=== PATIENT | male | born 1975 | race Caucasian/White ===

== ENCOUNTER → 2020-06-10 14:25 | Outpatient (BNVA) | payer MEDICAID, SELFPAY | PROVIDERS: PCP Internal Medicine Geriatric Medicine; Visit Provider Surgery | DX: R10.31 Right lower quadrant pain (principal) | CPT/HCPCS: 99202 ==

== ENCOUNTER 2020-06-23 13:42 | Outpatient (REF) | payer MEDICAID, SELFPAY ==
--- NOTE | ~2020-06-23 | US_ITS ---
EXAMINATION: US pelvic, LIMITED/FOLLOW UP CLINICAL INFORMATION: Right lower quadrant pain COMPARISON: None TECHNIQUE: Grayscale and color imaging of the right lower quadrant/groin region using a linear transducer FINDINGS: There is a right groin hernia containing peristalsing bowel bowel. The neck of the hernia measures 1 cm. US/US pelvic limited IMPRESSION: Right groin hernia containing bowel.
== END 2020-06-23 13:43 | disposition home or self-care (01) ==
LOC: HO.US 13:42
PROVIDERS: PCP Internal Medicine Geriatric Medicine; Visit Provider Surgery
DX: R10.31 Right lower quadrant pain (principal)
CPT/HCPCS: 76857

== ENCOUNTER → 2020-06-30 13:11 | Outpatient (BNVA) | payer MEDICAID, SELFPAY | PROVIDERS: PCP Internal Medicine Geriatric Medicine; Visit Provider Surgery | DX: K40.90 Unilateral inguinal hernia, without obstruction or gangrene, not specified as recurrent (principal) | CPT/HCPCS: 99212 ==

== ENCOUNTER 2020-07-06 10:33 | Day surgery (SDC) | payer MEDICAID, SELFPAY ==
--- NOTE | 2020-07-02 13:11 | HO.ANESPROP2 ---
Documented by User: eKcia Griffith 07/02/20 13:13 HPI - Anesthesia Eval Consult details Narrative: 44yo M for Right Hernia Repair Inguinal with Mesh PMFSH Active Problems Active Problems: All Active Problems (Updated 06/30/20 @ 14:07 by Curt Ruiz MD) Right inguinal hernia (Acute) Past Medical History Medical History Asthma Depression GERD (gastroesophageal reflux disease) Surgical History Surgical History History of back surgery History of neck surgery Social History Social History Alcohol intake: never Smoking Status: Never smoker Advance Directives: No Advance Directives Information Provided: Yes Meds Allergies Allergy/AdvReac Type Severity Reaction Status Date / Time No Known Allergies Allergy Verified 07/06/20 10:50 Home Medications Medication Instructions Recorded Confirmed Last Taken Type oxycodone 1 tab PO Q12H 07/06/20 07/06/20 Unknown History Exam Exam Date and Time: July 02, 2020 1311 Assessment and Plan Assessment Anesthesia Assessment: Chart Reviewed Documented by User: Irena Bishop 07/06/20 11:16 PMFSH Past Medical History Medical History Asthma Depression GERD (gastroesophageal reflux disease) Surgical History Surgical History History of back surgery History of neck surgery Social History Social History Alcohol intake: never Smoking Status: Never smoker Advance Directives: No Advance Directives Information Provided: Yes Meds Allergies Allergy/AdvReac Type Severity Reaction Status Date / Time No Known Allergies Allergy Verified 07/06/20 10:50 Home Medications Medication Instructions Recorded Confirmed Last Taken Type oxycodone 1 tab PO Q12H 07/06/20 07/06/20 Unknown History Exam Airway Mallampati Class: II TM Dist: >3cm Loose/Missing/Broken Teeth: No Heart: RRR Lungs: CTA Assessment and Plan Assessment Anesthesia Assessment: Anesthesia Plan Discussed and Chart Reviewed Final Anesthetic Review NPO: Yes ASA Class: II Final Preanesthetic Review: No Changes in Pt Med Stat, Meds/Allgs Chart Reviewed and Consent Obtained/Reviewed Patient Risk: Low Procedure Risk: Low Anesthetic Plan Anesthetic Plan: GA Disposition: Standard PACU
[2020-07-06] VITALS (11 sets, daily range): BP systolic 120–145; BP diastolic 64–86; PULSE 64–75; RESP 16–20; TEMP 36.3–37; O2SAT 96–100; BMI 25.0
[2020-07-06] MEDS: Lactated Ringers 1,000 ML 100 ML IVCONT (11:23)
--- NOTE | 2020-07-06 12:39 | W.PM.OPN ---
Operative Note Operative Note Date of Service: 07/06/20 Narrative: Preoperative diagnosis: Right inguinal hernia Postoperative diagnosis: Same Procedure: Repair of right inguinal hernia Surgeon: Curt Ruiz MD Sequins Stringer: None Anesthesia: General LMA Indications for procedure: 44-year-old male presenting with a painful lump in the right groin which is increasing in size. On examination patient has a large right inguinal hernia which increases in size with Valsalva maneuvers. Operative findings:. Moderate-sized indirect right inguinal hernia Specimen: Hernia sac, lipoma of cord Estimated blood loss: 5 mL Complications: None Procedure details: Patient was brought to the OR and placed in a supine position. After administering general anesthesia the patient's abdomen was prepped with ChloraPrep and draped in a sterile fashion. A surgical time-out was called the consent confirmed. Patient received preoperative antibiotics and Venodyne boots were in place. Local anesthesia consisting of 0.5% Sensorcaine with epinephrine was infiltrated over the right inguinal ligament. Incision was then made in oblique fashion over the inguinal ligament. This carried out through subcutaneous tissue past Imani's fashion up to the external oblique aponeurosis. Additional local was infiltrated below the external oblique aponeurosis. This was then incised with a scalpel wide with the Metzenbaum scissors. Spermatic cord was then dissected free from the surrounding inguinal canal and retracted using a Nehemiah drain. The floor of the inguinal canal was examined and no direct hernia was identified. Fibers of the cremasteric muscle were then and an indirect sac was identified. This was dissected down to the internal ring. The sac was then opened and the contents reduced. The sac was then ligated with a 0 Polysorb suture. The sac was then divided above this. This was sent to the pathology department as a specimen. Attention was then directed to the direct space which was divided between Allis clamps. Fibers of the internal oblique and transversalis aponeurosis were divided and the preperitoneal space was opened. This was opened further with an open Ray-Pat. A medium PHS mesh was then obtained. The circular underlay was placed into the preperitoneal space and deployed. The overlay was then secured to the pubic tubercle, conjoined tendon, and shelving edge of the inguinal ligament using interrupted 0 Polysorb sutures. A slit was made in the mesh and the mesh were wrapped around the spermatic cord at the internal ring. This was then secured to the shelving edge of the inguinal ligament using the 0 Polysorb suture. This was felt to be loose enough to allow the tip of an index finger to pass. Wounds were checked for hemostasis. Wounds were irrigated with saline solution and suctioned dry. External oblique aponeurosis was then closed using a running 2 0 Polysorb suture. Imani's fascia and dermis reapproximated using interrupted 3-0 Polysorb sutures. Skin was then closed using a running subcuticular 4-0 Polysorb suture. Steri-Strips 2 x 2 gauze and Tegaderm were then applied. The patient tolerated the procedure well. Sponge, instrument, needle counts reported as correct. Patient was transferred to PACU in stable condition.
[2020-07-06] MEDS: oxyCODONE HCl Immed Release 5 MG TABLET 10 MG PO (12:55)
[2020-07-06] MEDS: Dextrose 5 % and Lactated Ring 1,000 ML 80 ML IVCONT (15:21)
[2020-07-06] MEDS: 0.9 % Sodium Chloride Flush 3 ML SYRINGE IVFLUSH (15:35)
[2020-07-06] MEDS: Magnesium Hydrox/Alum Hydrox 30 ML ORAL.SUSP PO (17:26)
[2020-07-06] MEDS: oxyCODONE HCl Immed Release 5 MG TABLET PO (19:25)
[2020-07-07] MEDS: Dextrose 5 % and Lactated Ring 1,000 ML 80 ML IVCONT (03:32)
[2020-07-07 03:36] VITALS: BP 115/65; PULSE 62; RESP 20; TEMP 36.3; O2SAT 97
[2020-07-07] MEDS: oxyCODONE HCl Immed Release 5 MG TABLET PO (06:26)
[2020-07-07 07:40] VITALS: BP 107/80; PULSE 93; RESP 18; TEMP 36.8; O2SAT 98
--- NOTE | 2020-07-07 07:47 | P.DS_ITS ---
DS: Providers Provider Date of Service: 07/07/20 Date of admission: 07/06/20 13:27 Primary care physician: Abdon Lopes MD Discharging clinician: Curt Ruiz DS: Diagnosis Discharge Diagnosis (1) H/O inguinal hernia repair: Status: Acute (2) Right inguinal hernia: Status: Acute DS: Medications Discharge Medications Home Medications: Home Medications Medication Instructions Recorded Confirmed oxycodone 1 tab PO Q12H 07/06/20 07/06/20 Previous Rx's Medication Instructions Recorded oxycodone 5 mg PO Q6H PRN 5 Days #14 tab 07/07/20 DS: Summary Hospital Course Hospital Course: [age] year old male patient presenting with complaints of a painful lump in the right groin. The lump would increase in size with lifting and straining but reduce with light pressure or while in the supine position. On physical examination the patient was found to have a right inguinal hernia noted in the standing position which increases in size with Valsalva maneuvers. The hernia is easily reducible with light pressure. Patient requested repair of this right inguinal hernia and he was subsequently taken to the operating room as a short- stay surgery on 07/07/2020. Operative findings included a moderate size indirect right inguinal hernia. This was repaired using a medium sized PHS mesh. The patient tolerated the procedure well. Because of the patient's incisional pain and lack of help at home he was kept as a observation patient overnight. He tolerated the observation well but does report incisional pain still. The pain seems to be covered with oral pain medication. He did report heartburn and was given antacid for this. The patient is to be discharged to home today (07/07/2020) to home. He was instructed to avoid lifting greater than 10 lb for the next 4-5 weeks. He should return to the office in approximately 1 week for wound check. He should remove the Tegaderm dressing after 3 days. He should call the office for fever, chills, nausea, vomiting, or other concerns. Time Spent with Patient Time attestation: Total time spent providing and/or coordinating discharge services: Discharge coordination time: Less than 30 minutes Physical Exam Vital Signs: Vital Signs: Last Vital Signs Temp 97.3 F 07/07/20 03:36 Pulse 62 07/07/20 03:36 Resp 20 07/07/20 03:36 BP 115/65 07/07/20 03:36 Pulse Ox 97 07/07/20 03:36 Body Mass Index 25.0 Const: General: cooperative, healthy appearing, comfortable, no acute di stress, well developed, alert, awake and Physically active Neck: Neck: Yes normal visual inspection and Yes full ROM Resp: Effort & Inspection: normal respiratory effort, no cough, no stridor and not tachypneic Auscultation: no rhonchi and no wheezes GI: Other: Incision in the right groin is clean, dry, and intact without redness or discharge Inspection: Yes normal to inspection Skin: General skin exam: no rashes or lesions noted Extrem: General: Yes no clubbing, cyanosis or edema DS: Data Data Completed and Pending Pending studies at discharge: Pending at discharge 07/06/20 11:57 Surgical [PTH] Routine Discharge Plan Discharge Patient Disposition: Home, Self-Care Referrals: Name,MD Abdon [Primary Care Provider] - Discharge Medications: New oxycodone 5 mg tablet 5 mg PO Q6H PRN (Reason: pain (scale score 7-10)) 5 Days Qty: 14 RF: 0 Continued oxycodone 10 mg tablet 1 tab PO Q12H RF: 0 Discharge Orders: Discharge Order (Routine); Ordered 07/07/20 Ordered By: Curt Ruiz Diet: advance to usual diet Activity on Discharge: No heavy lifting Activity Restrictions/Additional Instructions: No lifting > 10 pounds for 4 weeks No driving for one week Ice to the incision x 24 hours Remove dressing in 3 days Follow up in office in one week. Care Plan Goals: Return to normal activity and normal diet Health Concerns: Right inguinal hernia Plan of Treatment: Repair of right inguinal hernia with mesh Assessment: Right inguinal hernia Patient Instructions: Inguinal Hernia Repair (DC)
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
--- NOTE | 2020-07-07 11:54 | HO.POSTANES ---
Post Anesthesia Evaluation Post Anesthesia Evaluation Vital Signs: Vital Signs Temp Pulse Resp BP Pulse Ox 07/07/20 07:40 98.3 F 93 18 107/80 98 07/07/20 03:36 97.3 F 62 20 115/65 97 Anesthesia: General Mental Status: Awake Pain Control: Satisfactory Nausea/Vomiting: None Hydration: Adequate Anesthesia-Related Issues: No Anes. Related Issues
== END 2020-07-07 11:15 | disposition home or self-care (01) ==
LOC: HO.SSS 11:16 → HO.S3 07-07 07:19
PROVIDERS: PCP Internal Medicine Geriatric Medicine; Visit Provider Surgery
PROC: (CPT 49505; principal; 2020-07-06 12:30)
DX: K40.90 Unilateral inguinal hernia, without obstruction or gangrene, not specified as recurrent (principal); D17.6 Benign lipomatous neoplasm of spermatic cord; K21.9 Gastro-esophageal reflux disease without esophagitis; J45.909 Unspecified asthma, uncomplicated; F32.9 Major depressive disorder, single episode, unspecified; Z79.891 Long term (current) use of opiate analgesic
CPT/HCPCS: 49505; 88302; 88304; C1781; J0131; J0690; J1100; J1170; J2250; J2405; J3010

== ENCOUNTER → 2020-07-17 14:34 | Outpatient (BNVA) | payer MEDICAID, SELFPAY | PROVIDERS: PCP Internal Medicine Geriatric Medicine; Visit Provider Surgery ==

== ENCOUNTER 2020-12-23 16:19 | Emergency (ER) | payer MEDICAID, SELFPAY ==
[2020-12-23 16:35] VITALS: BP 135/81; PULSE 74; RESP 18; TEMP 36.8; O2SAT 77; BMI 22.3
--- NOTE | 2020-12-23 17:35 | ED_ITS ---
HPI - Male Genitourinary General Chief complaint: Urogenital-Male Stated complaint: abd pain Time Seen by Provider: 12/23/20 17:05 Source: patient Limitations: no limitations and language barrier History of Present Illness HPI Narrative: Patient presents to the ER complaining of painful urination he believes he may again STD from use of public bathroom. Patient has a history of prior inguinal hernia repair. At this time denies nausea vomiting fever chills chest pain shortness of breath. Patient denies prior history of STDs. Patient states he called his son who is an RN in advised him to the hospital to be checked. Patient describes the pain as burning with urination. Related Data Home Medications Medication Instructions Recorded Confirmed oxycodone 10 mg tablet 1 tab PO Q12H 07/06/20 07/06/20 Previous Rx's Medication Instructions Recorded oxycodone 5 mg tablet 5 mg PO Q6H PRN #14 tab 07/07/20 phenazopyridine 100 mg tablet 100 mg PO TID #6 tab 12/23/20 (Pyridium) Allergies Allergy/AdvReac Type Severity Reaction Status Date / Time No Known Allergies Allergy Verified 07/06/20 10:50 Review of Systems Constitutional: Constitutional: Denies chills, Denies fever(s) and Denies head ache(s) ENT: Denies headache(s) Cardiovascular: Cardiovascular: Denies chest pain and Denies dyspnea Respiratory: Respiratory: Denies dyspnea Gastrointestinal: Gastrointestinal: Denies diarrhea, Denies nausea and Denies vomiting Genitourinary: Genitourinary: Reports dysuria, Denies flank pain, Denies nocturia and Denies penile discharge Musculoskeletal: Musculoskeletal: Reports no additional musculoskeletal complaints Neurologic: Denies headache(s) Hematologic/Lymphatic: Hematologic/Lymphatic: Denies easy bleeding PMFSH Past Medical History Attestation statement: The following information was validated with the patient. Medical History Asthma Depression GERD (gastroesophageal reflux disease) Surgical History H/O inguinal hernia repair History of back surgery History of neck surgery Social History Social History Alcohol intake: never Advance Directives: No Advance Directives Information Provided: No service: No Current occupational status: unemployed Physical Exam Vital Signs: Vital Signs: Last Vital Signs Temp 98.2 F 12/23/20 16:35 Pulse 74 12/23/20 16:35 Resp 18 12/23/20 16:35 BP 135/81 12/23/20 16:35 Pulse Ox 77 L 12/23/20 16:35 Body Mass Index 22.3 vital signs have been reviewed as normal and appeared to be correct. Blood pressure normal. Heart rate normal. Respiration rate normal. Temperature normal. Oxygen saturation normal. Appearance: Alert. Oriented X3. No acute distress. Head: Normal external exam. Normocephalic. Atraumatic. Eyes: PERRLA. EOMI. ENT: Pharynx normal. Uvula midline. Moist mucous membranes. Neck: Soft full range of motion CVS: Heart regular rate and rhythm no murmurs and rubs Respiratory: Breath sounds are clear to auscultation bilaterally. No accessory muscle use noted. Abdomen: Soft nontender no rebound or guarding positive bowel sounds : Penile shaft no lesions noted no obvious discharge noted nontender Skin: Skin warm and dry. Normal skin color. Normal skin turgor. No rashes/lesions/lacerations noted. Extremities: No lower extremity edema. Extremities exhibit normal range of motion. Extremities nontender. Neuro: Oriented X 3. No motor deficit. No sensory deficit. Reflexes normal. Course Course Course Narrative: Dysuria Chlamydia Gonorrhea UTI UA for nitrates negative for leuk esterase UA culture for chlamydia gonorrhea pending It is unlikely patient got an STD from using a public bathroom. At this time will wait for UA culture MDM - Male Genitourinary Lab Data Labs: Lab Results 12/23/20 Range/Units 17:29 Urine Color YELLOW Urine Appearance CLEAR Urine pH 6.5 (5.0-8.0) Ur Specific [place] 1.010 (1.005-1.025) Urine Protein NEG (NEG-TRACE) MG/DL Urine Glucose (UA) NEG (NEG) MG/DL Urine Ketones NEG (NEG) MG/DL Urine Blood NEG (NEG) Urine Nitrite NEG (NEG) Ur Leukocyte Esterase NEG (NEG) Discharge Plan Discharge Clinical Impression: Cystitis Patient Disposition: Home, Self-Care Instructions: Dysuria (ED) Additional Instructions: Urine cultures pending for STDs Increase fluids rest Prescriptions: New phenazopyridine [Pyridium] 100 mg tablet 100 mg PO TID Qty: 6 RF: 0 No Action oxycodone 10 mg tablet 1 tab PO Q12H RF: 0 oxycodone 5 mg tablet 5 mg PO Q6H PRN (Reason: pain (scale score 7-10)) Qty: 14 RF: 0 Print Language: Kittitian
[2020-12-23 17:37] LABS: Appearance Urine CLEAR; Color Urine YELLOW; Glucose Urine UA NEG (NEG); Leukocyte Esterase Urine NEG (NEG); Nitrite Urine NEG (NEG); PH 6.5 (5.0-8.0); Urine Blood NEG (NEG); Urine Ketones NEG (NEG); Urine Protein NEG (NEG-TRACE)
[2020-12-23 18:00] VITALS: BP 144/87; PULSE 64; RESP 18; TEMP 37.1; O2SAT 99
[2020-12-24 01:39] LABS: CT PCR NOT DETECTED (Not Detect.); NG PCR NOT DETECTED (Not Detect.)
== END 2020-12-23 18:27 | disposition home or self-care (01) ==
LOC: HO.ED 18:10
PROVIDERS: Emergency Provider Internal Medicine; PCP Internal Medicine Geriatric Medicine
DX: N30.00 Acute cystitis without hematuria (principal); R30.0 Dysuria; Z79.899 Other long term (current) drug therapy; Z20.2 Contact with and (suspected) exposure to infections with a predominantly sexual mode of transmission
CPT/HCPCS: 81003; 87491; 87591; 99283

== ENCOUNTER 2021-02-06 00:54 | Emergency (ER) | payer OTHER, MEDICAID, SELFPAY ==
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
[2021-02-06 01:03] VITALS: BP 133/80; PULSE 101; RESP 16; TEMP 36.7; O2SAT 96; BMI 30.3
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
== END 2021-02-06 02:03 | disposition home or self-care (01) ==
PROVIDERS: Emergency Provider Internal Medicine
DX: S19.9XXA Unspecified injury of neck, initial encounter (principal); F10.920 Alcohol use, unspecified with intoxication, uncomplicated; M54.2 Cervicalgia; G44.309 Post-traumatic headache, unspecified, not intractable; V43.52XA Car driver injured in collision with other type car in traffic accident, initial encounter; Y93.9 Activity, unspecified; Y92.410 Unspecified street and highway as the place of occurrence of the external cause; Y99.9 Unspecified external cause status; Z79.899 Other long term (current) drug therapy
CPT/HCPCS: 70450; 72125; 99283; 99284

== ENCOUNTER 2022-11-16 09:26 | Outpatient (REF) | payer MEDICAID, SELFPAY ==
--- NOTE | ~2022-11-16 | XR_ITS ---
EXAMINATION: XR HAND, RIGHT INDICATION: Pain Patient reports 3 months of bilateral hand swelling and pain COMPARISON: Same-day left hand TECHNIQUE: PA, lateral, and oblique views of the right hand FINDINGS: The bones are intact. No fracture. Alignment is anatomic. Joint spaces are maintained. No erosions or soft tissue calcifications. XR/XR hand RT min 3V IMPRESSION: No bony abnormality.
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
== END 2022-11-16 09:27 | disposition home or self-care (01) ==
LOC: HO.HHCX 09:26
PROVIDERS: Visit Provider Internal Medicine Geriatric Medicine
DX: M79.641 Pain in right hand (principal); M79.642 Pain in left hand; R60.0 Localized edema
CPT/HCPCS: 73130

== ENCOUNTER 2022-11-16 10:10 | Outpatient (REF) | payer MEDICAID, SELFPAY ==
[2022-11-16 11:59] LABS: Rheumatoid Factor < 13.0 IU/mL (<15.0)
[2022-11-16 12:26] LABS: Anion Gap 12 (12-20); Blood Urea Nitrogen 10 mg/dL (9-16); Calcium 9.6 mg/dL (8.4-10.2); Carbon Dioxide 25 mmol/L (22-29); Chloride 108 mmol/L (96-108); Estimated Glomerular Filt Rate > 60; Glucose Random 104 mg/dL (60-115); Sodium 141 mmol/L (135-145)
[2022-11-16 12:37] LABS: Erythrocyte Sedimentation Rate 5 MM/HR (0-15)
[2022-11-21 12:34] LABS: Anti Nuclear Antibody Pattern Nuclear, Homogeneous; Anti Nuclear Antibody Screen POSITIVE (NEGATIVE); Anti Nuclear Antibody Titer 1:40 titer
== END 2022-11-16 10:11 | disposition home or self-care (01) ==
LOC: HO.HHCL 10:10
PROVIDERS: Visit Provider Internal Medicine Geriatric Medicine
DX: M79.641 Pain in right hand (principal); M79.642 Pain in left hand; R60.0 Localized edema
CPT/HCPCS: 36415; 80048; 85652; 86038; 86039; 86431

== ENCOUNTER 2023-02-01 08:49 | Outpatient (REF) | payer MEDICAID, SELFPAY ==
[2023-02-01 11:11] LABS: MANUAL DIFF FLAG NO
[2023-02-01 11:33] LABS: Basophils Percent Auto 0.7 % (0-2); Eosinophils Absolute Auto 0.2 X10*3/uL (0.0-0.4); Eosinophils Percent Auto 4.9 % (0-4); Hematocrit 41.5 % (42.0-52.0); Lymphocytes Absolute Auto 1.2 X10*3/uL (1.2-4.9); Lymphocytes Percent Auto 26.9 % (20-40); Mean Corpuscular HGB Conc 33.7 g/dl (31.0-36.0); Mean Corpuscular Hemoglobin 32.6 pg (27.0-33.0); Mean Corpuscular Volume 96.7 fL (80.0-98.0); Mean Platelet Volume 9.4 fL (9.4-12.4); Monocytes Absolute Auto 0.3 X10*3/uL (0.1-1.2); Monocytes Percent Auto 7.6 % (2-11); Neutrophils Absolute Auto 2.6 x10*3/uL (2.0-8.3); Neutrophils Percent Auto 59.9 % (45-73); Platelet Count 266 X10*3/uL (160-400); Red Blood Count 4.29 X10*6/uL (4.60-5.80); Red Cell Distribution Width 13.1 % (11.0-16.0); White Blood Count 4.3 X10*3/uL (4.8-10.8)
[2023-02-01 11:56] LABS: Alanine Aminotransferase 8 U/L (0-40); Albumin Level 4.2 g/dL (3.5-5.0); Alkaline Phosphatase 85 U/L (39-117); Anion Gap 12 (12-20); Aspartate Amino Transferase 14 U/L (5-37); Bilirubin Total 0.4 mg/dL (0.0-1.0); Blood Urea Nitrogen 11 mg/dL (9-16); Calcium 9.3 mg/dL (8.4-10.2); Carbon Dioxide 25 mmol/L (22-29); Chloride 108 mmol/L (96-108); Cholesterol 166 mg/dL (<200); Estimated Glomerular Filt Rate > 60; Glucose Random 99 mg/dL (60-115); HDL Cholesterol 63 mg/dL (>40); LDL Cholesterol Calculated 96 mg/dL (<100); Potassium 3.8 mmol/L (3.3-5.1); Sodium 141 mmol/L (135-145); Total Protein 7.2 g/dL (6.5-8.0); Triglycerides 39 mg/dL (<150)
[2023-02-01 12:02] LABS: HBS Num1 0.19 mIU/mL (0-7.99); HBc Num1 0.07 S/CO (0.00-0.79); HBsAGNum1 0.29 S/CO (0.00-0.99); HIV AB/AG Nonreactive (Nonreactive); HIV Num 1 0.06 S/CO (0.00-0.99); Hepatitis B Core Antibody Nonreactive (Nonreactive); Hepatitis B Surface Antigen Negative (Negative); ~HepC Num1 0.08 S/CO (0.00-0.79); ~Hepatitis B Surface Antibody NONREACTIVE (Nonreactive); ~Hepatitis C Antibody Nonreactive (Nonreactive)
[2023-02-01 13:58] LABS: CT PCR NOT DETECTED (Not Detect.); NG PCR NOT DETECTED (Not Detect.)
[2023-02-02 12:08] LABS: RPR Rapid Plasma Reagin NON-REACTIVE (NON-REACTIVE)
== END 2023-02-01 08:50 | disposition home or self-care (01) ==
LOC: HO.HHCL 08:49
PROVIDERS: Visit Provider Internal Medicine Geriatric Medicine
DX: I10 Essential (primary) hypertension (principal); Z11.3 Encounter for screening for infections with a predominantly sexual mode of transmission; Z13.220 Encounter for screening for lipoid disorders
CPT/HCPCS: 0353U; 80053; 80061; 85025; 86592; 86704; 86706; 86803; 87340; 87389

== ENCOUNTER 2023-03-15 09:49 | Emergency (ER) | payer MEDICAID, SELFPAY ==
--- NOTE | ~2023-03-15 | US_ITS ---
EXAMINATION: US SCROTUM CLINICAL INFORMATION: Pain COMPARISON: None available. TECHNIQUE: A sonogram of the scrotum was performed assessing zaragoza-scale appearance and color Doppler flow. Spectral Doppler analysis of the arterial and venous flow were performed in the testes bilaterally. FINDINGS: RIGHT: Right testicle measures 4.4 x 2.7 x 3.2 cm, volume 20 mL. Slightly heterogeneous echotexture. No focal testicular parenchymal lesions are visualized. Spectral Doppler analysis of the arterial and venous flow is slightly increased in the right testis. Small right hydrocele. Right epididymal head is normal in size. No right hydrocele is seen. Right epididymal Doppler flow is normal. LEFT: Left testicle measures 4.3 x 2.4 x 3 cm, volume 16 mL. Slightly heterogeneous echotexture.. No focal testicular parenchymal lesions are visualized. Spectral Doppler analysis of the arterial and venous flow is slightly increased in the left testis. Small left hydrocele. Left epididymal head is normal in size. No left varicocele is seen. Left epididymal Doppler flow is normal. US/US scrotum IMPRESSION: Slightly heterogeneous appearing testicles with increased vascularity questionable for orchitis.
--- NOTE | ~2023-03-15 | US_ITS ---
EXAMINATION: US SCROTUM CLINICAL INFORMATION: Pain COMPARISON: None available. TECHNIQUE: A sonogram of the scrotum was performed assessing zaragoza-scale appearance and color Doppler flow. Spectral Doppler analysis of the arterial and venous flow were performed in the testes bilaterally. FINDINGS: RIGHT: Right testicle measures 4.4 x 2.7 x 3.2 cm, volume 20 mL. Slightly heterogeneous echotexture. No focal testicular parenchymal lesions are visualized. Spectral Doppler analysis of the arterial and venous flow is slightly increased in the right testis. Small right hydrocele. Right epididymal head is normal in size. No right hydrocele is seen. Right epididymal Doppler flow is normal. LEFT: Left testicle measures 4.3 x 2.4 x 3 cm, volume 16 mL. Slightly heterogeneous echotexture.. No focal testicular parenchymal lesions are visualized. Spectral Doppler analysis of the arterial and venous flow is slightly increased in the left testis. Small left hydrocele. Left epididymal head is normal in size. No left varicocele is seen. Left epididymal Doppler flow is normal. US/US scrotum doppler IMPRESSION: Slightly heterogeneous appearing testicles with increased vascularity questionable for orchitis.
[2023-03-15 10:02] VITALS: BP 146/73; PULSE 73; RESP 19; TEMP 36.6; O2SAT 98; BMI 26.6
--- NOTE | 2023-03-15 15:04 | ED.MALEGU ---
HPI - Male Genitourinary General Chief complaint: Urogenital-Male Stated complaint: Testicular Pain Time Seen by Provider: 03/15/23 15:04 Source: patient and director medical science Mode of arrival: ambulatory Limitations: language barrier History of Present Illness HPI Narrative: Patient is a 47 year old assigned male at with no reported medical history presenting to the emergency department today with right sided testicular pain. Patient states that over the last 2 weeks he has had right sided testicular pain. Patient denies any dizziness, lightheadedness, abdominal pain, nausea, vomiting, fever, chills, blurry vision, double vision, loss of vision, chest pain, difficulty breathing, shortness of breath, back pain, night sweats, pain with urination, increased urinary frequency, increased urinary urgency, blood in his urine or stool, syncope or a near syncopal episode, recent trauma or falls, bowel incontinence, bladder incontinence, bowel retention, bladder retention, or any other complaints at this time. MD Complaint: testicle pain Onset (ago): week(s) (2) Duration: constant Location: right testicle Severity: mild Severity scale (1-10): 3 Quality: aching and dull Relieving factors: none Exacerbating factors: none Associated symptoms: Reports denies other symptoms Related Data Home Medications Medication Instructions Recorded Confirmed oxycodone 10 mg tablet 1 tab PO Q12H 07/06/20 07/06/20 Previous Rx's Medication Instructions Recorded oxycodone 5 mg tablet 5 mg PO Q6H PRN pain (scale score 07/07/20 7-10) #14 tabs phenazopyridine 100 mg tablet 100 mg PO TID 6 doses #6 tabs 12/23/20 (Pyridium) doxycycline hyclate 100 mg tablet 100 mg PO BID 7 days #14 tabs 03/15/23 Allergies Allergy/AdvReac Type Severity Reaction Status Date / Time No Known Allergies Allergy Verified 03/15/23 10:02 Review of Systems Constitutional: Constitutional: Reports no additional constitutional complaints, Denies chills, Denies fever(s) and Denies night sweats Eyes: Eyes: Reports no additional eye complaints, Denies blurry vision, Denies change in vision, Denies diplopia, Denies eye discharge, Denies loss of vision and Denies eye pain ENT: Denies dizziness Cardiovascular: Cardiovascular: Reports no additional cardiovascular complaints, Denies chest pain, Denies lightheadedness, Denies Loss of Consciousness and Denies dyspnea Respiratory: Respiratory: Reports no additional respiratory complaints and Denies dyspnea Gastrointestinal: Gastrointestinal: Reports no additional gastrointestinal complaints, Denies abdominal pain, Denies melena, Denies hematochezia, Denies change in bowel habits and Denies change in stool character Genitourinary: Genitourinary: Reports no additional male genitourinary complaints, Denies hematuria, Denies oliguria, Denies difficulty urinating, Denies dysuria, Reports testicular pain, Denies urinary frequency, Denies urinary hesitancy, Denies urinary incontinence and Denies urinary urgency Musculoskeletal: Musculoskeletal: Reports no additional musculoskeletal complaints, Denies numbness and Denies tingling Neurologic: Denies dizziness, Denies loss of vision, Denies numbness and Denies tingling Psychiatric: Psychiatric: Reports no additional psychiatric complaints Endocrine: Endocrine: Reports no additional endocrine complaints Hematologic/Lymphatic: Hematologic/Lymphatic: Reports no additional hematologic/lymphatic complaints Allergic/Immunologic: Allergic/Immunologic: Reports no additional allergic/immunologic complaints PMFSH Past Medical History Attestation statement: The following information was validated with the patient. Source: old records reviewed and nursing notes reviewed Medical History GERD (gastroesophageal reflux disease) Depression Asthma Surgical History H/O inguinal hernia repair History of back surgery History of neck surgery Social History Social History Alcohol intake: never Advance Directives: No Advance Directives Information Provided: No service: No Current occupational status: unemployed Physical Exam Vital Signs: Vital Signs: Last Vital Signs Temp 98 F 03/15/23 10:02 Pulse 73 03/15/23 10:02 Resp 19 03/15/23 10:02 BP 146/73 H 03/15/23 10:02 Pulse Ox 98 03/15/23 10:02 O2 Del Method Room Air 03/15/23 10:02 BMI result Body Mass Index 26.6 Const: General: cooperative, no acute distress, alert and awake Nutritional Appearance: well nourished Orientation/consciousness: patient oriented x3 Limitations: no limitations HEENT: Head: Yes normal to inspection and Yes atraumatic Ears: hearing grossly normal bilaterally and external ears normal General nose exam: Normal external nose present, no nasal discharge noted and no epistaxis Face and sinus: Yes normal facial exam, No abrasion and No laceration Mouth: Normal oral and palatal mucosa present, no drooling and no muffled voice Eyes: General: appearance normal, both eyes and all related structures Periorbital: periorbital findings normal Eyelids: Yes eyelids normal Conjunctivae: conjunctivae normal Pupils: Equal, round and reactive pupils present EOM: EOMs intact bilaterally Neck: Neck: Yes normal visual inspection, Yes full ROM and Yes no lymphadenopathy Chest: Chest palpation & inspection: normal inspection of the chest Resp: Effort & Inspection: normal respiratory effort and able to speak in complete sentences GI: Inspection: Yes normal to inspection : Male General Exam: Yes normal external exam Neuro: General: patient oriented x3 and moves all extremities Cranial nerves: Yes Equal, round and reactive pupils present Cognition (Neuro): normal cognition Motor exam (neuro): 5/5 motor strength present throughout Sensory Exam: Normal double simultaneous stimulation for sensation Coordination: [id number] test normal Extrem: General: Yes normal to inspection, Yes full ROM and Yes capillary refill normal Psych: Appearance: grossly normal Mental Status: mental status grossly normal Affect: normal affect Attitude: cooperative Thought process: Normal thought process present Thought content: Normal thought content present Insight: Good insight present (Psych) Medications Administered Discontinued Medications Generic Name Dose Route Start Last Admin Trade Name Freq PRN Reason Stop Dose Admin Ceftriaxone Sodium 500 mg/ 0 mg 03/15/23 15:34 03/15/23 15:42 Lidocaine HCl 1 ml IM 03/15/23 15:35 1 kit ONCE ONE Administration Doxycycline Monohydrate 100 mg 03/15/23 15:34 03/15/23 15:41 Doxycycline Monohydrate 100 Mg Capsule PO 03/15/23 15:35 100 mg ONCE ONE Administration Medical Decision Making Medical Decision Making [facility] Narrative: Patient is a 45 year old assigned male at with no reported medical history presenting to the emergency department today with testicular pain. Patient's physical exam was unremarkable. Patient's urine showed no acute process. Patient's scrotal US showed evidence of orchitis. I explained my physical exam findings as well as all test results to the patient. I answered all questions asked by the patient. I stressed the importance of the patient taking his medication as prescribed. I stressed the importance of the patient following up with his primary care provider and a urologist. I stressed the importance of the patient returning to the emergency department immediately if his symptoms were to worsen or if he were to develop any dizziness, shortness of breath, difficulty breathing, chest pain, blurry vision, loss of vision, nausea, vomiting, abdominal pain, fever, chills, back pain, or any other complaints. Patient verbalized agreement and understanding with this treatment plan and discharge. Differential Diagnosis Differential Diagnoses: The differential diagnosis associated with the presentation includes Testicular pain Testicular torsion Orchitis Epididymitis Admission/Observation Consideration of admission/observation: Escalation of care including admission/observation considered Patient would have been admitted to the hospital had his work up had any findings where hospital admission was appropriate and his clinical presentation warranted hospital admission. Lab Data MDM Lab Attestation statement: I reviewed the patient's lab results. My interpretation of these studies and their corresponding values is that they are grossly normal. Labs: Lab Results 03/15/23 Range/Units 15:41 Urine Color Yellow Urine Appearance Clear Urine pH 7.5 (5.0-9.0) Ur Specific [place] 1.010 (1.005-1.025) Urine Protein Negative (Neg-Trace) mg/dL Urine Glucose (UA) Negative (Negative) mg/dL Urine Ketones Negative (Negative) mg/dL Urine Blood Negative (Negative) Urine Nitrite Negative (Negative) Ur Leukocyte Esterase Negative (Negative) Independent Interpretation I performed an independent interpretation of an: Ultrasound Interpretation: My interpretation is in agreement with the radiologist's impression of this imaging study. EXAMINATION: US SCROTUM CLINICAL INFORMATION: Pain COMPARISON: None available. TECHNIQUE: A sonogram of the scrotum was performed assessing zaragoza-scale appearance and color Doppler flow. Spectral Doppler analysis of the arterial and venous flow were performed in the testes bilaterally. FINDINGS: RIGHT: Right testicle measures 4.4 x 2.7 x 3.2 cm, volume 20 mL. Slightly heterogeneous echotexture. No focal testicular parenchymal lesions are visualized. Spectral Doppler analysis of the arterial and venous flow is slightly increased in the right testis. Small right hydrocele. Right epididymal head is normal in size. No right hydrocele is seen. Right epididymal Doppler flow is normal. LEFT: Left testicle measures 4.3 x 2.4 x 3 cm, volume 16 mL. Slightly heterogeneous echotexture.. No focal testicular parenchymal lesions are visualized. Spectral Doppler analysis of the arterial and venous flow is slightly increased in the left testis. Small left hydrocele. Left epididymal head is normal in size. No left varicocele is seen. Left epididymal Doppler flow is normal. US/US scrotum IMPRESSION: Slightly heterogeneous appearing testicles with increased vascularity questionable for orchitis. Dictated By: Irena Escudero MD Signed By: Electronically signed by Irena Escudero MD 03/15/23 6926 Radiology Impression Discussion of test interpretation with radiology: I have reviewed the radiologist's reading. Prescription Management I considered prescription management with: Antibiotic (patient prescribed antibiotic) Discharge Plan Discharge Clinical Impression: Acute orchitis Patient Disposition: Home, Self-Care Instructions: Orchitis (ED) Additional Instructions: Follow up with your primary care provider and a urologist. Return to the emergency department immediately if your symptoms worsen or if you develop any dizziness, shortness of breath, difficulty breathing, chest pain, blurry vision, loss of vision, nausea, vomiting, abdominal pain, fever, chills, back pain, or any other complaints. Rehan un seguimiento con jeffries proveedor de atenci?n primaria y un ur?logo. Regrese al departamento de emergencias inmediatamente si collin s?ntomas empeoran o si presenta mareos, dificultad para respirar, dificultad para respirar, dolor en el pecho, visi?n borrosa, p?rdida de la visi?n, n?useas, v?mitos, dolor abdominal, fiebre, escalofr?os, dolor de espalda o cualquier otras quejas. Prescriptions: New doxycycline hyclate 100 mg tablet 100 mg PO BID 7 Days Qty: 14 0RF No Action oxycodone 10 mg tablet 1 tab PO Q12H oxycodone 5 mg tablet 5 mg PO Q6H PRN (Reason: pain (scale score 7-10)) Qty: 14 0RF phenazopyridine [Pyridium] 100 mg tablet 100 mg PO TID Qty: 6 0RF Referrals: [facility] [Provider Group] (Call to establish and follow up with a urologist. Llame para establecer y hacer un seguimiento con un ur?logo.) Name,MD Abdon [Primary Care Provider] - Interventions: ED Discharge Assessment Last Done: 03/15/23 15:57 Discharge Date/Time: 03/15/23 15:57 Print Language: Uzbek
[2023-03-15] MEDS: Doxycycline Monohydrate 100 MG CAPSULE PO (15:41)
[2023-03-15] MEDS: cefTRIAXone sodium 500 MG, Lidocaine HCl 1 % MPF 1 ML IM (15:42)
[2023-03-15 16:03] LABS: Appearance Urine Clear; Color Urine Yellow; Glucose Urine UA Negative (Negative); Leukocyte Esterase Urine Negative (Negative); Nitrite Urine Negative (Negative); PH 7.5 (5.0-9.0); Urine Blood Negative (Negative); Urine Ketones Negative (Negative); Urine Protein Negative (Neg-Trace)
== END 2023-03-15 15:57 | disposition home or self-care (01) ==
PROVIDERS: Physician Assistant Medical; Emergency Provider Emergency Medicine Emergency Medical Services; PCP Internal Medicine Geriatric Medicine
DX: N50.811 Right testicular pain (principal); R10.2 Pelvic and perineal pain; Z79.899 Other long term (current) drug therapy
CPT/HCPCS: 76870; 81003; 93975; 96372; 99282; 99284; J0696

== ENCOUNTER 2023-06-08 13:08 | Outpatient (AMB) | payer MEDICAID, SELFPAY ==
--- NOTE | 2023-06-08 13:23 | MHC.OFFVIS ---
Intake Vital Signs 06/08/23 13:40 Height 6 ft 1 in Weight 196 lb 2 oz BMI 25.9 BP 128/78 Blood Pressure Location Lt brachial Position Sitting Pulse 75 Intake Visit Reasons: right inguinal hernia, chronic pain Intake Note: Patient is seen in office for evaluation of a right inguinal hernia. Pt c/o: onset 6 months, admits to chronic pulsating pain, admits to heavy lifting taking groceries up a 4th floor, pain is worse with prolonged walking denies nausea, vomit, diarrhea or other concerns Associate Director Of Nursing Required: Yes Associate Director Of Nursing Language: Telephone Operators Supervisor Name: Hanh CHACON Information Interpreted: non-clinical & clinical Allergies No Known Allergies Allergy (Verified 06/08/23 13:40) HPI HPI Comments History of Present Illness Details 47-year-old male patient returning for evaluation of chronic right groin pain. He developed a right inguinal hernia after lifting groceries and reported significant pain in the right groin. He was subsequently identified to have had a small right inguinal hernia and underwent surgery on 07/06/2020. Findings were consistent with a moderate sized indirect right inguinal hernia. This was repaired using a medium PHS mesh as a short-stay surgery. He returns today complaining of persistent pain in the right groin. The pain began approximately 6 months ago and has persisted in the region of the incision extending down to the testicle. This began while lifting heavy groceries up to his 4th floor apartment. He feels increased pain when having sexual relationships. [facility] Medical History GERD (gastroesophageal reflux disease) Depression Asthma Surgical History H/O inguinal hernia repair (07/15/20) History of back surgery History of neck surgery Social History Alcohol intake: never service: No Current occupational status: unemployed Review of Systems Const Denies chills, Denies fever(s), Denies headache(s) and Denies poor appetite ENT Denies dizziness and Denies headache(s) Card Denies chest pain, Denies rapid heart rate, Denies palpitations and Denies slow heart rate Resp Denies chest congestion, Denies cough, Denies pain on inspiration and Denies wheezing GI Reports abdominal pain, Denies bloating, Denies change in stool character, Denies constipation, Denies diarrhea, Denies nausea, Denies vomiting and Denies hematemesis Musc Denies back pain, Denies arthralgias, Denies joint swelling and Denies numbness Skin/Breast Denies change in pigmentation, Denies erythema and Denies rash Neuro Denies dizziness, Denies headache(s) and Denies numbness Psych Denies anxiety and Denies depression Endo Denies palpitations Saul/Lymph Denies easy bleeding, Denies easy bruising and Denies lymphadenopathy Aller/Immun Denies wheezing Physical Exam Vital Signs: Last Vital Signs Pulse 75 06/08/23 13:40 BP 128/78 06/08/23 13:40 BMI result Body Mass Index 25.9 Const General: cooperative, comfortable and well developed Nutritional Appearance: well nourished Orientation/consciousness: patient oriented x3 Eyes Sclerae: sclerae normal EOM: EOMs intact bilaterally Neck Neck: Yes normal visual inspection Resp Effort & Inspection: normal respiratory effort, no cough, no respiratory distress and no stridor Cardio Jugular venous distension: no JVD GI Inspection: Yes normal to inspection Palpation (GI): Soft to palpation, Tenderness to palpation present (GI) (Right groin, no palpable hernia with Valsalva), no guarding and not rigid Abdomen image: 1. Area of tenderness Skin General skin exam: dry skin Rashes: no rashes Neuro General: patient oriented x3 and no focal motor deficits Extrem General: Yes full ROM and Yes no clubbing, cyanosis or edema Psych Appearance: grossly normal Assessment & Plan Assessment & Plan (1) H/O inguinal hernia repair: Onset Date: 07/15/20 Code(s): Z98.890 - Other specified postprocedural states; Z87.19 - Personal history of other diseases of the digestive system (2) Right inguinal pain: Code(s): R10.31 - Right lower quadrant pain Plan 47-year-old male patient returning with six-month history of abdominal pain in the right groin after lifting groceries 4 flights of stairs. The pain has persisted without any improvement. Examination reveals no definite palpable hernia in the right groin. The incision is well healed. This may indicate a muscle strain from the heavy lifting. I recommended a CT of the pelvis to better evaluate the hernia repair for possible occult recurrence. He expressed understanding will return following completion of the CT to review the results. Orders: Orders CT pelvis wo IV con Today R10.31 - Right lower quadrant pain, Z87.19 - Personal history of other diseases of the digestive system, Z98.890 - Other specified postprocedural states Coding Level of Care Code Est Pt Level 3 (19553) Diagnoses H/O inguinal hernia repair Z98.890; Z87.19 Right inguinal pain R10.31
[2023-06-08 13:40] VITALS: BP 128/78; PULSE 75; BMI 25.9
== END 2023-06-08 14:03 | disposition home or self-care (01) ==
PROVIDERS: PCP Internal Medicine Geriatric Medicine; Visit Provider Surgery
DX: R10.31 Right lower quadrant pain (principal)
CPT/HCPCS: 99213

== ENCOUNTER → 2023-06-08 13:08 | Outpatient (BNVA) | payer MEDICAID, SELFPAY | PROVIDERS: PCP Internal Medicine Geriatric Medicine; Visit Provider Surgery | DX: R10.31 Right lower quadrant pain (principal) | CPT/HCPCS: 99212 ==

== ENCOUNTER 2023-06-14 14:15 | Outpatient (REF) | payer MEDICAID, SELFPAY ==
--- NOTE | ~2023-06-14 | CT_ITS ---
EXAMINATION: CT PELVIS WITHOUT CONTRAST CLINICAL INFORMATION: Status post right inguinal hernia repair with persistent pain in the right groin. COMPARISON: None available. TECHNIQUE: Helical scanning was performed with submillimeter collimation through the pelvis. Sagittal and coronal multiplanar 2-D reconstructions were obtained. This CT examination was performed using dose optimization techniques as appropriate, variously including the following: *Automated exposure control *Adjustment of mA and/or kV according to patient size (this includes techniques or standardized protocols for targeted exams where dose is matched to indication/reason for exam; i.e. extremities or head) *Use of iterative reconstruction technique DLP: 506 mGy-cm FINDINGS: PELVIS: There is no pelvic mass. Visualized bowel loops unremarkable. The appendix is unremarkable. No evidence of diverticulitis. Scattered diverticuli seen through the colon. No evidence of pelvic or fluid collection or lymphadenopathy. Urinary bladder is partially distended, unremarkable Inguinal area reveals no evidence of hernias bilaterally. There is single superficial right inguinal lymph node measured 1.4 x 2.1 cm. Surgical vishal seen in the left inguinal region, most likely sequela of left inguinal hernia. There are no surgical vishal in the right groin OSSEOUS STRUCTURES: There are cystic spaces in ischial bones and right ilium most likely due to hemangiomas. CT/CT pelvis wo IV con IMPRESSION: No evidence of inguinal hernia. Single superficial right inguinal lymph node.
== END 2023-06-14 14:16 | disposition home or self-care (01) ==
LOC: HO.CT 14:15
PROVIDERS: PCP Internal Medicine Geriatric Medicine; Visit Provider Surgery
DX: R10.31 Right lower quadrant pain (principal); Z98.890 Other specified postprocedural states; Z87.19 Personal history of other diseases of the digestive system
CPT/HCPCS: 72192

== ENCOUNTER 2023-06-22 10:29 | Outpatient (AMB) | payer MEDICAID, SELFPAY ==
--- NOTE | 2023-06-22 10:35 | A.OFFVIS_ITS ---
Intake Vital Signs 06/22/23 10:40 Height 6 ft 1 in Weight 200 lb 4 oz BMI 26.4 BP 126/75 Blood Pressure Location Lt brachial Position Sitting Pulse 77 Intake Visit Reasons: (R) inguinal pain, discuss CT scan results Intake Note: Patient is seen in office for CT scan results, following right inguinal pain. Pt c/o: continued pain in the area, specially when driving, here for results CT:06/14/23 Retail Sales Representative Required: Yes Retail Sales Representative Language: Presser Machine Name: Hanh CHACON Information Interpreted: non-clinical & clinical Cup Trimming Machine Operator: Cup Trimming Machine Operator Present Accompanied by: Self / Same As Patient Allergies No Known Allergies Allergy (Verified 06/22/23 10:41) Medication List - Last Reconciled 06/22/23 by Curt Ruiz MD albuterol sulfate 90 mcg/actuation (Ventolin HFA) 2 puffs inhalation Q4-6H PRN amlodipine 10 mg PO QAM blood pressure test kit-large As directed cephalexin 500 mg PO Q8H 10 days hydroxyzine pamoate 25 mg PO TID PRN loratadine 10 mg PO DAILY PRN morphine ER 15 mg PO Q12H PRN tcuyrixi-wff-UI-lycopen-lutein 0.4 mg-300 mcg- 250 mcg (Cerovite Senior) 1 tab PO QAM nabumetone 500 mg PO BID naloxone 4 mg/actuation intranasal omeprazole 20 mg PO BID oxycodone 1 tab PO Q12H prazosin 2 mg PO BEDTIME sertraline 100 mg PO DAILY trazodone 50 mg PO BEDTIME HPI HPI Comments History of Present Illness Details Patient returns for follow-up examination and review of his recent pelvic CT. He continues to report some discomfort in the right groin. CT of the pelvis does reveal lymphadenopathy in the right groin but no evidence of a recurrent hernia. A copy of the report was provided to the patient. [facility] Medical History GERD (gastroesophageal reflux disease) Depression Asthma Surgical History H/O inguinal hernia repair (07/15/20) History of back surgery History of neck surgery Social History Alcohol intake: never service: No Current occupational status: unemployed Review of Systems Const Denies chills, Denies fever(s), Denies headache(s) and Denies poor appetite ENT Denies dizziness and Denies headache(s) Card Denies chest pain, Denies rapid heart rate, Denies palpitations and Denies slow heart rate Resp Denies chest congestion, Denies cough, Denies pain on inspiration and Denies wheezing GI Reports abdominal pain, Denies bloating, Denies change in stool character, Denies constipation, Denies diarrhea, Denies nausea, Denies vomiting and Denies hematemesis Musc Denies back pain, Denies arthralgias, Denies joint swelling and Denies numbness Skin/Breast Denies change in pigmentation, Denies erythema and Denies rash Neuro Denies dizziness, Denies headache(s) and Denies numbness Psych Denies anxiety and Denies depression Endo Denies palpitations Saul/Lymph Denies easy bleeding, Denies easy bruising and Denies lymphadenopathy Aller/Immun Denies wheezing Physical Exam Vital Signs: Last Vital Signs Pulse 77 06/22/23 10:40 BP 126/75 06/22/23 10:40 BMI result Body Mass Index 26.4 Const General: cooperative, comfortable and well developed Nutritional Appearance: well nourished Orientation/consciousness: patient oriented x3 Eyes Sclerae: sclerae normal EOM: EOMs intact bilaterally Neck Neck: Yes normal visual inspection Resp Effort & Inspection: normal respiratory effort, no cough, no respiratory distress and no stridor Cardio Jugular venous distension: no JVD GI Other: Continue tenderness in the right groin with no changes with Valsalva maneuvers. Faintly enlarged lymph node palpable lateral to the incision. Findings suggestive of lymphadenitis. Inspection: Yes normal to inspection Palpation (GI): Soft to palpation, Tenderness to palpation present (GI) (Right groin, no palpable hernia with Valsalva), no guarding and not rigid Skin General skin exam: dry skin Rashes: no rashes Neuro General: patient oriented x3 and no focal motor deficits Extrem General: Yes full ROM and Yes no clubbing, cyanosis or edema Psych Appearance: grossly normal Assessment & Plan Assessment & Plan (1) Lymphadenitis: Code(s): I88.9 - Nonspecific lymphadenitis, unspecified Plan 39-year-old male patient found to have an enlarged lymph node in the right groin which is tender to palpation. Enlarged lymph node was noted on his recent pelvic CT. No recurrent hernias identified. It is possible this enlarged lymph node is the source of the patient's increased inguinal pain. Therefore recommended a course of oral antibiotics. He should return as needed. Medications: New cephalexin 500 mg PO Q8H 30 caps 0RF 10 days Coding Level of Care Code Est Pt Level 3 (28316) Diagnoses Lymphadenitis I88.9
[2023-06-22 10:40] VITALS: BP 126/75; PULSE 77; BMI 26.4
== END 2023-06-22 10:47 | disposition home or self-care (01) ==
PROVIDERS: PCP Internal Medicine Geriatric Medicine; Referring Provider Internal Medicine Geriatric Medicine; Visit Provider Surgery
DX: I88.9 Nonspecific lymphadenitis, unspecified (principal)
CPT/HCPCS: 99213

== ENCOUNTER → 2023-06-22 10:29 | Outpatient (BNVA) | payer MEDICAID, SELFPAY | PROVIDERS: PCP Internal Medicine Geriatric Medicine; Visit Provider Surgery | DX: I88.9 Nonspecific lymphadenitis, unspecified (principal) | CPT/HCPCS: 99212 ==

== ENCOUNTER 2023-08-01 13:46 | Outpatient (AMB) | payer MEDICAID, SELFPAY ==
--- NOTE | 2023-08-01 13:46 | MHC.OFFVIS ---
Vital Signs 08/01/23 13:47 Height 6 ft 1 in Intake Visit Reasons: Rt lower abd pain Intake Note: This patient presents for an assessment for right lower abdominal pain. Pt c/o; RLQ pain, reports contractions , reports. Counter Server Required: Yes Counter Server Language: Dietary Services Manager Name: Renetta Information Interpreted: non-clinical & clinical Accompanied by: Self / Same As Patient Allergies No Known Allergies Allergy (Verified 08/01/23 14:00) Medication List - Last Reconciled 08/01/23 by Curt Ruiz MD albuterol sulfate 90 mcg/actuation (Ventolin HFA) 2 puffs inhalation Q4-6H PRN amlodipine 10 mg PO QAM blood pressure test kit-large As directed cephalexin 500 mg PO Q8H 10 days hydroxyzine pamoate 25 mg PO TID PRN loratadine 10 mg PO DAILY PRN morphine ER 15 mg PO Q12H PRN olwavpxp-nmn-QL-lycopen-lutein 0.4 mg-300 mcg- 250 mcg (Cerovite Senior) 1 tab PO QAM nabumetone 500 mg PO BID naloxone 4 mg/actuation intranasal omeprazole 20 mg PO BID oxycodone 1 tab PO Q12H prazosin 2 mg PO BEDTIME sertraline 100 mg PO DAILY trazodone 50 mg PO BEDTIME HPI Comments Details: Patient returns for follow-up assessment regarding his right groin pain. A recent CT revealed right inguinal lymphadenopathy and he was subsequently started on antibiotics. He reports no significant change in his symptoms since taking the antibiotics. He continues to have pain and contractions in the groin with occasional pain extending into the testicle. The pain seems to increase with standing and walking. He is unable to lift at this time. Denies any palpable lump in the groin. The pain has persisted since February 2023. [facility] Medical History GERD (gastroesophageal reflux disease) Depression Asthma Surgical History H/O inguinal hernia repair (07/15/20) History of back surgery History of neck surgery Social History Alcohol intake: never service: No Current occupational status: unemployed Review of Systems Const Denies chills, Denies fever(s), Denies headache(s) and Denies poor appetite ENT Denies dizziness and Denies headache(s) Card Denies chest pain, Denies rapid heart rate, Denies palpitations and Denies slow heart rate Resp Denies chest congestion, Denies cough, Denies pain on inspiration and Denies wheezing GI Reports abdominal pain, Denies bloating, Denies change in stool character, Denies constipation, Denies diarrhea, Denies nausea, Denies vomiting and Denies hematemesis Musc Denies back pain, Denies arthralgias, Denies joint swelling and Denies numbness Skin/Breast Denies change in pigmentation, Denies erythema and Denies rash Neuro Denies dizziness, Denies headache(s) and Denies numbness Psych Denies anxiety and Denies depression Endo Denies palpitations Saul/Lymph Denies easy bleeding, Denies easy bruising and Denies lymphadenopathy Aller/Immun Denies wheezing Physical Exam Const General: cooperative, comfortable and well developed Nutritional Appearance: well nourished Orientation/consciousness: patient oriented x3 Eyes Sclerae: sclerae normal EOM: EOMs intact bilaterally Neck Neck: Yes normal visual inspection Resp Effort & Inspection: normal respiratory effort, no cough, no respiratory distress and no stridor Cardio Jugular venous distension: no JVD GI Other: Continue tenderness in the right groin with no changes with Valsalva maneuvers. No palpable lymph nodes are appreciated. Inspection: Yes normal to inspection Palpation (GI): Soft to palpation, Tenderness to palpation present (GI) (Right groin, no palpable hernia with Valsalva), no guarding and not rigid Skin General skin exam: dry skin Rashes: no rashes Neuro General: patient oriented x3 and no focal motor deficits Extrem General: Yes full ROM and Yes no clubbing, cyanosis or edema Psych Appearance: grossly normal Assessment & Plan Assessment & Plan (1) Right inguinal pain: Code(s): R10.31 - Right lower quadrant pain Category: Medical Plan 47-year-old male patient with a previous history of a right inguinal hernia repaired in 2020 now with a 5 month history of pain in the right groin. Workup was negative for recurrent hernia. Examination today revealed no evidence of recurrent hernia. I have suggested evaluation by pain management. Patient expressed understanding and agrees with the plan. Orders: Referrals Pain Management Referral R10.31 - Right lower quadrant pain Coding Level of Care Code Est Pt Level 3 (89267) Diagnoses Right inguinal pain R10.31
== END 2023-08-01 14:07 | disposition home or self-care (01) ==
PROVIDERS: PCP Internal Medicine Geriatric Medicine; Referring Provider Internal Medicine Geriatric Medicine; Visit Provider Surgery
DX: R10.31 Right lower quadrant pain (principal)
CPT/HCPCS: 99213

== ENCOUNTER → 2023-08-01 13:46 | Outpatient (BNVA) | payer MEDICAID, SELFPAY | PROVIDERS: PCP Internal Medicine Geriatric Medicine; Visit Provider Surgery | DX: R10.31 Right lower quadrant pain (principal) | CPT/HCPCS: 99212 ==

== ENCOUNTER 2023-08-09 10:01 | Outpatient (AMB) | payer MEDICAID, SELFPAY ==
[2023-08-09 10:33] VITALS: BP 133/79; PULSE 83; RESP 14; O2SAT 97; BMI 26.5
--- NOTE | 2023-08-09 10:33 | MHC.OFFVIS ---
Vital Signs 08/09/23 10:33 Height 6 ft 1 in Weight 201 lb BMI 26.5 BP 133/79 Blood Pressure Location Lt brachial Position Sitting Respiration 14 Pulse 83 Pulse Source Pulse Oximeter Pulse Oximetry (%) 97 Oxygen Delivery Method Room Air Intake Visit Reasons: Right lower quadrant pain Machine Hoop Maker Helper Required: Yes Machine Hoop Maker Helper Name: Carlie #[id number] Allergies No Known Allergies Allergy (Verified 08/09/23 10:34) Medication List - Last Reconciled 08/09/23 by Krista Silva LPN albuterol sulfate 90 mcg/actuation (Ventolin HFA) 2 puffs inhalation Q4-6H PRN amlodipine 10 mg PO QAM blood pressure test kit-large As directed hydroxyzine pamoate 25 mg PO TID PRN loratadine 10 mg PO DAILY PRN morphine ER 15 mg PO Q12H PRN xzsqbsll-qvw-SR-lycopen-lutein 0.4 mg-300 mcg- 250 mcg (Cerovite Senior) 1 tab PO QAM nabumetone 500 mg PO BID naloxone 4 mg/actuation intranasal omeprazole 20 mg PO BID oxycodone 1 tab PO Q12H prazosin 2 mg PO BEDTIME sertraline 100 mg PO DAILY trazodone 50 mg PO BEDTIME HPI HPI Right lower quadrant pain: Details: A jailer/training officer was present during the visit 47-year-old male presents today for evaluation of right lower quadrant pain. Patient states he was sent here by Dr. Ruiz. He recently underwent a right inguinal hernia surgery. He rates the pain as severe. He describes the pain as a burning sensation that is sensitive to touch. He has not trialed any neuropathic medications as yet and has been primarily managing his pain with opioids. [facility] Medical History GERD (gastroesophageal reflux disease) Depression Asthma Surgical History H/O inguinal hernia repair (07/15/20) History of back surgery History of neck surgery Social History Alcohol intake: never service: No Current occupational status: unemployed Review of Systems Const All systems reviewed & are unremarkable except as noted in HPI and below Physical Exam Vital Signs: Last Vital Signs Pulse 83 08/09/23 10:33 Resp 14 08/09/23 10:33 BP 133/79 08/09/23 10:33 Pulse Ox 97 08/09/23 10:33 Oxygen Delivery Method Room Air 08/09/23 10:33 BMI result Body Mass Index 26.5 General: Appears afebrile. Alert and oriented. Mood and affect appropriate. Follows and participates in conversation appropriately. Respiratory effort is unlabored. Able to transition from sit to stand unassisted. There is a well-healed right inguinal hernia incision. There is a sensitivity and allodynia to touch surrounding the inguinal ligament. 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 He has not tried neuropathic medications yet, so I will send him a script for gabapentin to be titrated up gradually up to 300 mg three times a day. I cautioned him not to combine with oxycodone and morphine at the same time to prevent sedation related side effects. If he does not improve with the trial of gabapentin, we will consider right ilioinguinal and genitofemoral nerve blocks under ultrasound-guidance in 2 months from now. If his pain is refractory to these interventions, we may consider neuromodulation in the future. Today's visit was conducted with the help of a jailer/training officer. Scribed for Dr. Parks by Anna Oliveira, medical record technician, on 05/10/2023. I, Dr. Parks, have personally reviewed and agree with the information entered by the scribe. Medications: New gabapentin 300 mg PO TID 90 caps 0RF Coding Level of Care Code New Pt Level 3 (72248) Diagnoses Ilioinguinal neuralgia G57.90
== END 2023-08-09 10:56 | disposition home or self-care (01) ==
PROVIDERS: PCP Internal Medicine Geriatric Medicine; Referring Provider Surgery; Visit Provider Internal Medicine
DX: G57.90 Unspecified mononeuropathy of unspecified lower limb (principal)
CPT/HCPCS: 99203

== ENCOUNTER → 2023-08-09 10:01 | Outpatient (BNVA) | payer MEDICAID, SELFPAY | PROVIDERS: PCP Internal Medicine Geriatric Medicine; Referring Provider Surgery; Visit Provider Internal Medicine | DX: G57.90 Unspecified mononeuropathy of unspecified lower limb (principal) | CPT/HCPCS: 99202 ==

== ENCOUNTER 2024-01-30 10:13 | Emergency (ER) | payer MEDICAID, SELFPAY | END 2024-01-30 12:06 | disposition left against medical advice (07) | PROVIDERS: Emergency Provider Emergency Medicine; PCP Internal Medicine Geriatric Medicine | DX: M79.673 Pain in unspecified foot (principal) ==

== ENCOUNTER 2024-01-30 13:11 | Outpatient (REF) | payer MEDICAID, SELFPAY ==
--- NOTE | ~2024-01-30 | XR_ITS ---
EXAMINATION: XR ANKLE, RIGHT XR FOOT, RIGHT CLINICAL INFORMATION: Right ankle and foot pain. Medial pain and plantar foot pain. Twisting injury. Evaluate for fracture. COMPARISON: Right ankle and foot radiographs dated 10/24/2017. TECHNIQUE: AP, oblique, and lateral views of the right ankle and foot. FINDINGS: RIGHT ANKLE: No acute fracture or dislocation. The ankle mortise is maintained. No joint space narrowing or marginal osteophytes. No talar osteochondral lesion. No abnormal soft tissue calcification. Trace ankle joint effusion. RIGHT FOOT: No acute fracture or dislocation. Normal tarsal alignment. No joint space narrowing or marginal osteophytes. No osseous erosion. No abnormal soft tissue calcification. XR/XR foot RT min 3V IMPRESSION: RIGHT ANKLE: No acute osseous abnormality. Trace ankle joint effusion. RIGHT FOOT: No acute osseous abnormality. Electronically signed by: Julius Orellana MD 01/31/2024 09:14 AM [facility] Workstation: [id number]
--- NOTE | ~2024-01-30 | XR_ITS ---
EXAMINATION: XR ANKLE, RIGHT XR FOOT, RIGHT CLINICAL INFORMATION: Right ankle and foot pain. Medial pain and plantar foot pain. Twisting injury. Evaluate for fracture. COMPARISON: Right ankle and foot radiographs dated 10/24/2017. TECHNIQUE: AP, oblique, and lateral views of the right ankle and foot. FINDINGS: RIGHT ANKLE: No acute fracture or dislocation. The ankle mortise is maintained. No joint space narrowing or marginal osteophytes. No talar osteochondral lesion. No abnormal soft tissue calcification. Trace ankle joint effusion. RIGHT FOOT: No acute fracture or dislocation. Normal tarsal alignment. No joint space narrowing or marginal osteophytes. No osseous erosion. No abnormal soft tissue calcification. XR/XR ankle RT min 3V IMPRESSION: RIGHT ANKLE: No acute osseous abnormality. Trace ankle joint effusion. RIGHT FOOT: No acute osseous abnormality. Electronically signed by: Julius Orellana MD 01/31/2024 09:14 AM [facility] Workstation: [id number]
== END 2024-01-30 13:12 | disposition home or self-care (01) ==
LOC: HO.HHCX 13:11
PROVIDERS: Visit Provider Student in an Organized Health Care Education/Training Program
DX: M25.571 Pain in right ankle and joints of right foot (principal); M79.671 Pain in right foot
CPT/HCPCS: 73610; 73630

== ENCOUNTER 2024-07-22 15:02 | Outpatient (REF) | payer MEDICAID, SELFPAY ==
--- NOTE | ~2024-07-22 | XR_ITS ---
EXAMINATION: XR ANKLE, RIGHT CLINICAL INFORMATION: swelling at lateral malleolus COMPARISON: January 30, 2024. TECHNIQUE: AP, lateral, and mortise views of the right ankle. FINDINGS: No cortical disruption or malalignment. No lytic or blastic lesions. Subtle calcifications in the anterior tibiotalar bursa. XR/XR ankle RT min 3V IMPRESSION: No acute fracture or dislocation. Electronically signed by: Nikita Moore MD 07/22/2024 03:22 PM EDT
--- OUTSIDE RECORDS SUMMARY | 2024-07-22 17:55 | XMS_ITS | Encounter Summary ---
Author Organization [employer] Address [address] [facility] [address] [place] [address] Care Team Providers Care Precision Lens Polisher Name Role Phone Name, Abdon GRAJEDA Primary Care Provider [phone] Reason for Visit * Reason Comments Med Refill Encounter Details Date Type Department Care Team ([facility] st Contact Info) Description 07/22/2024 Refill [facility] [address] [place], [place] [id number] Name, MD Abdon [address] [place], [place] [id number] Asthma, unspecified asthma severity, unspecified whether complicated, unspecified whether persistent Social History Tobacco Use Types Packs/Day Years Used Date Smoking Tobacco: Former Cigarettes Smokeless Tobacco: Never Depression Answer Date Recorded Patient Health Questionnaire-9 Score 6 12/12/2023 Patient Health Questionnaire-9 Score 6 12/12/2023 Last PHQ-9: Questionnaire Data Not on file 0 12/12/2023 Housing Stability Answer Date Recorded What is your housing situation today? I have verona schumacher 07/20/[address] you li ve. Do you have problems with any of the following? Pests such as bugs, ants, or mice;Inadequate heat 07/20/2023 Food Insecurity Answer Date Recorded Within the past 12 months, y ou worried that your food would run out before you got money to buy more: Never True 07/20/2023 Within the past 12 months,th e food you bought just didn't last and you didn't have enough money to get more: Never True Transportation Answer Date Recorded In the past 12 months, has l ack of transportation kept you from medical appts, meetings, work or from getting things needed for daily living? No 05/24/2023 Utilities Answer Date Recorded In the past 12 months, has t he electric, gas, oil or water company threatened to shut off services in your home? No 05/24/2023 Depression Answer Date Recorded Patient Health Questionnaire-2 Score 2 12/12/2023 Sex and Gender Information Value Date Recorded Sex Assigned at Male 01/24/2022 10:33 AM EDT Legal Sex Male 10:33 AM EDT Gender Identity Male 01/24/2022 10:33 AM EDT Sexual Orientation Straight 01/24/2022 10 :33 AM EDT documented as of this encounter Plan of Treatment Upcoming Encounters Date Type Department Care Team (Late st Contact Info) Description 07/29/2024 3:30 PM EDT Office Visit [address] [address] NameAbdon MD [address] [place] [id number] 09/23/2024 10:30 AM EDT Clinical Support [address] [id number] Ciarra De Leon, KATHERINE documented as of this encounter Goals Goal Patient Goal Type Associated Problems Recent Progress Patient-Stated? Author Blood Pressure < 140/90 Blood Pressure 147/92(2024 2:45 PM EDT) No Puia, Joanne, PharmD Record your blood pressure periodically Blood Pressure No Puia, Joanne, PharmD documented as of this encounter Visit Diagnoses Diagnosis Asthma, unspecified asthma severity, unspecified whether complicated, unspecified whether persistent documented in this encounter Additional Health Concerns Assessment Noted Time PHQ-9 Depression Total Score: 6 12/12/19 24 9:48 AM EDT documented as of this encounter Care Teams Precision Lens Polisher Relationship Specialty Start Date End Date Name, MD Abdon [address] [place] [id number] PCP - General Family Medicine 07/27/17 documented as of this encounter
--- OUTSIDE RECORDS SUMMARY | 2024-07-22 17:55 | XMS_ITS | Encounter Summary ---
Author Organization [employer] Address [address] [facility] [address] [place] [address] Care Team Providers Care Swimming Pool Servicer Name Role Phone Name, Abdon GRAJEDA Primary Care Provider [phone] Joanne Jaime PharmD Unavailable [phone] Nicolette Robledo RN Unavailable [phone] Blaine Day Unavailable Unavailable Reason for Visit * Reason Comments Med Refill Encounter Details Date Type Department Care Team (Late st Contact Info) Description 02/13/2023 Refill [facility] [address] [place], [place] [phone] Name, MD Abdon [address] [place] [address] Chronic pain syndrome Social History Tobacco Use Types Packs/Day Years Used Date Smoking Tobacco: Former Cigarettes Smokeless Tobacco: Never Depression Answer Date Recorded Patient Health Questionnaire-9 Score 20 11/16/2022 Housing Stability Answer Date Recorded What is your housing situation today? I have verona schumacher 01/19/[address] you li ve. Do you have problems with any of the following? None of the above 01/19/2023 Food Insecurity Answer Date Recorded Within the past 12 months, y ou worried that your food would run out before you got money to buy more: Never True 01/19/2023 Within the past 12 months,th e food you bought just didn't last and you didn't have enough money to get more: Never True Transportation Answer Date Recorded In the past 12 months, has l ack of transportation kept you from medical appts, meetings, work or from getting things needed for daily living? No 01/19/2023 Utilities Answer Date Recorded In the past 12 months, has t he electric, gas, oil or water company threatened to shut off services in your home? No 01/19/2023 Depression Answer Date Recorded Patient Health Questionnaire-2 Score 6 11/16/2022 Sex and Gender Information Value Date Recorded Sex Assigned at Male 01/24/2022 10:33 AM EDT Legal Sex Male 10:33 AM EDT Gender Identity Male 01/24/2022 10:33 AM EDT Sexual Orientation Straight 01/24/2022 10 :33 AM EDT documented as of this encounter Plan of Treatment Upcoming Encounters Date Type Department Care Team (Late st Contact Info) Description 07/29/2024 3:30 PM EDT Office Visit [address] [address] NameAbdon MD [address] [place] [phone] 09/23/2024 10:30 AM EDT Clinical Support [address] [address] Ciarra De Leon, KATHERINE documented as of this encounter Goals Goal Patient Goal Type Associated Problems Recent Progress Patient-Stated? Author Blood Pressure < 140/90 Blood Pressure 147/92(2024 2:45 PM EDT) No Puia, Joanne, PharmD Record your blood pressure periodically Blood Pressure No Puia, Joanne, PharmD documented as of this encounter Visit Diagnoses Diagnosis Chronic pain syndrome documented in this encounter Additional Health Concerns Assessment Noted Time PHQ-9 Depression Total Score: 20 023 9:16 AM EDT documented as of this encounter Care Teams Swimming Pool Servicer Relationship Specialty Start Date End Date Abdon Lopes MD [address] [place] [id number] PCP - General Family Medicine 07/27/17 Puia, Joanne, PharmD [address] [place] [id number] Pharmacist Internal Medicine 07/27/21 03/10/24 Nicolette Robledo RN [address] [place] [phone] Armature And Rotor WinderEducation Consultant Medicine 08/25/23 10/22/23 Blaine Day Community Health Worker 08/29/23 10/22/23 documented as of this encounter
--- OUTSIDE RECORDS SUMMARY | 2024-07-22 17:55 | XMS_ITS | Encounter Summary ---
Author Organization [employer] Address [address] [facility] 7t [place] [address] Care Team Providers Care Showroom Consultant Name Role Phone Name, Abdon GRAJEDA Primary Care Provider [phone] Joanne Jaime PharmD Unavailable [phone] Nicolette Robledo RN Unavailable [phone] Blaine Day Unavailable Unavailable Reason for Visit * Reason Comments Med Refill Encounter Details Date Type Department Care Team (Late st Contact Info) Description 09/04/2023 Refill [facility] [address] [place] [address] Name, MD Abdon [address] [place] [address] Chronic pain syndrome; Pain in right hand; Other specified soft tissue disorders; Heartburn Social History Tobacco Use Types Packs/Day Years Used Date Smoking Tobacco: Former Cigarettes Smokeless Tobacco: Never Depression Answer Date Recorded Patient Health Questionnaire-9 Score 19 05/24/2023 Patient Health Questionnaire-9 Score 19 05/24/2023 Last PHQ-9: Questionnaire Data Not on file 0 05/24/2023 Housing Stability Answer Date Recorded What is [...] Date Recorded Patient Health Questionnaire-2 Score 6 05/24/2023 Sex and Gender Information Value Date Recorded Sex Assigned at Male 01/24/2022 10:33 AM EDT Legal Sex Male 10:33 AM EDT Gender Identity Male 01/24/2022 10:33 AM EDT Sexual Orientation Straight 01/24/2022 10 :33 AM EDT documented as of this encounter Plan of Treatment Upcoming Encounters Date Type Department Care Team (Late st Contact Info) Description 07/29/2024 3:30 PM EDT Office Visit [address] [address] Abdon Lopes MD [address] [place] [address] 09/23/2024 10:30 AM EDT Clinical Support [address] [address] Ciarra De Leon, RN documented as of this encounter Goals Goal Patient Goal Type Associated Problems Recent Progress Patient-Stated? Author Blood Pressure < 140/90 Blood Pressure 147/92(2024 2:45 PM EDT) No Puia, Joanne, PharmD Record your blood pressure periodically Blood Pressure No Puia, Joanne, PharmD documented as of this encounter Visit Diagnoses Diagnosis Chronic pain syndrome Pain in right hand Other specified soft tissue disorders Heartburn documented in this encounter Additional Health Concerns Assessment Noted Time PHQ-9 Depression Total Score: 19 024 9:12 AM EST documented as of this encounter Care Teams Showroom Consultant Relationship Specialty Start Date End Date Abdon Lopes MD [address] [place] [address] PCP - General Family Medicine 07/27/17 Joanne Jaime, LaraD [address] [place] [address] Pharmacist Internal Medicine 07/27/21 03/10/24 Nicolette Robledo RN [address] [place] [address] Motor Vehicle AssemblerMechanical Service Representative Medicine 08/25/23 10/22/23 Blaine Day Community Health Worker 08/29/23 10/22/23 documented as of this encounter
--- OUTSIDE RECORDS SUMMARY | 2024-07-22 17:55 | XMS_ITS | Encounter Summary ---
Author Organization [employer] Address 75 [facility] 7t [place] [address] Care Team Providers Care Flight Crew Scheduler Name Role Phone Name, Abdon RGAJEDA Primary Care Provider [phone] Reason for Visit * Reason Comments Med Refill Encounter Details Date Type Department Care Team ([facility] st Contact Info) Description 07/19/2024 Refill [facility] MED[facility]INE 230 [place], [place] [phone] Name, MD Abdon 230 [place], [place] [phone] Social History Tobacco Use Types Packs/Day Years [...] Description 07/29/2024 3:30 PM EDT Office Visit [address] [address] NameAbdon MD [address] [place] [address] 09/23/2024 10:30 AM EDT Clinical Support [address] [address] Ciarra De Leon, RN documented as of this encounter Goals Goal Patient Goal Type Associated Problems Recent Progress Patient-Stated? Author Blood Pressure < 140/90 Blood Pressure 147/92(2024 2:45 PM EDT) No Puia, Joanne, PharmD Record your blood pressure periodically Blood Pressure No Ernst Jaimeyssa, PharmD documented as of this encounter Visit Diagnoses Not on filedocumented in this encounter Additional Health Concerns Assessment Noted Time PHQ-9 Depression Total Score: 6 12/12/19 24 9:48 AM EDT documented as of this encounter Care Teams Flight Crew Scheduler Relationship Specialty Start Date End Date Abdon Lopes MD [address] [place] [phone] PCP - General Family Medicine 07/27/17 documented as of this encounter
--- OUTSIDE RECORDS SUMMARY | 2024-07-22 17:55 | XMS_ITS | Encounter Summary ---
Author Organization [employer] Address 75 [facility] 7t [place] [address] Care Team Providers Care Document Image Technician Name Role Phone Name, Abdon GRAJEDA Primary Care Provider [phone] Joanne Jaime PharmD Unavailable [phone] Nicolette Robledo RN Unavailable [phone] Blaine Day Unavailable Unavailable Reason for Visit * Reason Onset Date Comments Handicap Placard 09/27/2023 Encounter Details Date Type Department Care Team (Late st Contact Info) Description 09/27/2023 Telephone [facility] MEDICINE 230 [place], [place] [phone] Name, MD Abdon [address] [place] [address] Handicap Placard Social History Tobacco Use Types Packs/Day Years Used Date Smoking Tobacco: Former Cigarettes Smokeless Tobacco: Never Depression Answer Date Recorded Patient Health Questionnaire-9 Score 19 05/24/2023 Patient Health Questionnaire-9 Score 19 05/24/2023 Last PHQ-9: Questionnaire Data Not on file 0 05/24/2023 Housing Stability Answer Date Recorded What is your housing situation today? I have verona endy 07/20/[address] you li [...] AM EDT documented as of this encounter Miscellaneous Notes * Telephone Encounter - Manny Paul RN - 09/29/2023 8:43 AM EDT T/C to pt. For below message, cannot see any discussion regarding handicap card with PCP, call goesdirect on voice mail, mail box is full not able to LVM. * Telephone Encounter - Chandu Robert - 09/27/2023 3:51 PM EDT Tc from patient calling to request the status of the handicap placard states has been waiting and had not received a response documented in this encounter Plan of Treatment Upcoming Encounters Date Type Department Care Team (Late st Contact Info) Description 07/29/2024 3:30 PM EDT Office Visit [facility] [address] [place] [address] Name, MD Abdon [address] [place] [address] 09/23/2024 10:30 AM EDT Clinical Support [address] [address] Ciarra De Leno, RN documented as of this encounter Goals Goal Patient Goal Type Associated Problems Recent Progress Patient-Stated? Author Blood Pressure < 140/90 Blood Pressure 147/92(2024 2:45 PM EDT) No Joanne Jaime PharmFan Record your blood pressure periodically Blood Pressure No Joanne Jaime PharmD documented as of this encounter Visit Diagnoses Not on filedocumented in this encounter Additional Health Concerns Assessment Noted Time PHQ-9 Depression Total Score: 19 024 9:12 AM EST documented as of this encounter Care Teams Document Image Technician Relationship Specialty Start Date End Date Name, MD Abdon [address] [place] [address] PCP - General Family Medicine 07/27/17 Joanne Jaime PharmD [address] [place] [address] Pharmacist Internal Medicine 07/27/21 03/10/24 Nicolette Robledo RN [address] [place] [address] Plant GuardNuclear Medicine Chief Technologist Medicine 08/25/23 10/22/23 Blaine Day Community Health Worker 08/29/23 10/22/23 documented as of this encounter
--- OUTSIDE RECORDS SUMMARY | 2024-07-22 17:55 | XMS_ITS | Encounter Summary ---
Author Organization [employer] Address 75 [facility] 7t [place] [address] Care Team Providers Care Jukebox Checker Name Role Phone Name, Abdon GRAJEDA Primary Care Provider [phone] Reason for Visit * Reason Comments Ankle Pain Encounter Details Date Type Department Care Team (Late st Contact Info) Description 07/22/2024 3:20 PM EDT Office Visit [facility] 230 [place], [place] [phone] Judy Powers MD [address] [place], [place] [phone] Acute right ankle pain (Primary Dx); Schizoaffective disorder, unspecified type (CMS/HCC) Social History Tobacco Use Types Packs/Day Years [...] AM EDT documented as of this encounter Last Filed Vital Signs Vital Sign Reading Time Taken Comments Blood Pressure 147/92 07/22/2024 2:45 PM EDT Pulse 80 07/22/2024 2:45 PM EDT Temperature 36.9 ??C (98.5 ??F) 07/22/2024 2:45 PM ED T Respiratory Rate 19 07/22/2024 2:45 PM EDT Oxygen Saturation 98% 07/22/2024 2:45 PM EDT Inhaled Oxygen Concentration - - Weight 87 kg (191 lb 12.8 oz) 07/22/2024 2:45 PM EDT Height - - Body Mass Index 24.63 03/12/2024 11:23 AM EST documented in this encounter Progress Notes * Judy Powers MD - 07/22/2024 3:20 PM EDT SUBJECTIVE: Chandu Wylie is a 48 y.o. year old male who presents for acute visit. Denies recent illness, ER visit, or hospitalization. Acute Concerns: 01/2024 TECHNIQUE: AP, oblique, and lateral views of the right ankle and foot. FINDINGS: RIGHT ANKLE: No acute fracture or dislocation. The ankle mortise is maintained. No joint space narrowing or marginal osteophytes. No talar osteochondral lesion. No abnormal soft tissue calcification. Trace ankle joint effusion. RIGHT FOOT: No acute fracture or dislocation. Normal tarsal alignment. No joint space narrowing or marginal osteophytes. No osseous erosion. No abnormal soft tissue calcification. XR/XR ankle RT min 3V IMPRESSION: RIGHT ANKLE: No acute osseous abnormality. Trace ankle joint effusion. RIGHT FOOT: No acute osseous abnormality. Patient Active Problem List Diagnosis Asthma Chronic back pain Chronic pain syndrome Moderate episode of recurrent major depressive disorder (CMS/HCC) Hemangioma Hypertensive disorder Schizoaffective disorder (CMS/HCC) H/O Spinal surgery Past Surgical History: Procedure Laterality Date CERVICAL SPINE SURGERY HERNIA REPAIR Right 07/06/2020 No family history on file. Social History Social History Narrative Not on file Review of Systems OBJECTIVE: Vitals: 07/22/24 1445 BP: (!) 147/92 BP Location: Left arm Patient Position: Sitting BP Cuff Size: Adult Pulse: 80 Resp: 19 Temp: 98.5 ??F (36.9 ??C) TempSrc: Temporal SpO2: 98% Weight: 191 lb 12.8 oz (87 kg) Physical Exam ASSESSMENT/PLAN Problem List Items Addressed This Visit None Follow Up: per PCP recall months or sooner prn No Known Allergies Current Outpatient Medications: acetaminophen (Tylenol 8 Hour) 650 MG ER tablet, TAKE 1 TABLET BY MOUTH EVERY 8 HOURS NEEDED FORPAIN mild. do not crush, chew, or split, Disp: 40 tablet, Rfl: 1 amLODIPine (Norvasc) 10 MG tablet, Take 1 tablet (10 mg) by mouth Once per day., Disp: 90 tablet, Rfl: 3 Blood Pressure Monitor kit, Use to check blood pressure daily, as directed, Disp: 1 kit, Rfl: 0 Diclofenac Sodium 1 % gel, Apply 2 g topically if needed in the morning, at noon, in the evening, and at bedtime (pain)., Disp: 150 g, Rfl: 3 gabapentin (Neurontin) 300 MG capsule, Take 300 mg by mouth 3 times daily., Disp: , Rfl: hydrOXYzine pamoate (Vistaril) 25 MG capsule, Take 1 capsule by mouth three times daily as needed for severe anxiety, Disp: , Rfl: lidocaine (Lidoderm) 5 % patch, APPLY 1 PATCH TOPICALLY ONCE DAILY NEEDED FOR PAIN leve.rem DIRECTED, Disp: 30 patch, Rfl: 0 loratadine (Claritin) 10 MG tablet, Take 1 tablet (10 mg) by mouth if needed each day for allergies., Disp: 90 tablet, Rfl: 3 morphine CR (MS Contin) 15 MG 12 hr tablet, Take 1 tablet (15 mg) by mouth every 12 (twelve) hours for 28 days. Do not crush, chew, or split. Do not start before July 11, 2024., Disp: 56 tablet, Rfl: 0 Multiple Vitamins-Minerals (Cerovite Senior) tablet, TAKE 1 TABLET BY MOUTH ONCE DAILY IN THE MORNING, Disp: 90 tablet, Rfl: 1 nabumetone (Relafen) 500 MG tablet, TAKE 1 TABLET BY MOUTH two (2) times a day NEEDED FOR PAIN knee, Disp: 30 tablet, Rfl: 0 naloxone (Narcan) 4 mg/0.1 mL nasal spray, Administer 1 spray (4 mg) into affected nostril(s) if needed for opioid reversal. Fowler 0.1 milliliter by intranasal route in 1 nostril may repeat dose every 2-3 minutes as needed alternating nostrils with each dose, Disp: 2 each, Rfl: 2 omeprazole (PriLOSEC) [address] capsule, Do not crush or chew., Disp: 180 capsule, Rfl: 3 oxyCODONE (Roxicodone) 10 MG immediate release tablet, Take 1 tablet (10 mg) by mouth every 12 (twelve) hours if needed for severe pain for up to 28 days. Do not start before July 11, 2024., Disp: 56 tablet, Rfl: 0 prazosin (Minipress) 2 MG capsule, take 1 capsule by oral route every day at bedtime, Disp: , Rfl: sertraline (Zoloft) 100 MG tablet, Take 1 tablet by mouth 1 (one) time each day., Disp: , Rfl: traZODone (Desyrel) 50 MG tablet, take 1 tablet by oral route daily at bedtime, Disp: , Rfl: Ventolin HFA 108 (90 Base) MCG/ACT inhaler, INHALE 2 PUFF BY MOUTH EVERY 4 TO 6 HOURS NEEDED, Disp: 18 g, Rfl: 1 zolpidem (Ambien) 5 MG tablet, TAKE 1 TABLET BY MOUTH ONCE DAILY NEEDED FOR insomnia, Disp: , Rfl: Moroccan Translation: Provided by [facility] staff member OSWALDO Foster documented in this encounter Plan of Treatment Upcoming Encounters Date Type Department Care Team (Late st Contact Info) Description 07/29/2024 3:30 PM EDT Office Visit [facility] [place] [address] Name, MD Abdon [place] [address] 09/23/2024 10:30 AM EDT Clinical Support [facility] [place] [address] Ciarra De Leon RN documented as of this encounter Goals Goal Patient Goal Type Associated Problems Recent Progress Patient-Stated? Author Blood Pressure < 140/90 Blood Pressure 147/92(2024 2:45 PM EDT) No PuJoanne thompson, PharmD Record your blood pressure periodically Blood Pressure No Joanne Jaime PharmD documented as of this encounter Procedures Procedure Name Priority Date/Time Associated Diagnosis Comments XR ANKLE 3+ VIEWS RIGHT Routine 07/22/2024 3:02 PM EDT Acute right ankle pain documented in this encounter Results * XR Ankle 3+ Views Right (07/22/2024 3:02 PM EDT) Anatomical Region Laterality Modality Lower Extremities, Ankle Right Radiogr aphic Imaging 07/22/2024 3:02 PM EDT Narrative 07/22/2024 3:25 PM EDT ?[facility] ?[address] ?[place] [address] ?XRay Report ? Signed ? Patient: Amber Dejan,Chandu Edward ? MR#: [id number] ? : 1975 ?Acct:[id number] ? Age/Sex: 48 / M ?ADM Date: 04/28/25 ? Loc: HO.HHCX ? Attending Dr: Judy Powers MD ? Ordering Physician: Judy Powers ?? Date of Service: 07/22/24 ?? Procedure(s): XR ankle RT min 3V ?? Accession Number(s): [id number] ? cc: Judy Powers ? EXAMINATION: ?? XR ANKLE, RIGHT ? CLINICAL INFORMATION: ?? swelling at lateral malleolus ? COMPARISON: ?? January 30, 2024. ? TECHNIQUE: ?? AP, lateral, and mortise views of the right ankle. ? FINDINGS: ?? No cortical disruption or malalignment. No lytic or blastic lesions. ?? Subtle calcifications in the anterior tibiotalar bursa. ? XR/XR ankle RT min 3V ?? IMPRESSION: ?? No acute fracture or dislocation. ? Electronically signed by: ??Nikita Moore MD ??07/22/2024 03:22 PM ?? EDT RP ? Dictated By: ?Nikita Linder MD ? Signed By: ?<Electronically signed by Nikita Valenzuela MD in OV> ? 07/22/24 1522 ? DD/ 1502 ? TD/TT: 07/22/24 1510 ? Oracle Data Warehouse Developer: ? Procedure Note Felicitascot, Image - 07/22/[address] [address] XRay Report Signed Patient: Chandu Virk MR#: [id number] : 1975Acct:[id number] Age/Sex: 48 / MADM Date: 07/22/24 Loc: HO.HHCX Attending Dr: Judy Powers MD Ordering Physician: Judy Powers Date of Service: 07/22/24 Procedure(s): XR ankle RT min 3V Accession Number(s): [id number] cc: Judy oPwers EXAMINATION: XR ANKLE, RIGHT CLINICAL INFORMATION: swelling at lateral malleolus COMPARISON: January 30, 2024. TECHNIQUE: AP, lateral, and mortise views of the right ankle. FINDINGS: No cortical disruption or malalignment. No lytic or blastic lesions. Subtle calcifications in the anterior tibiotalar bursa. XR/XR ankle RT min 3V IMPRESSION: No acute fracture or dislocation. Electronically signed by: Nikita Moore MD 07/22/2024 03:22 PM EDT Dictated By: Nikita Linder MD Signed By: <Electronically signed by Nikita Valenzuela MDin OV> 07/22/24 1522 DD/ 1502 TD/TT: 07/22/24 1510 [employer] Data Warehouse Developer: Judy Powers MD IMG XR PROCEDURES Final Result documented in this encounter Visit Diagnoses Diagnosis Acute right ankle pain- Primary Schizoaffective disorder, unspecified type (CMS/HCC) documented in this encounter Additional Health Concerns Assessment Noted Time PHQ-9 Depression Total Score: 6 12/12/19 24 9:48 AM EDT documented as of this encounter Care Teams Jukebox Checker Relationship Specialty Start Date End Date Name, MD Abdon [address] [place] [address] PCP - General Family Medicine 07/27/17 documented as of this encounter
--- OUTSIDE RECORDS SUMMARY | 2024-07-22 17:55 | XMS_ITS | Encounter Summary ---
Author Organization [employer] Address [address] [facility] 7t [place] [address] Care Team Providers Care License Registration Examiner Name Role Phone Name, Abdon GRAJEDA Primary Care Provider [phone] Joanne Jaime PharmD Unavailable [phone] Nicolette Robledo RN Unavailable [phone] Blaine Day Unavailable Unavailable Reason for Visit * Reason Onset Date Comments [facility] Application 04/25/2022 I call ed the pt regarding an application for the [facility]. He stated that he would like for the same information that was listed on the 09/17/2021 [facility] form, to be listed on the new form. I informed him that if he wants sensitive information to be listed, he needs to initial the back of the release of information. He stated that he gives verbal authorization for it to be listed, and will initial the release when he comes to the [facility] Dept to pick up worker the form. Encounter Details Date Type Department Care Team (Late st Contact Info) Description 04/25/2022 Telephone [facility] MEDICINE [address] [place] [address] Name, MD Abdon [address] [place] [address] [facility] [employer] Application (I called the pt regarding an application for the [facility]. He stated that he would like for the same information that was listed on the 09/17/2021 [facility] form, to be listed on the new form. I informed him that if he wants sensitive information to be listed, he needs to initial the back of the release of information. He stated that he gives verbal authorization for it to be listed, and will initial the release when he comes to the [facility] Dept to pick up worker the form.) Social History Tobacco Use Types Packs/Day Years Used Date Smoking Tobacco: Former Cigarettes Smokeless Tobacco: Never Sex and Gender Information Value Date Recorded Sex Assigned at Male 01/24/2022 10:33 AM EDT Legal Sex Male 10:33 AM EDT Gender Identity Male 01/24/2022 10:33 AM EDT Sexual Orientation Straight 01/24/2022 10 :33 AM EDT COVID-19 Exposure Response Date Recorded In the last 10 days, have usman u been in contact with someone who was confirmed or suspected to have Coronavirus/COVID-19? No / Unsure 04/13/2022 3:37 PM EST documented as of this encounter Plan of Treatment Upcoming Encounters Date Type Department Care Team (Late st Contact Info) Description 07/29/2024 3:30 PM EDT Office Visit [address] [address] Name, MD Abdon [address] [place] [address] 09/23/2024 10:30 AM EDT Clinical Support [address] [address] Ciarra De Leon, KATHERINE documented as of this encounter Visit Diagnoses Not on filedocumented in this encounter Care Teams License Registration Examiner Relationship Specialty Start Date End Date Name, MD Abdon [address] [place] [address] PCP - General Family Medicine 07/27/17 Joanne Jaime PharmD [address] [place] [address] Pharmacist Internal Medicine 07/27/21 03/10/24 Nicolette Robledo, KATHERINE [address] [place] [address] School PsychometristBonding Equipment Operator Medicine 08/25/23 10/22/23 Blaine Day Community Health Worker 08/29/23 10/22/23 documented as of this encounter
--- OUTSIDE RECORDS SUMMARY | 2024-07-22 17:55 | XMS_ITS | Encounter Summary ---
Author Organization [employer] Address 75 [facility] 7t [place] [address] Care Team Providers Care Alcoholism Worker Name Role Phone Name, Abdon GRAJEDA Primary Care Provider [phone] Joanne Jaime PharmD Unavailable [phone] Nicolette Robledo RN Unavailable [phone] Blaine Day Unavailable Unavailable Reason for Visit * Reason Comments Med Refill Encounter Details Date Type Department Care Team (Late st Contact Info) Description 02/23/2023 Refill [facility] MEDICINE [address] [place], [place] [phone] Name, MD Abdon [address] [place] [address] Pain in right hand; Other specified soft tissue disorders Social History Tobacco Use Types Packs/Day Years [...] Description 07/29/2024 3:30 PM EDT Office Visit [address] [address] Name, MD Abdon [address] [place] [address] 09/23/2024 10:30 AM EDT Clinical Support [address] [address] Ciarra De Leon, KATHERINE documented as of this encounter Goals Goal Patient Goal Type Associated Problems Recent Progress Patient-Stated? Author Blood Pressure < 140/90 Blood Pressure 147/92(2024 2:45 PM EDT) No Puia, Joanne, PharmD Record your blood pressure periodically Blood Pressure No Puia, Joanne, PharmD documented as of this encounter Visit Diagnoses Diagnosis Pain in right hand Other specified soft tissue disorders documented in this encounter Additional Health Concerns Assessment Noted Time PHQ-9 Depression Total Score: 20 023 9:16 AM EDT documented as of this encounter Care Teams Alcoholism Worker Relationship Specialty Start Date End Date NameAbdon MD [address] [place] [address] PCP - General Family Medicine 07/27/17 Puia, Joanne, PharmD [address] [place] [address] Pharmacist Internal Medicine 07/27/21 03/10/24 Nicolette Robledo RN [address] [place] [address] Semiconductor Development TechnicianRn Clinical Medicine 08/25/23 10/22/23 Blaine Day Community Health Worker 08/29/23 10/22/23 documented as of this encounter
--- OUTSIDE RECORDS SUMMARY | 2024-07-22 17:55 | XMS_ITS | Encounter Summary ---
Author Organization [employer] Address 75 [facility] 7t [place] [address] Care Team Providers Care Sales Product Specialist Name Role Phone Name, Abdon GRAJEDA Primary Care Provider [phone] Joanne Jaime PharmD Unavailable [phone] Nicolette Robledo RN Unavailable [phone] Blaine Day Unavailable Unavailable Reason for Visit * Reason Comments Med Refill Encounter Details Date Type Department Care Team (Late st Contact Info) Description 09/29/2023 Refill [facility]INE [address] [place] [address] Anna Ferrera, JACI [address] [place] [address] Chronic pain syndrome Social History Tobacco Use [...] Description 07/29/2024 3:30 PM EDT Office Visit [address] [address] Name, MD Abdon [address] [place] [address] 09/23/2024 10:30 AM EDT Clinical Support [address] [address] Ciarra De Leon, KATHERINE documented as of [...] documented as of this encounter Care Teams Sales Product Specialist Relationship Specialty Start Date End Date Abdon Lopes MD [address] [place] [address] PCP - General Family Medicine 07/27/17 Puia, Joanne, PharmD [address] [place] [address] Pharmacist Internal Medicine 07/27/21 03/10/24 Nicolette Robledo RN [address] [place] [address] Patient Services ClerkWoodworking Machine Offbearer Medicine 08/25/23 10/22/23 Blaine Day Community Health Worker 08/29/23 10/22/23 documented as of this encounter
--- OUTSIDE RECORDS SUMMARY | 2024-07-22 17:55 | XMS_ITS | Encounter Summary ---
Author Organization [employer] Address [address] [facility] 7t [place] [address] Care Team Providers Care Mitten Sewer Name Role Phone Name, Abdon GRAJEDA Primary Care Provider [phone] Joanne Jaime PharmD Unavailable [phone] Nicolette Robledo RN Unavailable [phone] Blaine Day Unavailable Unavailable Reason for Visit * Reason Comments Med Refill Encounter Details Date Type Department Care Team (Late st Contact Info) Description 09/04/2023 Refill [facility] [address] [place], [place] [phone] Name, MD Abdon [address] [place] [address] Pain in right hand; Other specified soft tissue disorders; Chronic pain syndrome Social History Tobacco Use [...] 07/29/2024 3:30 PM EDT Office Visit [address] [address] NameAbdon MD [address] [place] [address] 09/23/2024 10:30 AM EDT Clinical Support [address] [address] Ciarra De Leon, RN documented as of this encounter Goals Goal Patient Goal Type Associated Problems Recent Progress Patient-Stated? Author Blood Pressure < 140/90 Blood Pressure 147/92(2024 2:45 PM EDT) No Puia, Joanne, PharmD Record your blood pressure periodically Blood Pressure No Puia, Joanne, PharmD documented as of this encounter Visit Diagnoses Diagnosis Pain in right hand Other specified soft tissue disorders Chronic pain syndrome documented in this encounter Additional Health Concerns Assessment Noted Time PHQ-9 Depression Total Score: 19 024 9:12 AM EST documented as of this encounter Care Teams Mitten Sewer Relationship Specialty Start Date End Date Abdon Lopes MD [address] [place] [address] PCP - General Family Medicine 07/27/17 Puia, Joanne, PharmD [address] [place] [address] Pharmacist Internal Medicine 07/27/21 03/10/24 Nicolette Robledo RN [address] [place] [address] Scientific ProgrammerMaterials Engineer Medicine 08/25/23 10/22/23 Blaine Day Community Health Worker 08/29/23 10/22/23 documented as of this encounter
--- OUTSIDE RECORDS SUMMARY | 2024-07-22 17:55 | XMS_ITS | Encounter Summary ---
Author Organization [employer] Address [address] [facility] 7t [place] [address] Care Team Providers Care Lockstitch Zipper Setter Name Role Phone Name, Abdon GRAJEDA Primary Care Provider [phone] Joanne Jaime PharmD Unavailable [phone] Nicolette Robledo RN Unavailable [phone] Blaine Day Unavailable Unavailable Reason for Visit * Reason Onset Date Comments Med Refill 02/22/2023 Encounter Details Date Type Department Care Team (Late st Contact Info) Description 02/22/2023 Telephone [facility] [address] [place] [address] Name, MD Abdon [address] [place] [address] Med Refill Social History Tobacco Use Types Packs/Day Years [...] encounter Miscellaneous Notes * Telephone Encounter - Samy Camarena - 02/22/2023 9:52 AM EST Tc from pt requesting med refill for albuterol 108 (90 Base) MCG/ACT inhaler. Pt stated that the Ventolin HFA 108 (90 Base) MCG/ACT inhaler causes nausea. documented in this encounter Plan of Treatment Upcoming Encounters Date Type Department Care Team (Late st Contact Info) Description 07/29/2024 3:30 PM EDT Office Visit [address] [address] Abdon Lopes MD [address] [place] [address] 09/23/2024 10:30 AM EDT Clinical Support [address] [address] Ciarra De Leon, RN documented as of [...] documented as of this encounter Care Teams Lockstitch Zipper Setter Relationship Specialty Start Date End Date Abdon Lopes MD [address] [place] [address] PCP - General Family Medicine 07/27/17 Joanne Jaime PharmD [address] [place] [address] Pharmacist Internal Medicine 07/27/21 03/10/24 Nicolette Robledo RN [address] [place] [phone] Domestic CleanerNeuro Psych Sales Specialist Medicine 08/25/23 10/22/23 Blaine Day Community Health Worker 08/29/23 10/22/23 documented as of this encounter
--- OUTSIDE RECORDS SUMMARY | 2024-07-22 17:55 | XMS_ITS | Clinical Summary ---
Author Organization [employer] Address [address] [facility] 7t [place] [address] Care Team Providers Care Enrollment Nurse Name Role Phone Name, Abdon GRAJEDA Primary Care Provider [phone] Allergies No known active allergies Medications * This document contains information received from the source organization and may not represent a complete record from that organization. traZODone (Desyrel) 50 MG tablet take 1 tablet by oral route daily at bedtime Active prazosin (Minipress) 2 MG capsule take 1 capsule by oral route every day at bedtime Active hydrOXYzine pamoate (Vistaril) 25 MG capsule Take 1 capsule by mouth three times daily as needed for severe anxiety 04/08/19 23 Active sertraline (Zoloft) 100 MG tablet Take 1 tablet by mouth 1 (one) time each day. 04/08/19 23 Active Blood Pressure Monitor kitIndications :Hypertension, unspecified type Use to check blood pressure daily, as directed 1 kit 11/09/19 23 Active naloxone (Narcan) 4 mg/0.1 mL nasal sprayIndicatio ns:Chronic pain syndrome Administer 1 spray (4 mg) into affected nostril(s) if needed for opioid reversal. Michie 0.1 milliliter by intranasal route in 1 nostril may repeat dose every 2-3 minutes as needed alternating nostrils with each dose 2 each 2 02/28/20 23 Active gabapentin (Neurontin) 300 MG capsule Take 300 mg by mouth 3 times daily. 08/09/19 24 Active loratadine (Claritin) 10 MG tabletIndicati ons:Seasonal allergic rhinitis, unspecified trigger Take 1 tablet (10 mg) by mouth if needed each day for allergies. 90 tablet 3 08/30/19 24 Active omeprazole (PriLOSEC) [address] capsuleIndicat ions:Heartburn Do not crush or chew. 180 capsule 3 09/05/19 24 Active Multiple Vitamins-Hillside als (Cerovite Senior) tablet TAKE 1 TABLET BY MOUTH ONCE DAILY IN THE MORNING 90 tablet 1 11/29/19 24 Active zolpidem (Ambien) 5 MG tablet TAKE 1 TABLET BY MOUTH ONCE DAILY NEEDED FOR insomnia 01/24/20 Active Diclofenac Sodium 1 % gel Apply 2 g topically if needed in the morning, at noon, in the evening, and at bedtime (pain). 150 g 3 01/31/20 24 Active amLODIPine (Norvasc) 10 MG tabletIndicati ons:Hypertensi on, unspecified type Take 1 tablet (10 mg) by mouth Once per day. 90 tablet 3 04/19/19 25 Active nabumetone (Relafen) 500 MG tabletIndicati ons:Pain in right hand,Other specified soft tissue disorders TAKE 1 TABLET BY MOUTH two (2) times a day NEEDED FOR PAIN knee 30 tablet 07/11/19 Active lidocaine (Lidoderm) 5 % patch APPLY 1 PATCH TOPICALLY ONCE DAILY NEEDED FOR PAIN leve.rem DIRECTED 30 patch 07/11/19 Active oxyCODONE (Roxicodone) 10 MG immediate release tabletIndicati ons:Chronic pain syndrome Take 1 tablet (10 mg) by mouth every 12 (twelve) hours if needed for severe pain for up to 28 days. Do not start before July 11, 2024. 56 tablet 07/12/19 025 Active morphine CR (MS Contin) 15 MG 12 hr tabletIndicati ons:Chronic pain syndrome Take 1 tablet (15 mg) by mouth every 12 (twelve) hours for 28 days. Do not crush, chew, or split. Do not start before July 11, 2024. 56 tablet 07/12/19 025 Active acetaminophen (Tylenol 8 Hour) 650 MG ER tablet TAKE 1 TABLET BY MOUTH EVERY 8 HOURS NEEDED FOR PAIN mild. do not crush, chew, or split 40 tablet 1 07/20/19 25 Active Ventolin HFA 108 (90 Base) MCG/ACT inhalerIndicat ions:Asthma, unspecified asthma severity, unspecified whether complicated, unspecified whether persistent INHALE 2 PUFF BY MOUTH EVERY 4 TO 6 HOURS NEEDED 18 g 1 07/23/19 25 Active camphor-mentho l (Sarna) lotionIndicati ons:Acute right ankle pain Apply topically if needed for irritation (to ankle). 222 mL 07/23/19 25 026 Active predniSONE (Deltasone) 20 MG tablet Take 1 tablet (20 mg) by mouth Once per day for 5 days. 5 tablet 07/23/19 25 025 Active Ventolin HFA 108 (90 Base) MCG/ACT inhalerIndicat ions:Asthma, unspecified asthma severity, unspecified whether complicated, unspecified whether persistent INHALE 2 PUFF BY MOUTH EVERY 4 TO 6 HOURS NEEDED 18 g 1 04/29/19 25 025 Discontinued acetaminophen (Tylenol 8 Hour) 650 MG ER tablet TAKE 1 TABLET BY MOUTH EVERY 8 HOURS NEEDED FOR PAIN mild. do not crush, chew, or split 40 tablet 1 05/24/19 025 Discontinued oxyCODONE (Roxicodone) 10 MG immediate release tabletIndicati ons:Chronic pain syndrome Take 1 tablet (10 mg) by mouth every 12 (twelve) hours if needed for severe pain for up to 28 days. Do not start before June 13, 2024. 56 tablet 06/14/19 025 Discontinued(R eorder (will not trigger notification to Pharmacy)) morphine CR (MS Contin) 15 MG 12 hr tabletIndicati ons:Chronic pain syndrome Take 1 tablet (15 mg) by mouth every 12 (twelve) hours for 28 days. Do not crush, chew, or split. Do not start before June 13, 2024. 56 tablet 06/14/19 025 Discontinued(R eorder (will not trigger notification to Pharmacy)) lidocaine (Lidoderm) 5 % patch APPLY 1 PATCH TOPICALLY ONCE DAILY NEEDED FOR PAIN mild. remove patch after 12 hours DIRECTED 30 patch 06/14/19 025 Discontinued nabumetone (Relafen) 500 MG tabletIndicati ons:Pain in right hand,Other specified soft tissue disorders TAKE 1 TABLET BY MOUTH two (2) times a day NEEDED FOR PAIN knee 30 tablet 06/14/19 25 025 Discontinued predniSONE (Deltasone) 20 MG tablet Take 1 tablet (20 mg) by mouth Once per day for 5 days. 5 tablet 07/23/19 025 Discontinued Active Problems Problem Noted Date Diagnosed Date Acute right ankle pain 07/22/2024 Hypertensive disorder 03/01/2022 H/O Spinal surgery 03/01/2022 Chronic back pain 09/18/2017 Hemangioma 09/18/2017 Schizoaffective disorder 09/18/2017 Asthma 07/27/2017 Chronic pain syndrome 07/27/2017 Moderate episode of recurrent major depressive d isorder 07/27/2017 Assessment & Plan (11/08/2022 4:20 PM EDT): Assessment: Patient with history of depression (depressed mood, decreased interest in engaging in activities he used to enjoy, difficulty sleeping, decreased energy, poor appetite, increased fidgeting, difficulty concentrating) and recently he reports that he is crying daily and increased anger and irritability. Symptoms have been exacerbated over the past month due to reduce use of his hands due to pain and decrease in independence for ADL's. Symptoms occur in the context of bio-psychosocial stressors of chronic pain and falling out of touch with [facility] Nella Corona. Patient will benefit from continued OP therapy, exploring coping mechanisms, and reengaging with care management. At this time Chandu Wylie meets criteria for Visit Diagnoses: Problem List Items Addressed This Visit Other Moderate episode of recurrent major depressive disorder (CMS/HCC) Patient ready to address current needs Yes Strengths- Chandu is open to suggestions and in the action stage of change. PLAN: 1. Follow up with [facility]: Recommended for follow-up: 11/16/22 with PCP 2. Patient goal is to increase coping mechanisms and decrease depressive symptoms 3. Behavioral Recommendations a. 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 PCP med management possible increase c. OP therapy Encounters Date Type Department Care Team Description 07/22/2024 3:20 PM EDT Office Visit [facility] [address] [place] [phone] Judy Powers MD Acute right ankle pain (Primary Dx); Schizoaffective disorder, unspecified type (CMS/HCC) 07/22/2024 Refill [facility] [address] [place] [address] Abdon Lopes MD Asthma, unspecified asthma severity, unspecified whether complicated, unspecified whether persistent 07/19/2024 [facility]ill [facility] [address] [facility] [place] [address] Abdon Lopes MD 07/09/2024 Refill [facility] [address] [place] [address] Abdon Lopes MD Pain in right hand; Other specified soft tissue disorders 07/05/2024 Refill [facility] [address] [place] [address] Abdon Lopes MD Chronic pain syndrome 06/13/2024 Refill [facility] [address] [place] [address] Abdon Lopes MD Pain in right hand; Other specified soft tissue disorders 06/07/2024 [facility]ill [facility] [address] [facility] [place] [address] Abdon Lopes MD Chronic pain syndrome 06/07/2024 Population Health Risk Score [facility] ([facility]) Department [address] [place] [phone] Provider, Population Health Generic 05/24/2024 Refill [facility] [address] [place] [address] Abdon Lopes MD 05/16/2024 [facility] [place] [phone] Yohana Cline DO 05/09/2024 10:00 AM EST Clinical Support [facility] [address] [facility] [place] [phone] Ciarra De Leon RN Chronic pain syndrome (Primary Dx) 05/09/2024 [facility]ill [facility] [address] [facility] [place] [address] Ciarra De Leon RN Chronic pain syndrome 05/09/2024 Travel 05/09/2024 Telephone [facility] [address] [facility] [place] [address] Ciarra De Leon RN Recommend APPLICATION PACKAGER Tier 2 04/29/2024 Refill [facility] [address] [facility] [place] [address] Abdon Lopes MD Asthma, unspecified asthma severity, unspecified whether complicated, unspecified whether persistent from Last 3 Months Immunizations Name Administration Dates Next Due HepB-CpG 04/26/2023,03/23/2023 Influenza injectable quadriv alent preservative free 01/26/2023,02/15/2022,12/14/2020,2018 Influenza, IIV3, injectable 02/15/2022 Moderna Covid-19 Vaccine 12+ 03/17/2021,08/28/19 21,07/30/2020 Pfizer Covid-19 Vaccine 12+ Bivalent 02/15/2022 Pneumococcal Conjugate PCV 13 02/27/2017 Tdap 05/24/2023,06/04/2012 Social History Tobacco Use Types Packs/Day Years Used Date Smoking Tobacco: Former Cigarettes Smokeless Tobacco: Never Tobacco Cessation:Counseling Given: Not Answered Depression Answer Date Recorded Patient Health Questionnaire-9 [...] Orientation Straight 01/24/2022 10 :33 AM EDT Last Filed Vital Signs Vital Sign Reading [...] 12.8 oz) 07/22/2024 2:45 PM EDT Height 188 cm (6' 2 ) 03/12/2024 11:23 AM EST Body Mass Index 24.63 03/12/2024 11:23 AM EST Plan of Treatment Upcoming Encounters Date Type Department Care Team (Late st Contact Info) Description 07/29/2024 3:30 PM EDT Office Visit [facility] [address] [place] [address] Name, MD Abdon [address] [place] [address] 09/23/2024 10:30 AM EDT Clinical Support [address] [address] Ciarra De Leon, RN Health Maintenance Due Date Last Done Comments CT Colonography 1974 Colonoscopy 1974 Colorectal Cancer Screening 1974 FIT DNA/Cologuard 1974 FIT 1974 FOBT 1974 Sigmoidoscopy 1974 Alcohol/Substance Use Screening 1986 Family Planning (PISQ) 1989 Pneumococcal Vaccine: Pediatrics (0 to 5 Years) and At-Risk Patients (6 to 49) Years) (2 of 2 - PPSV23) 04/24/2017 02/27/2017 COVID-19 Vaccine ( season) 2023 02/15/2022, 03/17/2021, 08/27/2020, Additional history exists Influenza Vaccine (#1) 2023 3, 02/15/2022, 02/15/2022, Additional history exists SDOH Screening 07/19/2024 07/20/2023 Zoster Vaccines (1 of 2) 2024 Depression Screening 12/11/2024 12/12/2023, 12/12/19 24 Tobacco Screening 07/22/2025 07/22/2024 Lipid Panel 02/02/2028 02/01/2023, 09/25, 12/11/2020 DTaP/Tdap/Td Vaccines (3 - Td or Tdap) 05/24/2033 05/24/2023, 06/04/2012 RSV Patients and Patients Aged 60 years or older (1 - 1-dose 75+ series) 2049 HIV Screening Completed 02/01/2023, 10/13/2021 Hepatitis C Screening Completed 02/01/2023, 022 Hepatitis B Vaccines Completed 04/26/2023, 03/23/20 23 HIB Vaccines Aged Out No longer eligi ble based on patient's age to complete this topic HPV Vaccines Aged Out No longer eligi ble based on patient's age to complete this topic Hepatitis A Vaccines Aged Out No long er eligible based on patient's age to complete this topic IPV Vaccines Aged Out No longer eligi ble based on patient's age to complete this topic Meningococcal Vaccine Aged Out No saman alex eligible based on patient's age to complete this topic RSV under 20 months Aged Out No longe r eligible based on patient's age to complete this topic Rotavirus Vaccines Aged Out No longer eligible based on patient's age to complete this topic Goals Goal Patient Goal Type Associated Problems Recent Progress Patient-Stated? Author Blood Pressure < 140/90 Blood Pressure 147/92(2024 2:45 PM EDT) No PuiaErnstJoanne, PharmD Record your blood pressure periodically Blood Pressure No Puia, Joanne, PharmD Procedures Procedure Name Priority Date/Time Associated Diagnosis Comments XR ANKLE 3+ VIEWS RIGHT Routine 07/22/2024 3:02 PM EDT Acute right ankle pain POCT BESSIE-14 URINE DRUG SCREEN Routine 05/09/2024 11:04 AM EST Chronic pain syndrome HEPATITIS C ANTIBODY Routine 02/01/2023 8:57 AM EST Screen for STD (sexually transmitted disease) HIV 1/2 ANTIGEN/ANTIBODY, FOURTH GENERATION W/RFL Routine 02/01/2023 8:57 AM EST Screen for STD (sexually transmitted disease) LIPID PANEL, STANDARD Routine 02/01/2023 8:57 AM EST Screening for cholesterol level from Last 3 Months or Most Recently Relevant to Health Maintenance Results * XR Ankle 3+ Views Right (07/22/2024 3:02 PM EDT) Anatomical Region Laterality Modality Lower Extremities, Ankle Right Radiogr aphic Imaging 07/22/2024 3:02 PM EDT Narrative 07/22/2024 3:25 PM EDT ?[facility] ?[address] ?[place] [address] ?XRay Report ? Signed ? Patient: Chandu Virk ? MR#: [id number] ? : 1975 ?Acct:[id number] ? Age/Sex: 48 / M ?ADM Date: 07/22/24 ? Loc: HO.HHCX ? Attending Dr: Judy Powers MD ? Ordering Physician: Judy Powers ?? Date of Service: 07/22/24 ?? Procedure(s): XR ankle RT min 3V ?? Accession Number(s): [id number] ? cc: Judy Powers ? EXAMINATION: ?? [...] DD/ 1502 ? TD/TT: 07/22/24 1510 ? Mechanical Unit Repairer: ? Procedure Note Donrussellter, Image - 07/22/[address] [address] XRay Report Signed Patient: Chandu Virk MR#: [id number] : 1975Acct:[id number] Age/Sex: 48 / MADM Date: 07/22/24 Loc: HO.HHCX Attending Dr: Judy Powers MD Ordering Physician: Judy Powers Date of Service: 07/22/24 Procedure(s): XR ankle RT min 3V Accession Number(s): [id number] cc: Judy Powers EXAMINATION: XR ANKLE, RIGHT CLINICAL INFORMATION: swelling [...] 07/22/24 1522 DD/ 1502 TD/TT: 07/22/24 1510 Mechanical Unit Repairer: Judy Powers MD IMG XR PROCEDURES Final Result * POCT BESSIE-14 Urine Drug Screen (05/09/2024 11:04 AM EST) THC Positive Opiate Screen, Urine Positive Oxycodone Screen, Urine Positive Urine Urine specimen obtained by clean catch procedure / Unknown 05/09/2024 11:04 AM EST Narrative Ciarra De Leon RN - 05/09/2024 11:04 AM EST UTOX cup Lot#[id number] Exp. 11/13/25 Internal Pass Control us Abdon Lopes MD POINT OF CARE TEST ENTER/EDIT OR DERABLES Final Result * Hepatitis C Ab (02/01/2023 8:57 AM EST) Hepatitis C Antibody Nonreactive Nonreactive [facility] Comment:Antibodies to HCV no t detected; does not exclude early acuteHCV infection. Blood Venous blood specimen / Unknown 02/01/2023 8:57 AM EST 02/01/2023 11:08 AM EST us Abdon Lopes MD LAB BLOOD ORDERABLES Final Resul t [facility] [address] [place] [phone] * HIV-1/2 Antigen and Antibodies, Fourth Generation, with Reflexes (02/01/2023 8:57 AM EST) Pathologist [facility] HIV AB/AG Nonreactive Nonreactive [facility] Comment:HIV-1 p24 Ag and/or HIV-1/HIV-2 Ab not detected.A test result that is nonreactive does not exclude thepossibility of exposure to or infection with HIV-1 and/orHIV-2. Nonreactive results in this assay for individualswith prior exposure to HIV-1 and/or HIV-2 may be due toantigen and antibody levels that are below the limit ofdetection of this assay.The [employer] HIV Ag/Ab Combo assay result andsupplemental assay results should be interpreted inconjunction with the patient's clinical presentation,history and other laboratory results. If the results areinconsistent with clinical evidence, additional testing issuggested to confirm the result. Blood Venous blood specimen / Unknown 02/01/2023 8:57 AM EST 02/01/2023 11:08 AM EST Abdon Name LAB BLOOD ORDERABLES Final Resul t Performing Organization Address [facility] Co de Phone Number [facility] [address] [place] [phone] * Lipid Panel, Standard (02/01/2023 8:57 AM EST) Triglycerides 39 <150 mg/dL [facility] Comment:Desirable Triglyceri de: less than 150 mg/dLBorderline High Triglyceride 150-199 mg/dLHigh Triglyceride: 200-499 mg/dLVery High Triglyceride: greater than or equal to 5OO mg/dL Cholesterol 166 <200 mg/dL [facility] Comment:Desirable Cholestero l: less than 200 mg/dLBorderline High Cholesterol: 200-239 mg/dLHigh Cholesterol: greater than 239 mg/dL LDL Cholesterol Calculated 96 <100 mg/dL [facility] Comment:Desirable LDL: less than 100 mg/dLNear Optimal/Above Optimal LDL: 110- 129 mg/dLBorderline High LDL: 130-159 mg/dLHigh LDL: 160-189 mg/dLVery High LDL: greater than or equal to 190 mg/dL HDL Cholesterol 63 >40 mg/dL [facility] Comment:Desirable HDL: great er than 40 mg/dL Note: This HDL assay may give artificially low results in patients with liver disease. Blood Venous blood specimen / Unknown 02/01/2023 8:57 AM EST 02/01/2023 11:08 AM EST Abdon Lopes MD LAB BLOOD ORDERABLES Final Resul t Performing Organization Address City/[facility]/ZIP Co de Phone Number [facility] [address] [place] [address] [phone] from Last 3 Months or Most Recently Relevant to Health Maintenance Insurance [facility] C3 Care Teams Enrollment Nurse Relationship Specialty Start Date End Date Name, MD Abdon [address] [place] [phone] PCP - General Family Medicine 07/27/17
--- OUTSIDE RECORDS SUMMARY | 2024-07-22 17:56 | XMS_ITS | Encounter Summary ---
Author Organization [employer] Address [address] [facility] 7t [place] [address] Care Team Providers Care Electric Meter Reader Name Role Phone Name, Abdon GRAJEDA Primary Care Provider [phone] Joanne Jaime PharmD Unavailable [phone] Nicolette Robledo RN Unavailable [phone] Blaine Day Unavailable Unavailable Reason for Visit * Reason Comments Med Refill Encounter Details Date Type Department Care Team (Late st Contact Info) Description 03/21/2023 Refill [facility] [address] [place], [place] [phone] Name, MD Abdon [address] [place] [address] Chronic pain syndrome Social History Tobacco Use [...] Description 07/29/2024 3:30 PM EDT Office Visit [address] [address] NameAbdon MD [address] [place] [address] 09/23/2024 10:30 AM EDT Clinical Support [address] [address] Ciarra De Leon, KATHERINE documented as of [...] documented as of this encounter Care Teams Electric Meter Reader Relationship Specialty Start Date End Date Abdon Lopes MD [address] [place] [phone] PCP - General Family Medicine 07/27/17 Puia, Joanne, PharmD [address] [place] [address] Pharmacist Internal Medicine 07/27/21 03/10/24 Nicolette Robledo RN [address] [place] [phone] Wolf HunterSupervisor Putty And Caluking Medicine 08/25/23 10/22/23 Blaine Day Community Health Worker 08/29/23 10/22/23 documented as of this encounter
--- OUTSIDE RECORDS SUMMARY | 2024-07-22 17:56 | XMS_ITS | Encounter Summary ---
Author Organization [employer] Address [address] [facility] [address] [place] [address] Care Team Providers Care Financial Planning Consultant Name Role Phone Name, Abdon GRAJEDA Primary Care Provider [phone] Joanne Jaime PharmD Unavailable [phone] Nicolette Robledo RN Unavailable [phone] Blaine Day Unavailable Unavailable Reason for Visit * Reason Comments Med Refill Encounter Details Date Type Department Care Team (Late st Contact Info) Description 03/22/2023 Refill [facility] [address] [place], [place] [phone] Name, MD Abdon [address] [place] [address] Chronic pain syndrome Social History Tobacco Use [...] 07/29/2024 3:30 PM EDT Office Visit [address] [address] NameAbdon MD [address] [place] [address] 09/23/2024 10:30 AM EDT Clinical Support [address] [address] Ciarra De Leon, KATHERINE documented as of [...] documented as of this encounter Care Teams Financial Planning Consultant Relationship Specialty Start Date End Date Abdon Lopes MD [address] [place] [address] PCP - General Family Medicine 07/27/17 Puia, Joanne, PharmD [address] [place] [address] Pharmacist Internal Medicine 07/27/21 03/10/24 Nicolette Robledo RN [address] [place] [address] Plant TechnicianMilitary Pay Clerk Medicine 08/25/23 10/22/23 Blaine Day Community Health Worker 08/29/23 10/22/23 documented as of this encounter
--- OUTSIDE RECORDS SUMMARY | 2024-07-22 17:56 | XMS_ITS | Encounter Summary ---
Author Organization [employer] Address [address] [facility] 7t [place] [address] Care Team Providers Care Plasma Processing Technician Name Role Phone Name, Abdon GRAJEDA Primary Care Provider [phone] Joanne Jaime PharmD Unavailable [phone] Nicolette Robledo RN Unavailable [phone] Blaine Day Unavailable Unavailable Reason for Visit * Reason Onset Date Comments Med Refill 03/17/2023 Encounter Details Date Type Department Care Team (Late st Contact Info) Description 03/17/[address] [facility] [address] [place] [address] Name, MD Abdon [address] [place] [address] Med Refill Social History Tobacco Use Types [...] encounter Miscellaneous Notes * Telephone Encounter - Sinan George - 03/22/2023 10:22 AM EST Tc from pt requesting a status on Oxycodone 10 mg and 20 mg and morphine 15 mg , pt stated has no meds left. * Telephone Encounter - Cece Jackson RN - 03/17/2023 2:29 PM EST Refill too soon. Pt last filled 28 day supply of both meds on 02/23/23. Pt not due until 03/23/23. * Telephone Encounter - Deya Day - 03/17/2023 2:12 PM EST TC from pt requesting medication refill. Medications needing refill : morphine CR (MS Contin) 15 MG 12 hr tablet, oxyCODONE (Roxicodone) 10 MG immediate release tablet, oxyCODONE (Roxicodone) 20 MG immediate release tablet To be sent to: [facility] [place] - [phone] [place] - [address] documented in this encounter Plan of Treatment Upcoming Encounters Date Type Department Care Team (Late st Contact Info) Description 07/29/2024 3:30 PM EDT Office Visit [facility] [address] [place] [phone] Name, MD Abdon [address] [place] [address] 09/23/2024 10:30 AM EDT Clinical [facility] [address] [place] [phone] Ciarra De Leon, RN documented as of [...] documented as of this encounter Care Teams Plasma Processing Technician Relationship Specialty Start Date End Date Name, MD Abdon [address] [place] [address] PCP - General Family Medicine 07/27/17 Joanne Jaime, PharmD [address] [place] [address] Pharmacist Internal Medicine 07/27/21 03/10/24 Nicolette Robledo RN [address] [place] [address] Internet SpecialistPlanning Aide Medicine 08/25/23 10/22/23 Blaine Day Community Health Worker 08/29/23 10/22/23 documented as of this encounter
== END 2024-07-22 15:03 | disposition home or self-care (01) ==
LOC: HO.HHCX 15:02
PROVIDERS: Visit Provider General Practice
DX: M25.571 Pain in right ankle and joints of right foot (principal)
CPT/HCPCS: 73610

== ENCOUNTER → 2024-07-22 15:02 | Outpatient (BNV) | payer MEDICAID, SELFPAY | PROVIDERS: Visit Provider Radiology Diagnostic Radiology | DX: R22.41 Localized swelling, mass and lump, right lower limb (principal) | CPT/HCPCS: 73610 ==

== ENCOUNTER 2024-11-22 13:24 | Outpatient (REF) | payer MEDICAID, SELFPAY ==
--- OUTSIDE RECORDS SUMMARY | 2024-11-22 13:37 | XMS_ITS | Encounter Summary ---
Author Organization [employer] Address [address] [facility] 7t [place] [address] Care Team Providers Care Automotive Service Advisor Name Role Phone Name, Abdon GRAJEDA Primary Care Provider [phone] Joanne Jaime PharmD Unavailable [phone] Nicolette Robledo RN Unavailable [phone] Blaine Day Unavailable Reason for Visit * Reason Onset Date Comments Med Refill 02/22/2023 Encounter Details Date Type Department Care Team ([facility] st Contact Info) Description 02/22/2023 Telephone [facility] [address] [place], [place] [phone] Name, MD Abdon [address] [place], [place] [phone] Med Refill Social History Tobacco Use Types [...] Care Team (Late st Contact Info) Description 01/01/2025 11:30 AM EDT Clinical Support [facility] [address] [place] [address] Cirara De Leon RN documented as of this encounter Goals Goal Patient Goal Type Associated Problems Recent Progress Patient-Stated? Author Blood Pressure < 140/90 Blood Pressure 126/72(2024 2:23 PM EDT) No Puia, Joanne, PharmD Record your blood pressure periodically Blood Pressure No Puia, Joanne, PharmD documented as of this encounter Visit Diagnoses Not on filedocumented in this encounter Additional Health Concerns Assessment Noted Time PHQ-9 Depression Total Score: 20 023 9:16 AM EDT documented as of this encounter Care Teams Automotive Service Advisor Relationship Specialty Start Date End Date Name, MD Abdon [address] [place] [address] PCP - General Family Medicine 07/27/17 Puia, Joanne, PharmD [address] [place] [address] Pharmacist Internal Medicine 07/27/21 03/10/24 Nicolette Robledo, KATHERINE [address] [place] [address] Senior Mainframe Programmer AnalystHims Manager Medicine 08/25/23 10/22/23 Blaine Day Community Health Worker 08/29/2310/21 documented as of this encounter
--- OUTSIDE RECORDS SUMMARY | 2024-11-22 13:37 | XMS_ITS | Encounter Summary ---
Author Organization [employer] Address [address] [facility] [address]t [place] [address] Care Team Providers Care Medical Staffing Coordinator Name Role Phone Name, Abdon GRAJEDA Primary Care Provider [phone] Joanne Jaime PharmD Unavailable [phone] Nicolette Robledo RN Unavailable [phone] Blaine Day Unavailable Reason for Visit * Reason Comments Med Refill Encounter Details Date Type Department Care Team (Late st Contact Info) Description 03/21/2023 Refill [facility] [address] [place], [place] [phone] Name, MD Abdon [address] [place], [place] [phone] Chronic pain syndrome Social History Tobacco Use [...] Description 01/01/2025 11:30 AM EDT Clinical Support [facility] [address] [place] [address] Ciarra De Leon RN documented as of [...] documented as of this encounter Care Teams Medical Staffing Coordinator Relationship Specialty Start Date End Date Name, MD Abdon [address] [place] [address] PCP - General Family Medicine 07/27/17 Puia, Joanne, PharmD [address] [place] [address] Pharmacist Internal Medicine 07/27/21 03/10/24 Nicolette Robledo, KATHERINE [address] [place] [address] Hospital HousekeeperMolder Sweep Medicine 08/25/23 10/22/23 Blaine Day Community Health Worker 08/29/2310/21 documented as of this encounter
--- OUTSIDE RECORDS SUMMARY | 2024-11-22 13:37 | XMS_ITS | Clinical Summary ---
Author Organization [employer] Address [address] [facility] 7t [place] [address] Care Team Providers Care Three Dimensional Art Instructor Name Role Phone Name, Abdon GRAJEDA Primary Care Provider [phone] Allergies No known active allergies Medications * [...] affected nostril(s) if needed for opioid reversal. Page 0.1 milliliter by intranasal route in 1 nostril may repeat dose every 2-3 minutes as needed alternating nostrils with each dose 2 each 2 02/28/20 23 Active gabapentin (Neurontin) 300 MG capsule Take 300 mg by mouth 3 times daily. 08/09/19 24 Active Multiple Vitamins-Metal Buggy Operator als (Cerovite Senior) tablet TAKE 1 TABLET BY MOUTH ONCE DAILY IN THE MORNING 90 tablet 1 11/29/19 24 Active zolpidem (Ambien) 5 MG tablet TAKE 1 TABLET BY MOUTH ONCE DAILY NEEDED FOR insomnia 01/24/20 24 Active amLODIPine (Norvasc) 10 MG tabletIndicati ons:Hypertensi on, unspecified type Take 1 tablet (10 mg) by mouth Once per day. 90 tablet 3 04/19/19 25 Active camphor-mentho l (Sarna) lotionIndicati ons:Acute right ankle pain Apply topically if needed for irritation (to ankle). 222 mL 07/23/19 25 026 Active loratadine (Claritin) 10 MG tabletIndicati ons:Seasonal allergic rhinitis, unspecified trigger Take 1 tablet (10 mg) by mouth if needed each day for allergies. 90 tablet 3 07/24/19 25 Active Diclofenac Sodium 1 % gel APPLY 2 gramos TOPICALLY IN THE MORNING, AT NOON, IN THE EVENING, AND AT BEDTIME FOR PAIN 100 g 5 07/31/19 25 Active omeprazole (PriLOSEC) [address] capsuleIndicat ions:Heartburn TAKE 1 CAPSULE BY MOUTH TWICE A DAY. DO NOT CRUSH OR CHEW. 180 capsule 09/07/19 25 Active Ventolin HFA 108 (90 Base) MCG/ACT inhalerIndicat ions:Asthma, unspecified asthma severity, unspecified whether complicated, unspecified whether persistent INHALE 2 PUFF BY MOUTH EVERY 4 TO 6 HOURS NEEDED 18 g 1 09/17/19 25 Active nabumetone (Relafen) 500 MG tabletIndicati ons:Pain in right hand,Other specified soft tissue disorders TAKE 1 TABLET BY MOUTH two (2) times a day NEEDED FOR PAIN knee 30 tablet 1 10/15/19 25 Active lidocaine (Lidoderm) 5 % patch APPLY 1 PATCH TOPICALLY ONCE DAILY NEEDED FOR PAIN leve. remove patch after 12 hours 30 patch 10/31/19 25 Active acetaminophen (Tylenol 8 Hour) 650 MG ER tablet TAKE 1 TABLET BY MOUTH EVERY 8 HOURS NEEDED FOR PAIN leve. do not crush, chew, or split 40 tablet 1 11/09/19 25 Active morphine CR (MS Contin) 15 MG 12 hr tabletIndicati ons:Chronic pain syndrome Take 1 tablet (15 mg) by mouth every 12 (twelve) hours for 28 days. Do not crush, chew, or split. Do not start before November 28, 2024. 56 tablet 11/29/19 25 025 Active oxyCODONE (Roxicodone) 10 MG immediate release tabletIndicati ons:Chronic pain syndrome Take 1 tablet (10 mg) by mouth every 12 (twelve) hours if needed for severe pain for up to 28 days. Do not start before November 28, 2024. 56 tablet 11/29/19 25 025 Active acetaminophen (Tylenol 8 Hour) 650 MG ER tablet TAKE 1 TABLET BY MOUTH EVERY 8 HOURS NEEDED FOR PAIN leve. do not crush, chew, or split 40 tablet 1 09/14/19 25 025 Discontinued oxyCODONE (Roxicodone) 10 MG immediate release tabletIndicati ons:Chronic pain syndrome Take 1 tablet (10 mg) by mouth every 12 (twelve) hours if needed for severe pain for up to 28 days. Do not start before October 03, 2024. 56 tablet 10/04/19 25 025 Discontinued(R eorder (will not trigger notification to Pharmacy)) morphine CR (MS Contin) 15 MG 12 hr tabletIndicati ons:Chronic pain syndrome Take 1 tablet (15 mg) by mouth every 12 (twelve) hours for 28 days. Do not crush, chew, or split. Do not start before October 03, 2024. 56 tablet 10/04/19 25 025 Discontinued(R eorder (will not trigger notification to Pharmacy)) lidocaine (Lidoderm) 5 % patch APPLY 1 PATCH TOPICALLY ONCE DAILY NEEDED FOR PAIN leve, remove patch after 12 hours 30 patch 10/04/19 25 025 Discontinued morphine CR (MS Contin) 15 MG 12 hr tabletIndicati ons:Chronic pain syndrome Take 1 tablet (15 mg) by mouth every 12 (twelve) hours for 28 days. Do not crush, chew, or split. Do not start before October 31, 2024. 56 tablet 11/01/19 25 025 Discontinued(R eorder (will not trigger notification to Pharmacy)) oxyCODONE (Roxicodone) 10 MG immediate release tabletIndicati ons:Chronic pain syndrome Take 1 tablet (10 mg) by mouth every 12 (twelve) hours if needed for severe pain for up to 28 days. Do not start before October 31, 2024. 56 tablet 11/01/19 25 025 Discontinued(R eorder (will not trigger notification to Pharmacy)) Active Problems Problem Noted Date Diagnosed Date Long-term current use of opiate analgesic 2024 Acute right ankle pain 07/22/2024 Assessment & Plan (07/24/2024 4:29 PM EDT): Per recent NIH guidelines, recommend the following for care of acute injury: PEACE (Acute Phase - First few days): P - Protect: Unload or restrict movement to prevent further damage. E - Elevate: Elevate the injured area above the heart to help reduce swelling. A - Avoid anti-inflammatories: Avoid medications and ice that reduce inflammation, as it's a crucial part of the healing process. C - Compress: Use a bandage or tape to help manage swelling. E - Educate: Learn about the healing process and how to manage your injury. LOVE (Rehabilitation - After the initial days): L - Load: Gradually increase weight-bearing and activity, focusing on pain-free movement. O - Optimism: Maintain a positive outlook to support recovery. V - Vascularization: Engage in gentle cardio to promote blood flow and tissue healing. E - Exercise: Perform exercises to restore range of motion, strength, and functio Hypertensive disorder 03/01/2022 H/O Spinal surgery 03/01/2022 [...] pain and falling out of touch with [facility] one care Nella Corona. Patient will benefit from continued OP therapy, exploring coping mechanisms, and reengaging with care management. At this time Cahndu Wylie meets criteria for Visit Diagnoses: Problem List Items Addressed This Visit Other Moderate episode of recurrent major depressive disorder (CMS/HCC) Patient ready to address current needs Yes Strengths- Chandu is open to suggestions and in the action stage of change. PLAN: 1. Follow up with [facility]: Recommended for follow-up: 11/16/22 with PCP 2. Patient goal is to increase coping mechanisms and decrease depressive symptoms 3. Behavioral Recommendations a. PTSD instructional technology coach- guided deep breathing b. PCP med management possible increase c. OP therapy Encounters Date Type Department Care Team Description 11/22/2024 Telephone [facility] [address] [place] [address] Abdon Lopes MD 11/22/2024 Travel 11/21/2024 Refill [facility] [address] [place] [address] Abdon Lopes MD Chronic pain syndrome 11/13/2024 2:15 PM EDT Office Visit [address] [address] Abdon Lopes MD Hypertension, unspecified type (Primary Dx); Viral wart on finger 11/13/2024 Travel 11/12/2024 Telephone [facility] [address] [place] [address] Ko Ramsay [place] CHARTPREP 11/08/2024 Refill [facility] [address] [place] [address] Abdon Lopes MD 10/29/2024 Refill [facility] [address] [place] [address] Abdon Lopes MD 10/28/2024 Refill [facility] [address] [place] [address] Abdon Lopes MD Chronic pain syndrome 10/16/2024 11:30 AM EDT Clinical Support [address] [address] Ciarra De Leon RN Long-term current use of opiate analgesic (Primary Dx) 10/16/2024 Telephone [facility] [address] [place] [address] HaleyCiarra quezada RN BPI Scoring 10/16/2024 Travel 10/12/2024 Refill [facility] [address] [place] [address] Abdon Lopes MD Pain in right hand; Other specified soft tissue disorders 10/03/2024 Refill [facility] [address] [place] [address] Judy Powers MD 09/30/2024 Refill [facility] [address] [place] [address] Abdon Lopes MD Chronic pain syndrome 09/23/2024 Telephone [facility] [address] [place] [address] NameAbdon MD Appointment Request 09/23/2024 Telephone [facility] [address] [place] [address] NameAbdon MD Appointment Request 09/23/2024 Telephone [facility] [address] [place] [address] Ciarra De Leon RN NCNS for RECORD PRESS SUPERVISOR RV appt today 09/16/2024 Refill [facility] [address] [place] [address] NameAbdon MD Asthma, unspecified asthma severity, unspecified whether complicated, unspecified whether persistent 09/13/2024 Refill [facility] [address] [place] [address] NameAbdon MD 09/05/2024 Refill [facility] [address] [place] [address] Anna Ferrera, JACI Heartburn 09/04/2024 Telephone [facility] [address] [place] [address] NameAbdon MD Med Refill 09/04/2024 Refill [facility] [address] [place] [address] Abdon Lopes MD Chronic pain syndrome 09/02/2024 Refill [facility] [address] [place] [address] Abdon Lopes MD Chronic pain syndrome 09/01/2024 Refill [facility] [address] [place] [address] Abdon Lopes MD from Last 3 Months Immunizations Immunization Administration Dates Next Due HepB-CpG 04/26/2023,03/23/2023 Influenza injectable quadriv alent preservative free 01/26/2023,02/15/2022,12/14/2020,2018 Influenza, IIV3, injectable 02/15/2022 Moderna Covid-19 Vaccine 12+ 03/17/2021,08/28/19 21,07/30/2020 Pfizer Covid-19 Vaccine 12+ Bivalent 02/15/2022 Pneumococcal Conjugate PCV 13 02/27/2017 Tdap 05/24/2023,06/04/2012 Social History Tobacco Use Types Packs/Day Years Used Date Smoking Tobacco: Former Cigarettes Smokeless Tobacco: Never Tobacco Cessation:Counseling Given: Not Answered Alcohol Use Standard Drinks/Week Comments Not Currently 0 (1 standard drink = 0.6 oz pur e alcohol) Depression Answer Date Recorded Patient Health Questionnaire-9 Score 14 07/29/2024 Patient Health Questionnaire-9 Score 14 07/29/2024 Last PHQ-9: Questionnaire Data Not on file 0 07/29/2024 Housing Stability Answer Date Recorded What is your housing situation today? I have verona schumacher 07/29/[address] you li ve. Do you have problems with any of the following? None of the above 07/29/2024 Food Insecurity Answer Date Recorded Within the past 12 months, y ou worried that your food would run out before you got money to buy more: Sometimes True 2024 Within the past 12 months,th e food you bought just didn't last and you didn't have enough money to get more: Sometimes True 07/29/2024 Transportation Answer Date Recorded In the past 12 months, has l ack of transportation kept you from medical appts, meetings, work or from getting things needed for daily living? No 07/29/2024 Utilities Answer Date Recorded In the past 12 months, has t he electric, gas, oil or water company threatened to shut off services in your home? No 07/29/2024 Depression Answer Date Recorded Patient Health Questionnaire-2 Score 4 07/29/2024 Internet Access Answer Date Recorded Internet Access Q1 No 07/29/2024 Internet Access Q2 I do not want or need it 07/2024 Sex and Gender Information Value Date Recorded Sex Assigned at Male 01/24/2022 10:33 AM EDT Legal Sex Male 10:33 AM EDT Gender Identity Male 01/24/2022 10:33 AM EDT Sexual Orientation Straight 01/24/2022 10 :33 AM EDT Last Filed Vital Signs Vital Sign Reading Time Taken Comments Blood Pressure 126/72 11/13/2024 2:23 PM EDT Pulse 75 11/13/2024 2:23 PM EDT Temperature 36.9 C (98.5 F) 11/13/2024 2:23 PM EDT Respiratory Rate 18 11/13/2024 2:23 PM EDT Oxygen Saturation 98% 11/13/2024 2:23 PM EDT Inhaled Oxygen Concentration - - Weight 87 kg (191 lb 12.8 oz) 11/13/2024 2:23 PM EDT Height 185.4 cm (6' 1 ) 11/13/2024 2:23 PM EDT Body Mass Index 25.3 11/13/2024 2:23 PM EDT Plan of Treatment Upcoming Encounters Date Type Department Care Team (Late st Contact Info) Description 01/01/2025 11:30 AM EDT Clinical Support [facility] [address] [place] [address] Ciarra De Leon, RN Health Maintenance Due Date Last Done Comments CT Colonography 1974 Colonoscopy 1974 Colorectal Cancer Screening 1974 FIT DNA/Cologuard 1974 FIT 1974 FOBT 1974 Sigmoidoscopy 1974 Family Planning (PISQ) 1989 Pneumococcal Vaccine: 50+ Years (2 of 2 - PPSV23) 04/24/2017 02/27/2017 COVID-19 Vaccine ( season) 2023 02/15/2022, 03/17/2021, 08/27/2020, Additional history exists Zoster Vaccines (1 of 2) 2024 Influenza Vaccine (#1) 2024 , 02/15/2022, 02/15/2022, Additional history exists Depression Monitoring 01/29/2025 07/29/2024, 025 Alcohol/Substance Use Screening 07/29/2025 07/29/2024 Disability Screening 07/29/2025 07/29/2024 SDOH Screening 07/29/2025 07/29/2024 Tobacco Screening 11/13/2025 11/13/2024 Lipid Panel 02/02/2028 02/01/2023, 09/25, 12/11/2020 DTaP/Tdap/Td [...] patient's age to complete this topic Meningococcal B Vaccine Aged Out No l onger eligible based on patient's age to complete [...] Procedure Name Priority Date/Time Associated Diagnosis Comments POCT BESSIE-14 URINE DRUG SCREEN Routine 10/16/2024 11:32 AM EDT Long-term current use of opiate analgesic HEPATITIS C ANTIBODY Routine 02/01/2023 8:57 AM EST Screen for STD (sexually transmitted disease) HIV 1/2 ANTIGEN/ANTIBODY, FOURTH GENERATION W/RFL Routine 02/01/2023 8:57 AM EST Screen for STD (sexually transmitted disease) LIPID PANEL, STANDARD Routine 02/01/2023 8:57 AM EST Screening for cholesterol level from Last 3 Months or Most Recently Relevant to Health Maintenance Results * POCT BESSIE-14 Urine Drug Screen (10/16/2024 11:32 AM EDT) THC Positive Negative Cocaine Screen, Urine Negative Negative Opiate Screen, Urine Positive Negative Methamphetamine Screen Urine Negative Negative Amphetamine Screen, Urine Negative Negative Benzodiazepines Screen, Urine Negative Negative Barbiturate Screen, Urine Negative Negative Methadone Screen, Urine Negative Negative Buprenophine Screen, Urine Negative Negative TCA, Urine Negative Negative MDMA Urine Negative Negative ng/mL Oxycodone Screen, Urine Positive Negative Phencyclidine (PCP), Urine Negative Negative Propoxyphene, Urine Negative Negative Fentanyl, Urine Negative Negative Urine Urine specimen obtained by clean catch procedure / Unknown 10/16/2024 11:32 AM EDT Narrative Ciarra De Leon RN - 10/16/2024 11:32 AM EDT UTOX cup Lot#[id number] Exp. 12/31/25 Internal Pass Control us Abdon Lopes MD POINT OF CARE TEST ENTER/EDIT OR DERABLES Final Result * Hepatitis C Ab (02/01/2023 8:57 AM EST) Pathologist [facility] Hepatitis C Antibody Nonreactive Nonreactive [facility] Comment:Antibodies to HCV no t detected; does not exclude early acuteHCV infection. Blood Venous blood specimen / Unknown 02/01/2023 8:57 AM EST 02/01/2023 11:08 AM EST us Abdon Lopes MD LAB BLOOD ORDERABLES Final Resul t [facility] [address] [place] [phone] * HIV-1/2 Antigen and Antibodies, Fourth Generation, with Reflexes (02/01/2023 8:57 AM EST) HIV AB/AG Nonreactive Nonreactive [facility] Comment:HIV-1 p24 Ag and/or HIV-1/HIV-2 Ab not detected.A test result that is nonreactive does not exclude thepossibility of exposure to or infection with HIV-1 and/orHIV-2. Nonreactive results in this assay for individualswith prior exposure to HIV-1 and/or HIV-2 may be due toantigen and antibody levels that are below the limit ofdetection of this assay.The [employer] HIV Ag/Ab Combo assay result andsupplemental assay results should be interpreted inconjunction with the patient's clinical presentation,history and other laboratory results. If the results areinconsistent with clinical evidence, additional testing issuggested to confirm the result. Blood Venous blood specimen / Unknown 02/01/2023 8:57 AM EST 02/01/2023 11:08 AM EST us Badon Name LAB BLOOD ORDERABLES Final Resul t [facility] [address] [place] [phone] * Lipid Panel, Standard (02/01/2023 8:57 AM EST) Triglycerides 39 <150 mg/dL [facility] Comment:Desirable Triglyceri de: less than 150 mg/dLBorderline High Triglyceride 150-199 mg/dLHigh Triglyceride: 200-499 mg/dLVery High Triglyceride: greater than or equal to 5OO mg/dL Cholesterol 166 <200 mg/dL [facility] Comment:Desirable Cholestero l: less than 200 mg/dLBorderline High Cholesterol: 200-239 mg/dLHigh Cholesterol: greater than 239 mg/dL LDL Cholesterol Calculated 96 <100 mg/dL [facility] Comment:Desirable LDL: less than 100 mg/dLNear Optimal/Above Optimal LDL: 110- 129 mg/dLBorderline High LDL: 130-159 mg/dLHigh LDL: 160-189 mg/dLVery High LDL: greater than or equal to 190 mg/dL HDL Cholesterol 63 >40 mg/dL [facility] Comment:Desirable HDL: great er than 40 mg/dL Note: This HDL assay may give artificially low results in patients with liver disease. Blood Venous blood specimen / Unknown 02/01/2023 8:57 AM EST 02/01/2023 11:08 AM EST us Abdon Name LAB BLOOD ORDERABLES Final Resul t [facility] [address] [place] [address] [phone] from Last 3 Months or Most Recently Relevant to Health Maintenance Insurance [facility] C3 Care Teams Three Dimensional Art Instructor Relationship Specialty Start Date End Date Name, MD Abdon [address] [place] [address] PCP - General Family Medicine 07/27/17
--- OUTSIDE RECORDS SUMMARY | 2024-11-22 13:37 | XMS_ITS | Encounter Summary ---
Author Organization [employer] Address [address] [facility] 7t [place] [address] Care Team Providers Care License Clerk Name Role Phone Name, Abdon GRAJEDA Primary Care Provider [phone] Joanne Jaime PharmD Unavailable [phone] Nicolette Robledo RN Unavailable [phone] Blaine Day Unavailable Reason for Visit * Reason Comments Med Refill Encounter Details Date Type Department Care Team (Late st Contact Info) Description 09/04/2023 Refill [facility] [address] [place], [place] [phone] Name, MD Abdon [address] [place] [address] Pain in right hand; Other specified soft [...] Description 01/01/2025 11:30 AM EDT Clinical Support [facility] [address] [place] [address] Ciarra De Leon RN documented as of this encounter Goals Goal Patient Goal Type Associated Problems Recent Progress Patient-Stated? Author Blood Pressure < 140/90 Blood Pressure 126/72(2024 2:23 PM EDT) No oJanne Jaime, PharmD Record your blood pressure periodically Blood Pressure No Ernst Jaimeyssa, PharmD documented as of this encounter Visit Diagnoses Diagnosis Pain in right hand Other specified soft tissue disorders Chronic pain syndrome documented in this encounter Additional Health Concerns Assessment Noted Time PHQ-9 Depression Total Score: 19 024 9:12 AM EST documented as of this encounter Care Teams License Clerk Relationship Specialty Start Date End Date Name, MD Abdon [address] [place] [phone] PCP - General Family Medicine 07/27/17 Joanne Jaime, PharmD [address] [place] [address] Pharmacist Internal Medicine 07/27/21 03/10/24 Nicolette Robledo RN [address] [place] [phone] Child SpecialistOr Assistant Medicine 08/25/23 10/22/23 Blaine Day Community Health Worker 08/29/2310/21 documented as of this encounter
--- OUTSIDE RECORDS SUMMARY | 2024-11-22 13:37 | XMS_ITS | Encounter Summary ---
Author Organization [employer] Address [address] [facility] 7t [place] [address] Care Team Providers Care Education Program Associate Name Role Phone Name, Abdon GRAJEDA Primary Care Provider [phone] Joanne Jaime PharmD Unavailable [phone] Nicolette Robledo RN Unavailable [phone] Blaine Day Unavailable Reason for Visit * Reason Comments Med Refill Encounter Details Date Type Department Care Team (Late st Contact Info) Description 09/29/2023 Refill [facility] [address] [place] [address] Anna Ferrera NP [address] [place], [place] [phone] Chronic pain syndrome Social History Tobacco Use [...] Description 01/01/2025 11:30 AM EDT Clinical Support [facility] [address] [place] [address] Ciarra De Leon RN documented as of this encounter Goals Goal Patient Goal Type Associated Problems Recent Progress Patient-Stated? Author Blood Pressure < 140/90 Blood Pressure 126/72(2024 2:23 PM EDT) No PuiaErnstJoanne, PharmD Record your blood pressure periodically Blood Pressure No PuJoanne thompson, PharmD documented as of this encounter Visit Diagnoses Diagnosis Chronic pain syndrome documented in this encounter Additional Health Concerns Assessment Noted Time PHQ-9 Depression Total Score: 19 024 9:12 AM EST documented as of this encounter Care Teams Education Program Associate Relationship Specialty Start Date End Date Name, MD Abdon [address] [place] [phone] PCP - General Family Medicine 07/27/17 PuiaJoanne, PharmD [address] [place] [address] Pharmacist Internal Medicine 07/27/21 03/10/24 Nicolette Robledo RN [address] [place] [phone] Automotive General ManagerOrder Detailer Medicine 08/25/23 10/22/23 Blaine Day Community Health Worker 08/29/2310/21 documented as of this encounter
--- OUTSIDE RECORDS SUMMARY | 2024-11-22 13:37 | XMS_ITS | Encounter Summary ---
Author Organization [employer] Address [address] [facility] 7t [place] [address] Care Team Providers Care Test Driver Name Role Phone Name, Abdon GRAJEDA Primary Care Provider [phone] Joanne Jaime PharmD Unavailable [phone] Nicolette Robledo RN Unavailable [phone] Blaine Day Unavailable Reason for Visit * Reason Comments Med Refill Encounter Details Date Type Department Care Team (Late st Contact Info) Description 02/23/2023 Refill [facility] [address] [place], [place] [phone] Name, MD Abdon [address] [place], [place] [phone] Pain in right hand; Other specified soft [...] Description 01/01/2025 11:30 AM EDT Clinical Support [facility] [address] [place] [phone] Ciarra De Leon RN documented as of [...] documented as of this encounter Care Teams Test Driver Relationship Specialty Start Date End Date Name, MD Abdon [address] [place] [address] PCP - General Family Medicine 07/27/17 Puia, Joanne, PharmD [address] [place] [address] Pharmacist Internal Medicine 07/27/21 03/10/24 Nicolette Robledo RN [address] [place] [phone] Results TechnicianStove Cleaner Medicine 08/25/23 10/22/23 Blaine Day Community Health Worker 08/29/2310/21 documented as of this encounter
--- OUTSIDE RECORDS SUMMARY | 2024-11-22 13:37 | XMS_ITS | Encounter Summary ---
Author Organization [employer] Address 75 [facility] 7t [place] [address] Care Team Providers Care Managed Care Liaison Name Role Phone Name, Abdon GRAJEDA Primary Care Provider [phone] Reason for Visit * Reason Onset Date Comments Med Refill 11/21/2024 Encounter Details Date Type Department Care Team (Late st Contact Info) Description 11/21/2024 Refill [facility] [address] [place], [place] [phone] Name, MD Abdon [address] [place], [place] [phone] Chronic pain syndrome Social History Tobacco Use Types Packs/Day Years Used Date Smoking Tobacco: Former Cigarettes Smokeless Tobacco: Never Alcohol Use Standard Drinks/Week Comments Not Currently [...] encounter Miscellaneous Notes * Telephone Encounter - Ciarra De Leon RN - 11/21/2024 2:12 PM EDT Per Ivone, Oxycodone and MS Contin both last picked up 10/31/24 for a 28 day supply. Refillsn ot due until 11/28/24. Will send to PCP on 11/26/24. * Telephone Encounter - Abdon Antony - 11/21/2024 1:32 PM EDT TC from pt requesting medication refill. Medications needing refill : oxyCODONE (Roxicodone) 10 MG immediate release tablet To be sent to: [facility] - [place] - [phone] - [place] - [address] Patient is requesting the medication early due to Monday being a holiday. documented in this encounter Plan of Treatment Upcoming Encounters Date Type Department Care Team (Late st Contact Info) Description 01/01/2025 11:30 AM EDT Clinical Support [facility] [address] [place] [phone] Ciarra De Leon, RN documented as of this encounter Goals Goal Patient Goal Type Associated Problems Recent Progress Patient-Stated? Author Blood Pressure < 140/90 Blood Pressure 126/72(2024 2:23 PM EDT) No Joanne Jaime, Jerry Record your blood pressure periodically Blood Pressure No Joanne Jaime PharmD documented as of this encounter Visit Diagnoses Diagnosis Chronic pain syndrome documented in this encounter Additional Health Concerns Assessment Noted Time PHQ-9 Depression Total Score: 14 025 4:24 PM EDT documented as of this encounter Care Teams Managed Care Liaison Relationship Specialty Start Date End Date Name, MD Abdon [address] [place] [address] PCP - General Family Medicine 07/27/17 documented as of this encounter
--- OUTSIDE RECORDS SUMMARY | 2024-11-22 13:37 | XMS_ITS | Encounter Summary ---
Author Organization [employer] Address 75 [facility] 7t [place] [address] Care Team Providers Care Student Worker Name Role Phone Name, Abdon GRAJEDA Primary Care Provider [phone] Joanne Jaime PharmD Unavailable [phone] Nicolette Robledo RN Unavailable [phone] Blaine Day Unavailable Reason for Visit * Reason Onset Date Comments [facility] Kliqed Application 04/25/2022 I call ed the pt regarding an application for the [facility]. He stated that he would like for the same information that was listed on the 09/17/2021 [facility] form, to be listed on the new form. I informed him that if he wants sensitive information to be listed, he needs to initial the back of the release of information. He stated that he gives verbal authorization for it to be listed, and will initial the release when he comes to the [facility] Dept to order picker/assembler the form. Encounter Details Date Type Department Care Team (Late st Contact Info) Description 04/25/2022 Telephone [facility] [address] [place] [address] Name, MD Abdon [address] [place], [place] [phone] [facility] Kliqed Application (I called the pt regarding an application for the [facility]. He stated that he would like for the same information that was listed on the 09/17/2021 [facility] form, to be listed on the new form. I informed him that if he wants sensitive information to be listed, he needs to initial the back of the release of information. He stated that he gives verbal authorization for it to be listed, and will initial the release when he comes to the [facility] Dept to order picker/assembler the form.) Social History Tobacco Use Types [...] Recorded In the last 10 days, have yo u been in contact with someone who was confirmed or suspected to have Coronavirus/COVID-19? No / Unsure 04/13/2022 3:37 PM EST documented as of this encounter Plan of Treatment Upcoming Encounters Date Type Department Care Team (Late st Contact Info) Description 01/01/2025 11:30 AM EDT Clinical Support [facility] [address] [place] [address] Ciarra De Leon, KATHERINE documented as of this encounter Visit Diagnoses Not on filedocumented in this encounter Care Teams Student Worker Relationship Specialty Start Date End Date Name, MD Abdon [address] [place] [address] PCP - General Family Medicine 07/27/17 Joanne Jaime PharmD [address] [place] [address] Pharmacist Internal Medicine 07/27/21 03/10/24 Nicolette Robledo RN [address] [place] [address] Service Attendant CafeteriaService Desk Agent Medicine 08/25/23 10/22/23 Blaine Day Community Health Worker 08/29/2310/21 documented as of this encounter
--- OUTSIDE RECORDS SUMMARY | 2024-11-22 13:37 | XMS_ITS | Encounter Summary ---
Author Organization [employer] Address 75 [facility] 7t [place] [address] Care Team Providers Care Ornamental Metal Worker Helper Name Role Phone Name, Abdon GRAJEDA Primary Care Provider [phone] Encounter Details Date Type Department Care Team (Latest Contact Info) Description 11/22/2024 Travel Social History Tobacco Use Types Packs/Day Years [...] Description 01/01/2025 11:30 AM EDT Clinical Support [facility] 230 [place] [address] Ciarra De Leon RN documented as of [...] documented as of this encounter Care Teams Ornamental Metal Worker Helper Relationship Specialty Start Date End Date Name, MD Abdon 230 [place] [address] PCP - General Family Medicine 07/27/17 documented as of this encounter
--- OUTSIDE RECORDS SUMMARY | 2024-11-22 13:37 | XMS_ITS | Encounter Summary ---
Author Organization [employer] Address 75 [facility] 7t [place] [address] Care Team Providers Care Tank Welder Name Role Phone Name, Abdon GRAJEDA Primary Care Provider [phone] Joanne Jaime PharmD Unavailable [phone] Nicolette Robledo RN Unavailable [phone] Blaine Day Unavailable Reason for Visit * Reason Comments Med Refill Encounter Details Date Type Department Care Team (Late st Contact Info) Description 09/04/2023 Refill [facility] 230 [place] [address] Name, MD Abdon [address] [place] [address] Chronic pain syndrome; Pain in right hand; [...] Description 01/01/2025 11:30 AM EDT Clinical Support [facility] [address] [place] [address] Ciarra De Leon, KATHERINE documented as of this encounter Goals Goal Patient Goal Type Associated Problems Recent Progress Patient-Stated? Author Blood Pressure < 140/90 Blood Pressure 126/72(2024 2:23 PM EDT) No Joanne Jaime, PharmD Record your blood pressure periodically Blood Pressure No Joanne Jaime, PharmD documented as of this encounter Visit Diagnoses Diagnosis Chronic pain syndrome Pain in right hand Other specified soft tissue disorders Heartburn documented in this encounter Additional Health Concerns Assessment Noted Time PHQ-9 Depression Total Score: 19 024 9:12 AM EST documented as of this encounter Care Teams Tank Welder Relationship Specialty Start Date End Date Name, MD Abdon [address] [place] [address] PCP - General Family Medicine 07/27/17 Joanne Jaime, PharmD [address] [place] [address] Pharmacist Internal Medicine 07/27/21 03/10/24 Nicolette Robledo RN [address] [place] [address] Program TrainerFinishing Range Supervisor Medicine 08/25/23 10/22/23 Blaine Day Community Health Worker 08/29/2310/21 documented as of this encounter
--- OUTSIDE RECORDS SUMMARY | 2024-11-22 13:37 | XMS_ITS | Encounter Summary ---
Author Organization [employer] Address 75 [facility] 7t [place] [address] Care Team Providers Care Bulk Delivery Driver Name Role Phone Name, Abdon GRAJEDA Primary Care Provider [phone] Joanne Jaime PharmD Unavailable [phone] Nicolette Robledo RN Unavailable Blaine Day Unavailable Reason for Visit * Reason Onset Date Comments Med Refill 03/17/2023 Encounter Details Date Type Department Care Team ([facility] st Contact Info) Description 03/17/2023 Telephone [facility] 230 [place], [place] [phone] Name, MD Abdon [address] [place], [place] [phone] Med Refill Social History Tobacco Use Types [...] immediate release tablet To be sent to: [facility] - [place] - [phone] - [place] - [phone] documented in this encounter Plan of Treatment Upcoming Encounters Date Type Department Care Team ([facility] st Contact Info) Description 01/01/2025 11:30 AM EDT Clinical Support [facility] [address] [place] [address] Ciarra De Leon, RN documented as of this encounter Goals Goal Patient Goal Type Associated Problems Recent Progress Patient-Stated? Author Blood Pressure < 140/90 Blood Pressure 126/72(2024 2:23 PM EDT) No Puia, Joanne, PharmD Record your blood pressure periodically Blood Pressure No PuiaErnstJoanne, PharmD documented as of this encounter Visit Diagnoses Not on filedocumented in this encounter Additional Health Concerns Assessment Noted Time PHQ-9 Depression Total Score: 20 023 9:16 AM EDT documented as of this encounter Care Teams Bulk Delivery Driver Relationship Specialty Start Date End Date Name, MD Abdon [address] [place] [address] PCP - General Family Medicine 07/27/17 Joanne Jaime, PharmD [address] [place] [address] Pharmacist Internal Medicine 07/27/21 03/10/24 Nicolette Robledo RN [address] [place] [address] Cleaner AssistantDynamometer Repairer Medicine 08/25/23 10/22/23 Blaine Day Community Health Worker 08/29/2310/21 documented as of this encounter
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
--- OUTSIDE RECORDS SUMMARY | 2024-11-22 13:37 | XMS_ITS | Encounter Summary ---
Author Organization [employer] Address [address] [facility] 7t [place] [address] Care Team Providers Care Tattoo Technician Name Role Phone Name, Abdon GRAJEDA Primary Care Provider [phone] Joanne Jaime PharmD Unavailable [phone] Nicolette Robledo RN Unavailable [phone] Blaine Day Unavailable Reason for Visit * Reason Comments Med Refill Encounter Details Date Type Department Care Team (Late st Contact Info) Description 03/22/2023 Refill [facility] 230 [place], [place] [phone] Name, MD Abdon [address] [place], [place] [phone] Chronic pain syndrome Social History Tobacco Use [...] Description 01/01/2025 11:30 AM EDT Clinical Support [facility] [address] [place] [address] Ciarra De Leon RN documented as of [...] documented as of this encounter Care Teams Tattoo Technician Relationship Specialty Start Date End Date Name, MD Abdon [address] [place] [address] PCP - General Family Medicine 07/27/17 Puia, Joanne, PharmD [address] [place] [address] Pharmacist Internal Medicine 07/27/21 03/10/24 Nicolette Robledo, KATHERINE [address] [place] [address] Minilab OperatorActimize Architect Medicine 08/25/23 10/22/23 Blaine Day Community Health Worker 08/29/2310/21 documented as of this encounter
--- OUTSIDE RECORDS SUMMARY | 2024-11-22 13:37 | XMS_ITS | Encounter Summary ---
Author Organization [employer] Address 75 [facility] 7t [place] [address] Care Team Providers Care Police Communications Operator Name Role Phone Name, Abdon GRAJEDA Primary Care Provider [phone] Joanne Jaime PharmD Unavailable [phone] Nicolette Robledo RN Unavailable [phone] Blaine Day Unavailable Reason for Visit * Reason Onset Date Comments Handicap Placard 09/27/2023 Encounter Details Date Type Department Care Team (Late st Contact Info) Description 09/27/2023 Telephone [facility] 230 [place], [place] [phone] Name, MD Abdon [address] [place], [place] [phone] Handicap Placard Social History Tobacco Use Types [...] Description 01/01/2025 11:30 AM EDT Clinical Support [address] [phone] Ciarra De Leon, RN documented as of [...] documented as of this encounter Care Teams Police Communications Operator Relationship Specialty Start Date End Date Name, MD Abdon [address] [place] [address] PCP - General Family Medicine 07/27/17 Joanne Jaime, PharmD [address] [place] [address] Pharmacist Internal Medicine 07/27/21 03/10/24 Nicolette Robledo RN [address] [place] [address] Farm Operations Technical DirectorSpace Studies Faculty Member Medicine 08/25/23 10/22/23 Blaine Dya Community Health Worker 08/29/2310/21 documented as of this encounter
--- OUTSIDE RECORDS SUMMARY | 2024-11-22 13:37 | XMS_ITS | Encounter Summary ---
Author Organization [employer] Address 75 [facility] 7t [place] [address] Care Team Providers Care Jacquard Card Lacer Name Role Phone Name, Abdon GRAJEDA Primary Care Provider [phone] Joanne Jaime PharmD Unavailable [phone] Nicolette Robledo RN Unavailable [phone] Blaine Day Unavailable Reason for Visit * Reason Comments Med Refill Encounter Details Date Type Department Care Team (Late st Contact Info) Description 02/13/2023 Refill [facility] 230 [place], [place] [phone] Name, MD Abdon [address] [place], [place] [phone] Chronic pain syndrome Social History Tobacco Use [...] Description 01/01/2025 11:30 AM EDT Clinical Support [facility] [address] [place] [address] Ciarra De Leon RN documented as of [...] documented as of this encounter Care Teams Jacquard Card Lacer Relationship Specialty Start Date End Date Name, MD Abdon [address] [place] [address] PCP - General Family Medicine 07/27/17 Puia, Joanne, PharmD [address] [place] [address] Pharmacist Internal Medicine 07/27/21 03/10/24 Nicolette Robledo, KATHERINE [address] [place] [address] Cloth Shrinking Machine OperatorSchool Social Worker Medicine 08/25/23 10/22/23 Blaine Day Community Health Worker 08/29/2310/21 documented as of this encounter
[2024-11-22 17:24] LABS: Microalbum/Creatinine Ratio Ur 8.8 ug/mg cr (<30)
[2024-11-22 18:25] LABS: Anion Gap 13 (12-20); Blood Urea Nitrogen 11 mg/dL (9-16); Calcium 9.5 mg/dL (8.4-10.2); Carbon Dioxide 24 mmol/L (22-29); Chloride 109 mmol/L (96-108); Estimated Glomerular Filt Rate > 60; Potassium 4.1 mmol/L (3.3-5.1); Sodium 142 mmol/L (135-145)
== END 2024-11-22 13:25 | disposition home or self-care (01) ==
LOC: HO.HHCL 13:24
PROVIDERS: PCP Internal Medicine Geriatric Medicine; Visit Provider Internal Medicine Geriatric Medicine
DX: I10 Essential (primary) hypertension (principal)
CPT/HCPCS: 36415; 80048; 82043; 82570

== ENCOUNTER 2025-02-11 11:57 | Outpatient (REF) | payer MEDICAID, SELFPAY ==
--- NOTE | ~2025-02-11 | XR_ITS ---
EXAMINATION: XR HAND, LEFT CLINICAL INFORMATION: left hand pain COMPARISON: None available. TECHNIQUE: PA, lateral, and oblique views of the left hand. FINDINGS: The bones and soft tissues are normal. No fracture. Alignment is anatomic. Joint spaces are maintained. No erosions or soft tissue calcifications. XR/XR hand LT min 3V IMPRESSION: Unremarkable left hand. Electronically signed by: Jony Santana MD 02/11/2025 01:02 PM PRIYANK
== END 2025-02-11 11:58 | disposition home or self-care (01) ==
LOC: HO.XRAY 11:57
PROVIDERS: PCP Internal Medicine Geriatric Medicine; Visit Provider Internal Medicine
DX: M79.642 Pain in left hand (principal)
CPT/HCPCS: 73130

== ENCOUNTER → 2025-02-11 12:07 | Outpatient (BNV) | payer MEDICAID, SELFPAY | PROVIDERS: PCP Internal Medicine Geriatric Medicine; Visit Provider Radiology Diagnostic Radiology | DX: M79.642 Pain in left hand (principal) | CPT/HCPCS: 73130 ==

== ENCOUNTER 2025-02-19 11:36 | Outpatient (REF) | payer MEDICAID, SELFPAY ==
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
--- OUTSIDE RECORDS SUMMARY | 2025-02-19 14:41 | XMS_ITS | Encounter Summary ---
Author Organization [employer] Address 75 [facility] 7t [place] [address] Care Team Providers Care Buckle Stringer Name Role Phone Name, Abdon GRAJEDA Primary Care Provider [phone] Reason for Visit * Reason Comments Med Refill Encounter Details Date Type Department Care Team ([facility] st Contact Info) Description 02/16/2025 Refill [facility] MED[facility]INE [address] [place] [address] Name, MD Abdon [address] [place] [address] Social History Tobacco Use Types Packs/Day Years [...] Care Team (Late st Contact Info) Description 02/26/2025 11:00 AM EST Office Visit [address] [address] Name, MD Abdon [address] [place] [address] 04/03/2025 11:30 AM EST Clinical Support [address] [address] Ciarra De Leon, KATHERINE documented as of this encounter Goals Goal Patient Goal Type Associated Problems Recent Progress Patient-Stated? Author Blood Pressure < 140/90 Blood Pressure 151/95(2024 1:19 PM EST) No Puia, Joanne, PharmD Record your blood pressure periodically Blood Pressure No Puia, Joanne, PharmD documented as of this encounter Visit Diagnoses Not on filedocumented in this encounter Additional Health Concerns Assessment Noted Time PHQ-9 Depression Total Score: 14 025 4:24 PM EDT documented as of this encounter Care Teams Buckle Stringer Relationship Specialty Start Date End Date Abdon Lopes MD [address] [place] [address] PCP - General Family Medicine 07/27/17 documented as of this encounter
--- OUTSIDE RECORDS SUMMARY | 2025-02-19 14:41 | XMS_ITS | Encounter Summary ---
Author Organization [employer] Address 75 [facility] 7t [place] [address] Care Team Providers Care Prop Worker Name Role Phone Name, Abdon GRAJEDA Primary Care Provider [phone] Encounter Details Date Type Department Care Team ([facility] Contact Info) Description 02/11/2025 Results Follow-Up [facility] [address] [place], [place] [phone] Tyron Larkin MD 505 [place] [address] XR Hand 3+ Views Left Social History Tobacco Use Types Packs/Day Years [...] Description 02/26/2025 11:00 AM EST Office Visit [address] [address] NameAbdon MD [address] [place] [address] 04/03/2025 11:30 AM EST Clinical Support [address] [address] Ciarra De Leon RN documented as of [...] documented as of this encounter Care Teams Prop Worker Relationship Specialty Start Date End Date Abdon Lopes MD [address] [place] [address] PCP - General Family Medicine 07/27/17 documented as of this encounter
--- OUTSIDE RECORDS SUMMARY | 2025-02-19 14:41 | XMS_ITS | Encounter Summary ---
Author Organization [employer] Address 75 [facility] 7 [place] [address] Care Team Providers Care Stock Blender Name Role Phone Name, Abdon GRAJEDA Primary Care Provider [phone] Reason for Referral * Consultation (Routine) - Closed Specialty Diagnoses / Procedures Referred By Katja cagle Referred To Contact Occupational Therapy Diagnoses Left hand pain Tyron Larkin MD [address] [place] [address] Phone: tel: fax: [facility] Physical Therapy [address] [place] [address] Phone: tel: fax: Referral ID Status Reason Start Date Expiration Date V isits Requested Visits Authorized [id number] Closed Specialty Services Required 02/11/2025 02/11/2026 1 1 Encounter Details Date Type Department Care Team ([facility] Contact Info) Description 02/11/2025 Orders Only [facility] [address] [place] [address] Tyron Larkin MD [address] [place] [address] Left hand pain (Primary Dx) Social History Tobacco Use Types Packs/Day Years [...] Description 02/26/2025 11:00 AM EST Office Visit [facility] MED[facility]INE [address] [place] [address] Name, MD Abdon [address] [place] [address] 04/03/2025 11:30 AM EST Clinical Support [address] [address] Ciarra De Leon, KATHERINE Scheduled Referrals Name Type Priority Associated Diagnoses Order Schedule Referral to Occupational Therapy Outpatient Referral Routine Left hand pain Expected: 02/11/2025 (Approximate), Expires: 02/11/2026 documented as of this encounter Goals Goal Patient Goal Type Associated Problems Recent Progress Patient-Stated? Author Blood Pressure < 140/90 Blood Pressure 151/95(2024 1:19 PM EST) No PuiaErnstJoanne, PharmD Record your blood pressure periodically Blood Pressure No Joanne Jaime, PharmD documented as of this encounter Visit Diagnoses Diagnosis Left hand pain- Primary Pain in soft tissues of limb documented in this encounter Additional Health Concerns Assessment Noted Time PHQ-9 Depression Total Score: 14 025 4:24 PM EDT documented as of this encounter Care Teams Stock Blender Relationship Specialty Start Date End Date Name, MD Abdon [address] [place] [address] PCP - General Family Medicine 07/27/17 documented as of this encounter
--- OUTSIDE RECORDS SUMMARY | 2025-02-19 14:42 | XMS_ITS | Encounter Summary ---
Author Organization [employer] Address 75 [facility] 7t [place] [address] Care Team Providers Care Cane Loader Name Role Phone Name, Abdon GRAJEDA Primary Care Provider [phone] Joanne Jaime PharmD Unavailable [phone] Nicolette Robledo RN Unavailable Unavailable Blaine Day Unavailable Reason for Visit * Reason Comments Med Refill Encounter Details Date Type Department Care Team (Late st Contact Info) Description 09/04/2023 Refill [facility] MEDICINE [address] [place] [address] Name, MD Abdon [address] [place] [address] Chronic pain syndrome; Pain in right hand; [...] Description 02/26/2025 11:00 AM EST Office Visit [facility] [address] [place] [address] NameAbdon MD [address] [place] [address] 04/03/2025 11:30 AM EST Clinical Support [address] [address] Ciarra De Leon, RN documented as of [...] documented as of this encounter Care Teams Cane Loader Relationship Specialty Start Date End Date Abdon Lopes MD [address] [place] [address] PCP - General Family Medicine 07/27/17 Puia, Joanne, PharmD [address] [place] [address] Pharmacist Internal Medicine 07/27/21 03/10/24 Nicolette Robledo, KATHERINE [address] [place] [address] Electric Organ Inspector And RepairerRubber Roller Grinder Operator Medicine 08/25/23 10/22/23 Blaine Day Community Health Worker 08/29/2310/21 documented as of this encounter
--- OUTSIDE RECORDS SUMMARY | 2025-02-19 14:42 | XMS_ITS | Encounter Summary ---
Author Organization [employer] Address 75 [facility] 7t [place] [address] Care Team Providers Care Cutting Torch Operator Name Role Phone Name, Abdon GRAJEDA Primary Care Provider [phone] Joanne Jaime PharmD Unavailable [phone] Nicolette Robledo RN Unavailable Unavailable Blaine Day Unavailable Reason for Visit * Reason Onset Date Comments Med Refill 03/17/2023 Encounter Details Date Type Department Care Team (Late st Contact Info) Description 03/17/2023 Telephone [facility] MEDICINE 230 [place] [address] Name, MD Abdon [address] [place] [address] Med Refill Social History Tobacco Use Types [...] immediate release tablet To be sent to: [facility] [place] - [phone] [place] - [address] documented in this encounter Plan of Treatment Upcoming Encounters Date Type Department Care Team (Late st Contact Info) Description 02/26/2025 11:00 AM EST Office Visit [facility] [address] [place] [address] [phone] Name, MD Abdon [facility] [place] [address] 04/03/2025 11:30 AM EST Clinical Support [facility] [place] [address] Ciarra De Leon, RN documented as of [...] documented as of this encounter Care Teams Cutting Torch Operator Relationship Specialty Start Date End Date Name, MD [place] [address] PCP - General Family Medicine 07/27/17 Puia, Joanne, PharmD [facility] [place] [address] Pharmacist Internal Medicine 07/27/21 03/10/24 Nicolette Robledo RN [address] [place] [address] Parking AssistantSaddle Mechanic Medicine 08/25/23 10/22/23 Blaine Day Community Health Worker 08/29/2310/21 documented as of this encounter
--- OUTSIDE RECORDS SUMMARY | 2025-02-19 14:42 | XMS_ITS | Encounter Summary ---
Author Organization [employer] Address 75 [facility] 7t [place] [address] Care Team Providers Care Manager Of Selection And Assessment Name Role Phone Name, Abdon GRAJEDA Primary Care Provider [phone] Joanne Jaime PharmD Unavailable [phone] Nicolette Robledo RN Unavailable Unavailable Blaine Day Unavailable Reason for Visit * Reason Comments Med Refill Encounter Details Date Type Department Care Team ([facility] st Contact Info) Description 03/21/2023 Refill [facility] MEDICINE [address] [place] [address] Name, MD Abdon [address] [place] [address] Chronic pain syndrome Social History Tobacco Use [...] Description 02/26/2025 11:00 AM EST Office Visit [address] [address] NameAbdon MD [address] [place] [address] 04/03/2025 11:30 AM EST Clinical Support [address] [address] Ciarra De Leon, KATHERINE documented as of this encounter Goals Goal Patient Goal Type Associated Problems Recent Progress Patient-Stated? Author Blood Pressure < 140/90 Blood Pressure 151/95(2024 1:19 PM EST) No Joanne Jaime, PharmD Record your blood pressure periodically Blood Pressure No Joanne Jaime, PharmD documented as of this encounter Visit Diagnoses Diagnosis Chronic pain syndrome documented in this encounter Additional Health Concerns Assessment Noted Time PHQ-9 Depression Total Score: 20 023 9:16 AM EDT documented as of this encounter Care Teams Manager Of Selection And Assessment Relationship Specialty Start Date End Date Abdon Lopes MD [address] [place] [address] PCP - General Family Medicine 07/27/17 Joanne Jaime, PharmD [address] [place] [address] Pharmacist Internal Medicine 07/27/21 03/10/24 Nicolette Robledo, KATHERINE 230 [facility] [place] [address] Customer Account ManagerChecker Medicine 08/25/23 10/22/23 Blaine Day Community Health Worker 08/29/2310/21 documented as of this encounter
--- OUTSIDE RECORDS SUMMARY | 2025-02-19 14:42 | XMS_ITS | Encounter Summary ---
Author Organization [employer] Address 75 [facility] 7t [place] [address] Care Team Providers Care Dairy Tester Name Role Phone Name, Abdon GRAJEDA Primary Care Provider [phone] Joanne Jaime PharmD Unavailable [phone] Nicolette Robledo RN Unavailable Unavailable Blaine Day Unavailable Reason for Visit * Reason Onset Date Comments Med Refill 02/22/2023 Encounter Details Date Type Department Care Team (Late st Contact Info) Description 02/22/2023 Telephone [facility] MEDICINE 230 [place] [address] Name, MD Abdon [address] [place] [address] Med Refill Social History Tobacco Use Types [...] Description 02/26/2025 11:00 AM EST Office Visit [address] [address] Abdon Lopes MD [address] [place] [address] 04/03/2025 11:30 AM EST Clinical Support [address] [address] Ciarra De Leon, KATHERINE documented as of [...] documented as of this encounter Care Teams Dairy Tester Relationship Specialty Start Date End Date Abdon Lopes MD [address] [place] [address] PCP - General Family Medicine 07/27/17 Joanne Jaime PharmD [address] [place] [address] Pharmacist Internal Medicine 07/27/21 03/10/24 Nicolette Robledo RN [address] [place] [address] Termite Control TechnicianWine And Spirits Clerk Medicine 08/25/23 10/22/23 Blaine Day Community Health Worker 08/29/2310/21 documented as of this encounter
--- OUTSIDE RECORDS SUMMARY | 2025-02-19 14:42 | XMS_ITS | Encounter Summary ---
Author Organization [employer] Address 75 [facility] 7t [place] [address] Care Team Providers Care Paper Processing Machine Helper Name Role Phone Name, Abdon GRAJEDA Primary Care Provider [phone] Joanne Jaime PharmD Unavailable [phone] Nicolette Robledo RN Unavailable Unavailable Blaine Day Unavailable Reason for Visit * Reason Onset Date Comments [facility] Application 04/25/2022 I call ed the pt regarding an application for the [facility]. He stated that he would like for the same information that was listed on the 09/17/2021 [facility] form, to be listed on the new form. I informed him that if he wants sensitive information to be listed, he needs to initial the back of the release of information. He stated that he gives verbal authorization for it to be listed, and will initial the release when he comes to the [facility] Dept to olive picker the form. Encounter Details Date Type Department Care Team (Late st Contact Info) Description 04/25/[address] [facility] MEDICINE [address] [place] [address] Name, MD Abdon 230 [place], [place] [phone] [facility] Application (I called the pt regarding an application for the [facility]. He stated that he would like for the same information that was listed on the 09/17/2021 [facility] form, to be listed on the new form. I informed him that if he wants sensitive information to be listed, he needs to initial the back of the release of information. He stated that he gives verbal authorization for it to be listed, and will initial the release when he comes to the [facility] Dept to olive picker the form.) Social History Tobacco Use Types [...] In the last 10 days, have usman funk been in contact with someone who was confirmed or suspected to have Coronavirus/COVID-19? No / Unsure 04/13/2022 3:37 PM EST documented as of this encounter Plan of Treatment Upcoming Encounters Date Type Department Care Team (Late st Contact Info) Description 02/26/2025 11:00 AM EST Office Visit [address] [address] Name, MD Abdon [address] [place] [address] 04/03/2025 11:30 AM EST Clinical Support [address] [address] Ciarra De Leon, KATHERINE documented as of this encounter Visit Diagnoses Not on filedocumented in this encounter Care Teams Paper Processing Machine Helper Relationship Specialty Start Date End Date Name, MD Abdon [address] [place] [address] PCP - General Family Medicine 07/27/17 Joanne Jaime PharmD [address] [place] [address] Pharmacist Internal Medicine 07/27/21 03/10/24 Nicolette Robledo, KATHERINE [address] [place] [address] Rehab AidRubber Stamp Die Inspector Medicine 08/25/23 10/22/23 Blaine Day Community Health Worker 08/29/2310/21 documented as of this encounter
--- OUTSIDE RECORDS SUMMARY | 2025-02-19 14:42 | XMS_ITS | Encounter Summary ---
Author Organization [employer] Address 75 [facility] 7t [place] [address] Care Team Providers Care Furniture Assembler Name Role Phone Name, Abdon GRAJEDA Primary Care Provider [phone] Joanne Jaime PharmD Unavailable [phone] Nicolette Robledo RN Unavailable Unavailable Blaine Day Unavailable Reason for Visit * Reason Comments Med Refill Encounter Details Date Type Department Care Team ([facility] st Contact Info) Description 03/22/2023 Refill [facility] MEDICINE [address] [place] [address] Name, MD Abdon 230 [place] [address] Chronic pain syndrome Social History Tobacco Use [...] Description 02/26/2025 11:00 AM EST Office Visit [address] [address] NameAbdon MD [address] [place] [address] 04/03/2025 11:30 AM EST Clinical Support [address] [address] Ciarra De Leon, KATHERINE documented as of [...] documented as of this encounter Care Teams Furniture Assembler Relationship Specialty Start Date End Date Abdon Lopes MD [address] [place] [address] PCP - General Family Medicine 07/27/17 Joanne Jaime, PharmD [address] [place] [address] Pharmacist Internal Medicine 07/27/21 03/10/24 Nicolette Robledo, KATHERINE 230 [facility] [place] [address] Scanning SupervisorSteel Erecting Pusher Medicine 08/25/23 10/22/23 Blaine Day Community Health Worker 08/29/2310/21 documented as of this encounter
--- OUTSIDE RECORDS SUMMARY | 2025-02-19 14:42 | XMS_ITS | Encounter Summary ---
Author Organization [employer] Address 75 [facility] 7t [place] [address] Care Team Providers Care Test Architect Name Role Phone Name, Abdon GRAJEDA Primary Care Provider [phone] Joanne Jaime PharmD Unavailable [phone] Nicolette Robledo RN Unavailable Unavailable Blaine Day Unavailable Reason for Visit * Reason Comments Med Refill Encounter Details Date Type Department Care Team ([facility] st Contact Info) Description 02/13/2023 Refill [facility]INE 230 [place] [address] Name, MD Abdon [address] [place] [address] Chronic pain syndrome Social History Tobacco Use [...] Description 02/26/2025 11:00 AM EST Office Visit [address] [address] NameAbdon MD [address] [place] [address] 04/03/2025 11:30 AM EST Clinical Support [address] [address] Ciarra De Leon, KATHERINE documented as of [...] as of this encounter Care Teams Test Architect Relationship Specialty Start Date End Date Abdno Lopes MD [address] [place] [address] PCP - General Family Medicine 07/27/17 Joanne Jaime, PharmD [address] [place] [address] Pharmacist Internal Medicine 07/27/21 03/10/24 Nicolette Robledo, KATHERINE 230 [facility] [place] [address] Pumper HelperNailing Machine Operator Automatic Medicine 08/25/23 10/22/23 Blaine Day Community Health Worker 08/29/2310/21 documented as of this encounter
--- OUTSIDE RECORDS SUMMARY | 2025-02-19 14:42 | XMS_ITS | Encounter Summary ---
Author Organization [employer] Address 75 [facility] 7t [place] [address] Care Team Providers Care Extractive Metallurgist Name Role Phone Name, Abdon GRAJEDA Primary Care Provider [phone] Joanne Jaime PharmD Unavailable [phone] Nicolette Robledo RN Unavailable Unavailable Blaine Day Unavailable Reason for Visit * Reason Comments Med Refill Encounter Details Date Type Department Care Team (Late st Contact Info) Description 02/23/2023 Refill [facility] MEDICINE [address] [place] [address] Name, MD Abdon 230 [place] [address] Pain in right hand; Other specified soft [...] Description 02/26/2025 11:00 AM EST Office Visit [address] [address] NameAbdon MD [address] [place] [address] 04/03/2025 11:30 AM EST Clinical Support [address] [address] Ciarra De Leon, KATHERINE documented as of [...] documented as of this encounter Care Teams Extractive Metallurgist Relationship Specialty Start Date End Date Abdon Lopes MD [address] [place] [address] PCP - General Family Medicine 07/27/17 Puia, Joanne, PharmD [address] [place] [address] Pharmacist Internal Medicine 07/27/21 03/10/24 Nicolette Robledo, KATHERINE 230 [place] [address] Crisis SpecialistFour Corner Stayer Machine Operator Medicine 08/25/23 10/22/23 Blaine Day Community Health Worker 08/29/2310/21 documented as of this encounter
--- OUTSIDE RECORDS SUMMARY | 2025-02-19 14:42 | XMS_ITS | Encounter Summary ---
Author Organization [employer] Address 75 [facility] 7t [place] [address] Care Team Providers Care Optical Glass Inspector Name Role Phone Name, Abdon GRAJEDA Primary Care Provider [phone] Reason for Visit * Reason Comments Med Refill Encounter Details Date Type Department Care Team ([facility] st Contact Info) Description 02/19/2025 Refill [facility] MEDICINE 230 [place] [address] Name, MD Abdon 230 [place] [address] Asthma, unspecified asthma severity, unspecified whether complicated, [...] Description 02/26/2025 11:00 AM EST Office Visit [address] [address] Abdon Lopes MD [address] [place] [address] 04/03/2025 11:30 AM EST Clinical Support [address] [address] Ciarra De Leon, RN documented as of [...] documented as of this encounter Care Teams Optical Glass Inspector Relationship Specialty Start Date End Date Abdon Lopes MD [address] [place] [address] PCP - General Family Medicine 07/27/17 documented as of this encounter
--- OUTSIDE RECORDS SUMMARY | 2025-02-19 14:42 | XMS_ITS | Encounter Summary ---
Author Organization [employer] Address 75 [facility] 7t [place] [address] Care Team Providers Care Occupational Therapist Name Role Phone Name, Abdon GRAJEDA Primary Care Provider [phone] Joanne Jaime PharmD Unavailable [phone] Nicolette Robledo RN Unavailable Unavailable Blaine Day Unavailable Reason for Visit * Reason Comments Med Refill Encounter Details Date Type Department Care Team (Late st Contact Info) Description 09/04/2023 Refill [facility] MEDICINE 230 [place] [address] Name, MD Abdon [address] [place] [address] Pain in right hand; Other specified soft [...] your housing situation today? I have verona shcumacher 07/20/[address] you li [...] Description 02/26/2025 11:00 AM EST Office Visit [address] [address] Name, MD Abdon [address] [place] [address] 04/03/2025 11:30 AM EST Clinical Support [address] [address] Ciarra De Leon, KATHERINE documented as of [...] documented as of this encounter Care Teams Occupational Therapist Relationship Specialty Start Date End Date Abdon Lopes MD [address] [place] [address] PCP - General Family Medicine 07/27/17 Puia, Joanne, PharmD 230 [place] [address] Pharmacist Internal Medicine 07/27/21 03/10/24 Nicolette Robledo, KATHERINE [address] [place] [address] Hemstitching Machine OperatorSchool Adjustment Counselor Medicine 08/25/23 10/22/23 Blaine Day Community Health Worker 08/29/2310/21 documented as of this encounter
--- OUTSIDE RECORDS SUMMARY | 2025-02-19 14:42 | XMS_ITS | Encounter Summary ---
Author Organization [employer] Address 75 [facility] 7t [place] [address] Care Team Providers Care First Line Supervisor Name Role Phone Name, Abdon GRAJEDA Primary Care Provider [phone] Joanne Jaime PharmD Unavailable [phone] Nicolette Robledo RN Unavailable Unavailable Blaine Day Unavailable Reason for Visit * Reason Comments Med Refill Encounter Details Date Type Department Care Team (Late st Contact Info) Description 09/29/2023 Refill [facility] MEDICINE [address] [place] [address] Anna Ferrera NP 230 [place] [address] Chronic pain syndrome Social History Tobacco Use [...] Description 02/26/2025 11:00 AM EST Office Visit [address] [address] Name, MD Abdon [address] [place] [address] 04/03/2025 11:30 AM EST Clinical Support [address] [address] Ciarra De Leon RN documented as of [...] documented as of this encounter Care Teams First Line Supervisor Relationship Specialty Start Date End Date Abdon Lopes MD [address] [place] [address] PCP - General Family Medicine 07/27/17 Puia, Joanne, PharmD [address] [place] [address] Pharmacist Internal Medicine 07/27/21 03/10/24 Nicolette Robledo RN [address] [place] [address] Senior AnalystOwner Oral Surgeon Medicine 08/25/23 10/22/23 Blaine Day Community Health Worker 08/29/2310/21 documented as of this encounter
--- OUTSIDE RECORDS SUMMARY | 2025-02-19 14:42 | XMS_ITS | Clinical Summary ---
Author Organization [employer] Address [address] [facility] 7[address] [place] [address] Care Team Providers Care Syrup Machine Laborer Name Role Phone Name, Abdon GRAJEDA Primary Care Provider [phone] Allergies No known active allergies Medications * [...] affected nostril(s) if needed for opioid reversal. [place] 0.1 milliliter by intranasal route in 1 nostril may repeat dose every 2-3 minutes as needed alternating nostrils with each dose 2 each 2 02/28/20 23 Active gabapentin (Neurontin) 300 MG capsule Take 300 mg by mouth 3 times daily. 08/09/19 24 Active Multiple Vitamins-Boxing Inspector als (Cerovite Senior) tablet TAKE 1 TABLET [...] allergies. 90 tablet 3 07/24/19 25 Active omeprazole (PriLOSEC) [address] capsuleIndicat ions:Heartburn TAKE 1 CAPSULE BY MOUTH TWICE A DAY. DO NOT CRUSH OR CHEW. 180 capsule 12/26/19 25 Active acetaminophen (Tylenol 8 Hour) 650 MG ER tablet TAKE 1 TABLET BY MOUTH EVERY 8 HOURS NEEDED FOR PAIN leve. do not crush, chew, or split 40 tablet 1 5 8:26 AM EST 01/04/20 25 Active lidocaine (Lidoderm) 5 % patch APPLY 1 PATCH TOPICALLY ONCE DAILY NEEDED FOR PAIN leve. remove patch after 12 hours 15 patch 1 5 8:26 AM EST 01/07/20 25 Active nabumetone (Relafen) 500 MG tabletIndicati ons:Pain in right hand,Other specified soft tissue disorders TAKE 1 TABLET BY MOUTH two (2) times a day NEEDED PAIN KNEE 30 tablet 1 02/05/20 25 Active oxyCODONE (Roxicodone) 10 MG immediate release tabletIndicati ons:Chronic pain syndrome Take 1 tablet (10 mg) by mouth every 12 (twelve) hours if needed for severe pain. Do not start before February 19, 2025. 56 tablet 5 8:26 AM EST 02/20/20 25 025 Active morphine CR (MS Contin) 15 MG 12 hr tabletIndicati ons:Chronic pain syndrome Take 1 tablet (15 mg) by mouth every 12 (twelve) hours. Do not crush, chew, or split. Do not start before February 19, 2025. 56 tablet 5 8:26 AM EST 02/20/20 25 025 Active naproxen (Naprosyn) 500 MG tablet Take 1 tab with food twice daily x 5 days then as needed 30 tablet 5 5:45 PM EST 02/14/20 25 Active Diclofenac Sodium 1 % gel APPLY 2 gramos TOPICALLY IN THE MORNING, AT NOON, IN THE EVENING, AND AT BEDTIME FOR PAIN 100 g 5 5 8:26 AM EST 02/18/20 25 Active Ventolin HFA 108 (90 Base) MCG/ACT inhalerIndicat ions:Asthma, unspecified asthma severity, unspecified whether complicated, unspecified whether persistent INHALE 2 PUFF BY MOUTH EVERY 4 TO 6 HOURS NEEDED 18 g 02/20/20 25 Active Diclofenac Sodium 1 % gel APPLY 2 gramos TOPICALLY IN THE MORNING, AT NOON, IN THE EVENING, AND AT BEDTIME FOR PAIN 100 g 5 07/31/19 25 025 Discontinued Ventolin HFA 108 (90 Base) MCG/ACT inhalerIndicat ions:Asthma, unspecified asthma severity, unspecified whether complicated, unspecified whether persistent INHALE 2 PUFF BY MOUTH EVERY 4 TO 6 HOURS NEEDED 18 g 11/29/19 25 025 Discontinued nabumetone (Relafen) 500 MG tabletIndicati ons:Pain in right hand,Other specified soft tissue disorders TAKE 1 TABLET BY MOUTH two (2) times a day NEEDED FOR PAIN knee 30 tablet 1 12/10/19 25 025 Discontinued oxyCODONE (Roxicodone) 10 MG immediate release tabletIndicati ons:Chronic pain syndrome Take 1 tablet (10 mg) by mouth every 12 (twelve) hours if needed for severe pain for up to 28 days. Do not start before January 23, 2025. 56 tablet 01/24/20 25 025 Discontinued(R eorder (will not trigger notification to Pharmacy)) morphine CR (MS Contin) 15 MG 12 hr tabletIndicati ons:Chronic pain syndrome Take 1 tablet (15 mg) by mouth every 12 (twelve) hours for 28 days. Do not crush, chew, or split. Do not start before January 23, 2025. 56 tablet 01/24/20 25 025 Discontinued(R eorder (will not trigger notification to Pharmacy)) Ventolin HFA 108 (90 Base) MCG/ACT inhalerIndicat ions:Asthma, unspecified asthma severity, unspecified whether complicated, unspecified whether persistent INHALE 2 PUFF BY MOUTH EVERY 4 TO 6 HOURS NEEDED 18 g 01/23/20 025 Discontinued celecoxib (CeleBREX) 200 MG capsuleIndicat ions:Left hand pain Take 1 capsule (200 mg) by mouth 2 times daily. Hold Nabumetone while taking that medication. 30 capsule 4:54 PM EST 02/11/20 025 Discontinued(I neffective) naproxen (Naprosyn) 500 MG tablet Take 1 tab with food twice daily x 5 days then as needed 30 tablet 02/14/20 Discontinued(D uplicate order (will not trigger notification to Pharmacy)) Active Problems Problem Noted Date Diagnosed Date Anxiety 02/13/2025 Long-term current use of opiate analgesic 2024 [...] back pain 09/18/2017 Hemangioma 09/18/2017 Schizoaffective disorder (CMS/HCC) 09/18/2017 Asthma 07/27/2017 Chronic pain syndrome 07/27/2017 Moderate episode of recurren t major depressive disorder (CMS/HCC) 07/27/2017 Assessment & Plan (11/08/2022 4:20 PM [...] pain and falling out of touch with [facility] one care Nella [place]. Patient will benefit from continued OP therapy, [...] of change. PLAN: 1. Follow up with [facility]: Recommended for follow-up: 11/16/22 with PCP 2. Patient goal is to increase coping mechanisms and decrease depressive symptoms 3. Behavioral Recommendations a. 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 PCP med management possible increase c. OP therapy Encounters Date Type Department Care Team Description 02/19/2025 Refill [facility] [address] [place] [address] NameAbdon MD Asthma, unspecified asthma severity, unspecified whether complicated, unspecified whether persistent 02/16/2025 Refill [facility] [address] [place], [place] [phone] NameAbdon MD 02/13/2025 1:20 PM EST Office Visit [facility] [address], [place] [phone] Shasha Sams FNP Left hand pain (Primary Dx); Arthritis of hand, left; Anxiety 02/13/2025 Travel 02/13/2025 Refill [facility] [address], [place] [phone] Abdon Lopes MD Chronic pain syndrome 02/13/2025 Telephone [facility] [address] [place] [address] Abdon Lopes MD Nurse Triage 02/11/2025 Results Follow-Up [facility] [address] [place] [address] Tyron Larkin MD XR Hand 3+ Views Left 02/11/2025 Orders Only [facility] [address] [place] [address] Tyron Larkin MD Left hand pain (Primary Dx) 02/10/2025 4:00 PM EST Office Visit [facility] [address] [place] [address] Tyron Larkin MD Left hand pain (Primary Dx) 02/10/2025 Travel 02/01/2025 Refill [facility] [address] [place] [address] Abdon Lopes MD Pain in right hand; Other specified soft tissue disorders 01/29/2025 Telephone [facility] [address] [place] [address] Abdon Lopes MD Durable Medical Equipment 01/22/2025 Refill [facility] [address] [place] [address] Abdon Lopes MD Asthma, unspecified asthma severity, unspecified whether complicated, unspecified whether persistent 01/20/2025 Refill [facility] [address] [place] [address] Abdon Lopes MD Chronic pain syndrome 01/04/2025 Refill [facility] [address] [place] [address] Abdon Lopes MD 01/03/2025 Refill [facility] [address] [place] [address] Abdon Lopes MD 01/01/2025 11:30 AM EDT Clinical Support [facility] [address] [place] [address] Ciarra De Leon RN Long-term current use of opiate analgesic (Primary Dx) 01/01/2025 Travel 12/25/2024 Refill [facility] [address] [place] [address] NameAbdon MD Heartburn 12/23/2024 Refill [facility] [address] [place] [address] Abdon Lopes MD Chronic pain syndrome 12/07/2024 Refill [facility] [address] [place] [address] Abdon Lopes MD Pain in right hand; Other specified soft tissue disorders 11/29/2024 Telephone [facility] [address] [place] [address] Abdon Lopes MD Nurse Triage 11/28/2024 Refill [facility] [address] [place] [address] Abdon Lopes MD Asthma, unspecified asthma severity, unspecified whether complicated, unspecified whether persistent 11/22/2024 Telephone [facility] [address] [place] [address] Abdon Lopes MD 11/22/2024 Travel 11/21/2024 Refill [facility] [address] [place] [address] Abdon Lopes MD Chronic pain syndrome from Last 3 Months Immunizations Immunization Administration [...] Sign Reading Time Taken Comments Blood Pressure 151/95 02/13/2025 1:19 PM EST Pulse 86 02/13/2025 1:19 PM EST Temperature 36.7 C (98 F) 02/13/2025 1:19 PM EST Respiratory Rate 18 02/13/2025 1:19 PM EST Oxygen Saturation 99% 02/13/2025 1:19 PM EST Inhaled Oxygen Concentration - - Weight 81.6 kg (180 lb) 02/13/2025 1:19 PM EST Height 185.4 cm (6' 1 ) 02/10/2025 3:07 PM EST Body Mass Index 23.75 02/10/2025 3:07 PM EST Plan of Treatment Upcoming Encounters Date Type Department Care Team (Late st Contact Info) Description 02/26/2025 11:00 AM EST Office Visit [facility] [place] [address] Name, MD [facility] [place] [address] 04/03/2025 11:30 AM EST Clinical Support [facility] [place] [address] Ciarra De Leon, RN Health Maintenance Due Date Last Done Comments CT Colonography 1974 Colonoscopy 1974 Colorectal Cancer Screening 1974 FIT DNA/Cologuard 1974 FIT 1974 FOBT 1975 Sigmoidoscopy 1975 Family Planning (PISQ) 1989 Pneumococcal Vaccine: 50+ Years (2 of 2 - PPSV23, PCV20, or PCV21) 04/24/2017 02/27/2017 RSV Patients and Patients Aged 60 years or older (1 - Risk 50-74 years 1-dose series) 2024 Zoster Vaccines (1 of 2) 2024 COVID-19 Vaccine ( season) 2024 02/15/2022, 03/17/2021, 08/27/2020, Additional history exists Influenza Vaccine (#1) 2024 , 02/15/2022, 02/15/2022, Additional history exists Depression Monitoring 01/29/2025 07/29/2024, 025 Alcohol/Substance Use Screening 07/29/2025 07/29/2024 Disability Screening 07/29/2025 07/29/2024 SDOH Screening 07/29/2025 07/29/2024 Tobacco Screening 02/13/2026 02/13/2025 Lipid Panel 02/02/2028 02/01/2023, 09/25, 12/11/2020 DTaP/Tdap/Td Vaccines (3 - Td or Tdap) 05/24/2033 05/24/2023, 06/04/2012 HIV Screening Completed 02/01/2023, 10/13/2021 Hepatitis C [...] Name Priority Date/Time Associated Diagnosis Comments XR HAND 3+ VIEWS LEFT Routine 02/11/2025 12:11 PM EST Left hand pain POCT BESSIE-14 URINE DRUG SCREEN Routine 01/01/2025 11:50 AM EDT Long-term current use of opiate analgesic ALBUMIN, RANDOM URINE W/CREATININE Routine 11/22/2024 1:36 PM EDT Hypertension, unspecified type BASIC METABOLIC PANEL Routine 11/22/2024 1:30 PM EDT Hypertension, unspecified type HEPATITIS C ANTIBODY Routine 02/01/2023 8:57 AM EST Screen for STD (sexually transmitted disease) HIV 1/2 ANTIGEN/ANTIBODY, FOURTH GENERATION W/RFL Routine 02/01/2023 8:57 AM EST Screen for STD (sexually transmitted disease) LIPID PANEL, STANDARD Routine 02/01/2023 8:57 AM EST Screening for cholesterol level from Last 3 Months or Most Recently Relevant to Health Maintenance Results * XR Hand 3+ Views Left (02/11/2025 12:11 PM EST) Anatomical Region Laterality Modality Upper Extremities, Hand Left Radiogra phic Imaging 02/11/2025 12:1 1 PM EST Narrative 02/11/2025 1:05 PM EST [address] [address] XRay Report Signed Patient: Chandu Virk MR#: [id number] : 1975 Acct:[id number] Age/Sex: 49 / M ADM Date: 02/11/25 Loc: HO.XRAY Attending Dr: Tyron Larkin MD Ordering Physician: Tyron Larkin MD Date of Service: 02/11/25 Procedure(s): XR hand LT min 3V Accession Number(s): [id number] cc: Tyron Larkin MD; Name,Abdon GRAJEDA Reason for Exam: left hand pain EXAMINATION: XR HAND, LEFT CLINICAL INFORMATION: left hand pain COMPARISON: None available. TECHNIQUE: PA, lateral, and oblique views of the left hand. FINDINGS: The bones and soft tissues are normal. No fracture. Alignment is anatomic. Joint spaces are maintained. No erosions or soft tissue calcifications. XR/XR hand LT min 3V IMPRESSION: Unremarkable left hand. Electronically signed by: Jony Santana MD 02/11/2025 01:02 PM EST RP Dictated By: Jony Santana MD Signed By: <Electronically signed by Jony Santana MD in OV> 02/11/25 1302 DD/ 1211 TD/TT: 02/11/25 1214 Psychology Physician: Procedure Note Donotuseinterpreter, Image - 02/11/[address] [address] XRay Report Signed Patient: Chandu Virk MR#: [id number] : 1975Acct:[id number] Age/Sex: 49 / MADM Date: 02/11/25 Loc: HO.XRAY Attending Dr: Tyron Larkin MD Ordering Physician: Tyron Larkin MD Date of Service: 02/11/25 Procedure(s): XR hand LT min 3V Accession Number(s): [id number] cc: Tyron Larkin MD; Name,Abdon GRAJEDA Reason for Exam: left hand pain EXAMINATION: XR HAND, LEFT CLINICAL INFORMATION: left hand pain COMPARISON: None available. TECHNIQUE: PA, lateral, and oblique views of the left hand. FINDINGS: The bones and soft tissues are normal. No fracture. Alignment is anatomic. Joint spaces are maintained. No erosions or soft tissue calcifications. XR/XR hand LT min 3V IMPRESSION: Unremarkable left hand. Electronically signed by: Jony Santana MD 02/11/2025 01:02 PM [facility] Dictated By: Jony Santana MD Signed By: <Electronically signed by Jony Santana MD in OV> 02/11/25 1302 DD/ 1211 TD/TT: 02/11/25 1214 Psychology Physician: us Tyron Larkin MD IMG XR PROCEDURES Final Res ult * (ABNORMAL) POCT BESSIE-14 Urine Drug Screen (01/01/2025 11:50 AM EDT) THC Positive(A) Negative Cocaine Screen, Urine Negative Negative Opiate Screen, Urine Positive(A) Negative Comment:SALES PROPERTY MANAGER pt, on MS Contin Methamphetamine Screen Urine Negative Negative Amphetamine Screen, Urine Negative Negative Benzodiazepines Screen, Urine Negative Negative Barbiturate Screen, Urine Negative Negative Methadone Screen, Urine Negative Negative Buprenophine Screen, Urine Negative Negative TCA, Urine Negative Negative MDMA Urine Negative Negative ng/mL Oxycodone Screen, Urine Positive(A) Negative Comment:SALES PROPERTY MANAGER pt, on Oxycodone Phencyclidine (PCP), Urine Negative Negative Propoxyphene, Urine Negative Negative Fentanyl, Urine Negative Negative Urine Urine specimen obtained by clean catch procedure / Unknown 01/01/2025 11:50 AM EDT Ciarra Oates RN - 01/01/2025 11:50 AM EDT UTOX cup Lot#[id number] Exp. 12/31/25 Internal Pass Control us Abdon Lopes MD POINT OF CARE TEST ENTER/EDIT OR DERABLES Final Result * Albumin, Random Urine W/Creatinine (11/22/2024 1:36 PM EDT) Creatinine, Urine 90.87 mg/dL [facility] Microalbumin Urine 8.0 mg/L [facility] Microalbum Creatinine Ratio Ur 8.8 <30 ug/mg cr [facility] Comment:Albumin/Creatinine R atio Reference Ranges: Normal: < 30 ug/mg creatinine Microalbuminuria: 30 - 300 ug/mg creatinineClinical Albuminuria: > 300 ug/mg creatinine Urine (Urine, Random) 11/22/2024 1:36 PM EDT 11/22/2024 4:10 PM EDT us Abdon Lopes MD LAB URINE ORDERABLES Final Resul t [facility] [address] [place] [phone] * (ABNORMAL) Basic Metabolic Panel (11/22/2024 1:30 PM EDT) Sodium 142 135 - 145 mmol/L [facility] Potassium 4.1 3.3 - 5.1 mmol/L [facility] Chloride 109(H) 96 - 108 mmol/L [facility] Carbon Dioxide 24 22 - 29 mmol/L [facility] Anion Gap 13 12 - 20 [facility] Urea Nitrogen (BUN) 11 9 - 16 mg/dL [facility] Creatinine, Serum 0.82 0.5 - 1.4 mg/dL [facility] Estimated Glomerular Filt Rate >60 [facility] Comment:Chronic Kidney Disea se: Estimated GFR < 60 mL/min/1.84u9Enworg Kidney Disease: Estimated GFR < 15 mL/min/1.73m2 Glucose 115 60 - 115 mg/dL [facility] Calcium 9.5 8.4 - 10.2 mg/dL [facility] Blood Venous blood specimen / Unknown 11/22/2024 1:30 PM EDT 11/22/2024 5:25 PM EDT us Abdon Lopes MD LAB BLOOD ORDERABLES Final Resul t Performing Organization Address [facility] Co de Phone Number [facility] [address] [place] [phone] * Hepatitis C Ab (02/01/2023 8:57 AM EST) Hepatitis C Antibody Nonreactive Nonreactive [facility] Comment:Antibodies to HCV no t detected; does not exclude early acuteHCV infection. Blood Venous blood specimen / Unknown 02/01/2023 8:57 AM EST 02/01/2023 11:08 AM EST us Abdon Lopes MD LAB BLOOD ORDERABLES Final Resul t Performing Organization Address [facility] de Phone Number [facility] [address] [place] [phone] * HIV-1/2 Antigen and Antibodies, Fourth Generation, with Reflexes (02/01/2023 8:57 AM EST) HIV AB/AG Nonreactive Nonreactive [facility] Comment:HIV-1 p24 Ag and/or HIV-1/HIV-2 Ab not detected.A test result that is nonreactive does not exclude thepossibility of exposure to or infection with HIV-1 and/orHIV-2. Nonreactive results in this assay for individualswith prior exposure to HIV-1 and/or HIV-2 may be due toantigen and antibody levels that are below the limit ofdetection of this assay.The [employer] HIV Ag/Ab Combo assay result andsupplemental assay results should be interpreted inconjunction with the patient's clinical presentation,history and other laboratory results. If the results areinconsistent with clinical evidence, additional testing issuggested to confirm the result. Blood Venous blood specimen / Unknown 02/01/2023 8:57 AM EST 02/01/2023 11:08 AM EST us Abdon Lopes MD LAB BLOOD ORDERABLES Final Resul t Performing Organization Address [facility] Co de Phone Number [facility] [address] [place] [phone] * Lipid Panel, Standard (02/01/2023 8:57 AM EST) Triglycerides 39 <150 mg/dL [facility] Comment:Desirable Triglyceri de: less than 150 mg/dLBorderline High Triglyceride 150-199 mg/dLHigh Triglyceride: 200-499 mg/dLVery High Triglyceride: greater than or equal to 5OO mg/dL Cholesterol 166 <200 mg/dL [facility] Comment:Desirable Cholestero l: less than 200 mg/dLBorderline High Cholesterol: 200-239 mg/dLHigh Cholesterol: greater than 239 mg/dL LDL Cholesterol Calculated 96 <100 mg/dL [facility] Comment:Desirable LDL: less than 100 mg/dLNear Optimal/Above Optimal LDL: 110- 129 mg/dLBorderline High LDL: 130-159 mg/dLHigh LDL: 160-189 mg/dLVery High LDL: greater than or equal to 190 mg/dL HDL Cholesterol 63 >40 mg/dL [facility] Comment:Desirable HDL: great er than 40 mg/dL Note: This HDL assay may give artificially low results in patients with liver disease. Blood Venous blood specimen / Unknown 02/01/2023 8:57 AM EST 02/01/2023 11:08 AM EST us Abdon Lopes MD LAB BLOOD ORDERABLES Final Resul t Performing Organization Address City/[facility]/ZIP Co de Phone Number [facility] [address] [place] [address] [phone] from Last 3 Months or Most Recently Relevant to Health Maintenance Insurance [facility] C3 Care Teams Syrup Machine Laborer Relationship Specialty Start Date End Date Name, MD Abdon [address] [place] [address] PCP - General Family Medicine 07/27/17
--- OUTSIDE RECORDS SUMMARY | 2025-02-19 14:42 | XMS_ITS | Encounter Summary ---
Author Organization [employer] Address [address] [facility] [address] [place] [address] Care Team Providers Care Faculty Research Physician Name Role Phone Name, Abdon GRAJEDA Primary Care Provider [phone] Joanne Jaime PharmD Unavailable [phone] Nicolette Robledo RN Unavailable Unavailable Blaine Day Unavailable Reason for Visit * Reason Onset Date Comments Handicap Placard 09/27/2023 Encounter Details Date Type Department Care Team (Late st Contact Info) Description 09/27/2023 Telephone [facility] [address] [place] [address] Name, MD Abdon [address] [place] [address] Handicap Placard Social History Tobacco Use Types [...] 02/26/2025 11:00 AM EST Office Visit [address] [address] Name, MD Abdon [address] [place] [phone] 04/03/2025 11:30 AM EST Clinical Support [address] [address] Haley, Ciarra, RN documented as of this encounter Goals Goal Patient Goal Type Associated Problems Recent Progress Patient-Stated? Author Blood Pressure < 140/90 Blood Pressure 151/95(2024 1:19 PM EST) No Joanne Jaime, PharmFan Record your blood pressure periodically Blood Pressure No Joanne Jaime PharmD documented as of this encounter Visit Diagnoses Not on filedocumented in this encounter Additional Health Concerns Assessment Noted Time PHQ-9 Depression Total Score: 19 024 9:12 AM EST documented as of this encounter Care Teams Faculty Research Physician Relationship Specialty Start Date End Date Name, MD Abdon [address] [place] [address] PCP - General Family Medicine 07/27/17 Joanne Jaime PharmD [address] [place] [address] Pharmacist Internal Medicine 07/27/21 03/10/24 Nicolette Robledo RN [address] [place] [address] Turbine OperatorArc Trimmer Medicine 08/25/23 10/22/23 Blaine Day Community Health Worker 08/29/2310/21 documented as of this encounter
== END 2025-02-19 11:37 | disposition home or self-care (01) ==
LOC: HO.NEURO 11:36
PROVIDERS: PCP Internal Medicine Geriatric Medicine
DX: R20.0 Anesthesia of skin (principal); R20.2 Paresthesia of skin; M25.532 Pain in left wrist
CPT/HCPCS: 95886; 95909

== ENCOUNTER → 2025-02-19 11:39 | Outpatient (BNV) | payer MEDICAID, SELFPAY | PROVIDERS: PCP Internal Medicine Geriatric Medicine; Visit Provider Physical Medicine & Rehabilitation | DX: M25.532 Pain in left wrist (principal); R20.0 Anesthesia of skin | CPT/HCPCS: 95886; 95909 ==